=== PATIENT | male | born 1950 | race Caucasian/White ===

== ENCOUNTER 2016-11-25 12:56 | Day surgery (SDC) | payer MEDICARE ==
[2016-11-25 12:55] VITALS: RESP 20; TEMP 97.7
[2016-11-25 13:14] LABS: Mean Platelet Volume 7.7
[2016-11-25 13:21] LABS: INR 1.1 (<1.1); Prothrombin Time 10.9 sec (9.0-12.0)
[2016-11-25 13:28] LABS: Non-African American GFR(MDRD) >60 (>60 ml/min/1.73 sqM)
[2016-11-25] MEDS: ALBUMIN HUMAN 25% 50 ML in EMPTY BAG 1 BAG IVPB SCH ×4 (14:18→14:58)
[2016-11-25 15:44] VITALS: BP 134/73; PULSE 61
--- NOTE | 2016-11-25 20:02 | US ---
Therapeutic paracentesis. CLINICAL HISTORY: Ascites The procedure was discussed with the patient. The risks, complications, benefits, and alternatives we re discussed and any questions were answered. Informed consent was obtained. The patient was placed s upine on the ultrasound table and prepped and draped in the usual sterile fashion. All elements of maximal barrier technique were utilized. Under ultrasound guidance, access into the right lower quadrant was obtained, via the paracentesis catheter system and direct ultrasound guidanc e. Approximately 11 liters of straw-colored fluid was removed. The patient was stable throughout the pro cedure and remained stable upon discharge from Department of Radiology. IMPRESSION: Successful therapeutic paracentesis under ultrasound guidance.
== END 2016-11-25 16:10 | disposition home or self-care (01) ==
LOC: RADPROMAIN 12:56
PROVIDERS: ATTEND Family Medicine
DX: K70.31 Alcoholic cirrhosis of liver with ascites (principal)
CPT/HCPCS: 82565; 85049; 85610; 96365; 36415; 49083; P9047

== ENCOUNTER 2016-12-15 11:53 | Day surgery (SDC) | payer MEDICARE ==
[2016-12-15 12:07] VITALS: TEMP 97.4
[2016-12-15 12:19] LABS: INR 1.2 (<1.1); Prothrombin Time 11.7 sec (9.0-12.0)
[2016-12-15 12:27] LABS: ALT 29 U/L (21-72); AST 27 U/L (17-59); Alkaline Phosphatase 106 U/L (38-126); Anion Gap 12 mmol/L; Blood Urea Nitrogen 58 mg/dL (9-20); Calcium 8.3 mg/dL (8.4-10.2); Carbon Dioxide 19 mmol/L (22-30); Chloride 112 mmol/L (98-107); Glucose 111 mg/dL (74-99); Non-African American GFR(MDRD) 50 (>60 ml/min/1.73 sqM); Potassium 4.7 mmol/L (3.5-5.1); Sodium 143 mmol/L (137-145); Total Bilirubin 0.6 mg/dL (0.2-1.3); Total Protein 7.1 g/dL (6.3-8.2)
[2016-12-15 12:28] LABS: Anisocytosis Slight; Basophils % (A) 1 %; CH 27.8; CHCM 30.2; Eosinophils # (A) 0.1 k/uL (0-0.7); Eosinophils % (A) 2 %; HDW 2.91; Hypochromasia Marked; Luc # (Auto) 0.19; Luc % (Auto) 3; Lymphocytes # (A) 1.3 k/uL (1.0-4.8); Lymphocytes % (A) 18 %; MCH 28.5 pg (25.0-35.0); MCHC 30.8 g/dL (31.0-37.0); MCV 92.5 fL (80.0-100.0); Mean Platelet Volume 9.1; Monocytes # (A) 0.6 k/uL (0-1.0); Monocytes % (A) 8 %; Neutrophils # (A) 4.9 k/uL (1.3-7.7); Neutrophils % (A) 69 %; RBC 2.33 m/uL (4.30-5.90); RDW 16.6 % (11.5-15.5); WBC 7.1 k/uL (3.8-10.6); WBC (Perox) 7.12
[2016-12-15 12:32] LABS: HGB 6.6 gm/dL (13.0-17.5)
[2016-12-15 12:34] LABS: HCT 21.5 % (39.0-53.0)
[2016-12-15 14:02] LABS: Cholesterol 115 mg/dL (<200); HDL Cholesterol 21 mg/dL (40-60); Triglycerides 143 mg/dL (<150)
[2016-12-15] MEDS: ALBUMIN HUMAN 25% 50 ML in EMPTY BAG 1 BAG IVPB SCH ×4 (14:19→15:06)
[2016-12-15 16:22] VITALS: BP 105/78; PULSE 76; RESP 18
--- NOTE | 2016-12-16 08:40 | US ---
Therapeutic paracentesis. CLINICAL HISTORY: Ascites The procedure was discussed with the patient. The risks, complications, benefits, and alternatives we re discussed and any questions were answered. Informed consent was obtained. The patient was placed s upine on the ultrasound table and prepped and draped in the usual sterile fashion. All elements of maximal barrier technique were utilized. Under ultrasound guidance, access into the right lower quadrant was obtained, via the paracentesis catheter system and direct ultrasound guidanc e. Approximately 14 liters of straw-colored fluid was removed. The patient was stable throughout the pro cedure and remained stable upon discharge from Department of Radiology. IMPRESSION: Successful therapeutic paracentesis under ultrasound guidance.
== END 2016-12-15 16:10 | disposition home or self-care (01) ==
LOC: RADPROMAIN 11:53
PROVIDERS: ATTEND Family Medicine
DX: R18.8 Other ascites (principal)
CPT/HCPCS: 86900; 86901; 80061; 80053; 85025; 85610; 86850; 96365; 36415; 49083; P9047

== ENCOUNTER 2016-12-15 15:54 | Inpatient (IN) | payer MEDICARE ==
[2016-12-15] MEDS ORDERED: PANTOPRAZOLE 40 MG/10 ML VIAL IVP STA (16:47)
[2016-12-15] MEDS ORDERED: OCTREOTIDE 100 MCG/ML INJ IVP STA (16:47)
[2016-12-15] MEDS ORDERED: SODIUM CHLORIDE 0.9% 1,000 ML IV STA (16:47)
[2016-12-15] MEDS ORDERED: OCTREOTIDE 200 MCG in SODIUM CHLORIDE 0.9% 100 ML IV STA (16:52)
--- NOTE | 2016-12-15 17:18 | ED ---
General Adult HPI - General Chief complaint: Recheck/Abnormal Lab/Rx Stated complaint: Dr Barbara Time Seen by Provider: 12/15/16 16:28 Source: patient Mode of arrival: wheelchair Limitations: no limitations - History of Present Illness Initial comments: This 66-year-old white male presents with a complaint of low hemoglobin. He apparently had a paracentesis done this morning and they checked his blood prior and found that his hemoglobin was 6.6. He also relates that he has had some black stools for the last 2 days. He has had occasional midepigastric abdominal pain as well. His energy level has been decreased. He denies any fevers. He does take Aleve at times but denies any known blood thinners. He does have a long history of liver disease. He has a history of alcoholic cirrhosis but stopped drinking in May 2016. He usually gets a paracentesis done every 10 days or so. He relates that they removed 14 L from his abdomen today. He also has a history of esophageal varices. No other complaints or modifying factors. - Related Data Home Medications Medication Instructions Recorded Confirmed Folic Acid 0.4 mg PO DAILY 03/04/16 12/15/16 Thiamine [Vitamin B-1] 100 mg PO DAILY 07/07/16 12/15/16 Naproxen Sodium [Aleve] 220 mg PO BID PRN 12/15/16 12/15/16 Previous Rx's Medication Instructions Recorded Metoprolol Tartrate [Lopressor] 25 mg PO BID #60 tab 06/23/16 Allergies Allergy/AdvReac Type Severity Reaction Status Date / Time Penicillins Allergy Rash/Hives Verified 12/15/16 16:45 Review of Systems ROS Statement: Those systems with pertinent positive or pertinent negative responses have been documented in the HPI. ROS Other: All systems not noted in ROS Statement are negative. Past Medical History Past Medical History: Atrial Fibrillation, Asthma, Heart Failure, COPD, GERD/ Reflux, GI Bleed, Hyperlipidemia, Hypertension, Liver Disease, Skin Disorder Additional Past Medical History / Comment(s): pancreatitis, ascities due to alcoholic cirrhosis,rt inguinal hernia, alcoholism with DTs in past, cirrhosis with therapeutic paracentesis, esophageal varices, thrombocytopenia normocytic/ normochromic anemia, ascites,emphysema, bronchitis, black stools over weekend () History of Any Multi-Drug Resistant Organisms: Unobtainable Past Surgical History: Hernia Repair Additional Past Surgical History / Comment(s): EGD, laser esophageal varices surgery, multi paracentesis ,severed tendon lt thumb repaired. Past Anesthesia/Blood Transfusion Reactions: No Reported Reaction Past Psychological History: No Psychological Hx Reported Additional Psychological History / Comment(s): Pt states he lives alone in a mobile home. He states he is independent. He uses no assistive device. He drives. Patient has bed bugs in his home and have been seen on past admissions. Smoking Status: Current every day smoker Past Alcohol Use History: None Reported, Heavy Additional Past Alcohol Use History / Comment(s): Pt states he started smoking in 1965, used to smoke 1.5 ppd(rolls own) down to 10-15 cig per day.. He states he was drinking a quart of vodka daily but quit cold turkey 10 days ago. 07/07/2016 pt states that he has quit drinking and smoking. 08/11 denies drinking. 9/ Past Drug Use History: Marijuana Additional Drug Use History / Comment(s): Pt states on occasion he will smoke marijuana but not regularly. 08/11 denies smoking - Past Family History Father Family Medical History: Coronary Artery Disease (CAD), CVA/TIA, Myocardial Infarction ([place]) Additional Family Medical History / Comment(s): Father at 75 yrs. Mother Family Medical History: COPD Additional Family Medical History / Comment(s): Mother of bronchitis. She was 68yrs old. General Exam - General Exam Comments Initial Comments: GENERAL: The patient is well nourished and well hydrated. VITAL SIGNS: Heart rate, blood pressure, respiratory rate reviewed as recorded in nurse's notes. EYES: Pupils are round and reactive. Extraocular movements are intact. No conjunctival / lid redness or swelling. ENT: No external evidence of injury, swelling, or ecchymosis. Airway is patent. Throat is clear. NECK: Nontender. No swelling or evidence of injury. No subcutaneous emphysema. Trachea is midline. No thyroid mass. HEART: Regular rate and rhythm. Good peripheral pulses. LUNGS/CHEST: Breath sounds clear and equal bilaterally. No rales, rhonchi, or wheezes. No ecchymosis, subcutaneous emphysema, or tenderness. ABDOMEN: Abdomen soft without tenderness. No palpable masses or organomegaly. No peritoneal signs. No abdominal wall swelling or ecchymosis. EXTREMITIES: No extremity tenderness. Normal muscle tone and function. No thoracolumbar tenderness. There is mild lower extremity edema noted bilaterally. NEUROLOGIC: Sensation is grossly intact. Cranial nerve exam reveals face is symmetrical, tongue is midline, speech is clear. SKIN: No abrasions or ecchymosis is noted. No induration or masses noted. PSYCHIATRIC: Alert and oriented. Appropriate behavior and judgment. Rectal exam: There is slight black stool noted on digital rectal examination. There is mild external hemorrhoids noted. Limitations: no limitations Course Vital Signs 12/15/16 15:58 Temperature 96.8 F L Pulse Rate 70 Respiratory 18 Rate Blood Pressure 104/57 O2 Sat by Pulse 100 Oximetry Medical Decision Making - Medical Decision Making The patient was seen and examined. All diagnostics were reviewed. An EKG is done which shows evidence of atrial fibrillation at a rate of 67. There is some flattened T waves in the lateral leads. There is left axis deviation. The QRS duration is 104 and the QTc interval is 41. The laboratory was reviewed from earlier today. The hemoglobin at that time was 6.6. His hemoglobin now is 5.7. His CO2 was low at 19 and his creatinine was elevated at 1.4. Hemoccult stool is positive. This felt as though his anemia likely is due to a GI bleed. It is felt as though this is likely an upper GI bleed. 2 units of blood were ordered for transfusion. Risks and benefits of transfusion were discussed and he is agreeable. Octreotide as well as Protonix are ordered. Case is discussed with Dr. Erickson and he is agreeable to admission to the hospital with Dr. Banks to consult. He does have a history of esophageal varices and bleeding varices certainly is in the differential. The possibility of a gastritis or peptic ulcer disease certainly is possible as well. - Lab Data Result diagrams: 12/15/16 17:17 Lab Results 12/15/16 12/15/16 12/15/16 Range/Units 17:17 17: 17:17 WBC 5.4 (3.8-10.6) k/uL RBC 2.01 L (4.30-5.90) m/uL Hgb 5.7 L* (13.0-17.5) gm/dL Hct 18.4 L* (39.0-53.0) % MCV 91.5 (80.0-100.0) fL MCH 28.4 (25.0-35.0) pg MCHC 31.1 (31.0-37.0) g/dL RDW 16.6 H (11.5-15.5) % Plt Count 158 (150-450) k/uL Neutrophils % 67 % Lymphocytes % 18 % Monocytes % 9 % Eosinophils % 2 % Basophils % 0 % Neutrophils # 3.7 (1.3-7.7) k/uL Lymphocytes # 1.0 (1.0-4.8) k/uL Monocytes # 0.5 (0-1.0) k/uL Eosinophils # 0.1 (0-0.7) k/uL Basophils # 0.0 (0-0.2) k/uL Hypochromasia Marked Anisocytosis Slight PT 12.4 H (9.0-12.0) sec INR 1.3 (<1.1) APTT 25.4 (22.0-30.0) sec Stool Occult Blood Positive (Negative) Blood Type Blood Type Recheck Antibody Screen Crossmatch Spec Expiration Date 12/15/16 Range/Units 17:17 WBC (3.8-10.6) k/uL RBC (4.30-5.90) m/uL Hgb (13.0-17.5) gm/dL Hct (39.0-53.0) % MCV (80.0-100.0) fL MCH (25.0-35.0) pg MCHC (31.0-37.0) g/dL RDW (11.5-15.5) % Plt Count (150-450) k/uL Neutrophils % % Lymphocytes % % Monocytes % % Eosinophils % % Basophils % % Neutrophils # (1.3-7.7) k/uL Lymphocytes # (1.0-4.8) k/uL Monocytes # (0-1.0) k/uL Eosinophils # (0-0.7) k/uL Basophils # (0-0.2) k/uL Hypochromasia Anisocytosis PT (9.0-12.0) sec INR (<1.1) APTT (22.0-30.0) sec Stool Occult Blood (Negative) Blood Type O Positive Blood Type Recheck No Antibody Screen NEGATIVE Crossmatch See Detail Spec Expiration Date 12/18/2016 Disposition Clinical Impression: GI (gastrointestinal bleed), Symptomatic anemia, Atrial fibrillation, History of esophageal varices, Hepatic failure due to alcoholism, Fatigue, Acute kidney injury, Ascites due to alcoholic cirrhosis, Upper GI bleeding, H/O ETOH abuse Disposition: ADMITTED IP TO THIS HOSP Condition: Fair Time of Disposition: 18:28 Decision Date: 12/15/16 Decision Time: 18:28
[2016-12-15 17:39] LABS: Anisocytosis Slight; Basophils % (A) 0 %; CH 27.7; CHCM 30.4; Eosinophils # (A) 0.1 k/uL (0-0.7); Eosinophils % (A) 2 %; HDW 2.94; Hypochromasia Marked; Luc % (Auto) 4; Lymphocytes % (A) 18 %; MCH 28.4 pg (25.0-35.0); MCHC 31.1 g/dL (31.0-37.0); MCV 91.5 fL (80.0-100.0); Mean Platelet Volume 8.3; Monocytes # (A) 0.5 k/uL (0-1.0); Monocytes % (A) 9 %; Neutrophils # (A) 3.7 k/uL (1.3-7.7); Neutrophils % (A) 67 %; RBC 2.01 m/uL (4.30-5.90); RDW 16.6 % (11.5-15.5); WBC 5.4 k/uL (3.8-10.6); WBC (Perox) 5.28
[2016-12-15 17:47] LABS: HCT 18.4 % (39.0-53.0); HGB 5.7 gm/dL (13.0-17.5)
[2016-12-15 18:07] LABS: INR 1.3 (<1.1); Partial Thromboplastin Time 25.4 sec (22.0-30.0); Prothrombin Time 12.4 sec (9.0-12.0)
[2016-12-15] MEDS ORDERED: SODIUM CHLORIDE 0.9% 500 ML IV STA (18:22)
[2016-12-15] MEDS ORDERED: NALOXONE 0.4 MG/ML 1 ML VIAL IV PRN (18:42)
[2016-12-15 20:45] LABS: Glucose,Whole Blood 104 mg/dL (75-99)
[2016-12-15 21:19] VITALS: BMI 22.6
[2016-12-15] MEDS: METOPROLOL TARTRATE 25 MG TAB PO SCH (21:31)
[2016-12-15] MEDS ORDERED: Potassium Replacement Protocol 1 EACH MISC MISCELLANE PRN (22:59)
[2016-12-15] MEDS ORDERED: Phosphorus Replacement Protoco 1 EACH MISC MISCELLANE PRN (22:59)
[2016-12-15] MEDS ORDERED: Magnesium Replacement Protocol 1 EACH MISC MISCELLANE PRN (22:59)
[2016-12-15] MEDS ORDERED: IPRATROPIUM-ALBUTEROL 3 ML NEB INHALATION PRN (22:59)
[2016-12-15] MEDS: SODIUM CHLORIDE 0.9% 1,000 ML IV SCH (23:00)
[2016-12-15 23:46] LABS: Appearance,Urine Clear (Clear); Bilirubin,Urine 1+ (Negative); Glucose,Urine (UA) Negative (Negative); Ketones,Urine Negative (Negative); Leukocyte Esterase,Urine Negative (Negative); Nitrite,Urine Negative (Negative); Protein,Urine Negative (Negative); Specific Gravity,Urine 1.013 (1.001-1.035); UA Billing (MACRO vs. MICRO) CHEM; Urobilinogen,Urine <2.0 mg/dL (<2.0)
[2016-12-16] MEDS ORDERED: HYDROmorphone 1 MG/ML 1 ML SYRINGE IVP PRN ×2 (00:05)
[2016-12-16] MEDS: MUPIROCIN 2% OINT 22 GM TUBE TOPICAL SCH ×4 (01:47→21:31)
[2016-12-16] MEDS: TRIAMCINOLONE 0.1% CREAM 80 GM TUBE TOPICAL PRN (01:47)
[2016-12-16 01:50] LABS: ALT 25 U/L (21-72); AST 24 U/L (17-59); Alkaline Phosphatase 77 U/L (38-126); Anion Gap 8 mmol/L; Blood Urea Nitrogen 55 mg/dL (9-20); Calcium 7.8 mg/dL (8.4-10.2); Carbon Dioxide 19 mmol/L (22-30); Chloride 115 mmol/L (98-107); Glucose 102 mg/dL (74-99); Non-African American GFR(MDRD) >60 (>60 ml/min/1.73 sqM); Phosphorous 4.7 mg/dL (2.5-4.5); Sodium 142 mmol/L (137-145); Total Bilirubin 0.7 mg/dL (0.2-1.3); Total Protein 6.4 g/dL (6.3-8.2)
[2016-12-16] MEDS: OCTREOTIDE 200 MCG in SODIUM CHLORIDE 0.9% 100 ML IV SCH ×2 (02:43→12:45)
[2016-12-16 03:33] LABS: Anisocytosis Slight; CH 28.6; CHCM 30.9; HCT 23.7 % (39.0-53.0); HDW 3.44; Hypochromasia Marked; MCH 29.3 pg (25.0-35.0); MCHC 31.4 g/dL (31.0-37.0); MCV 93.1 fL (80.0-100.0); Mean Platelet Volume 9.6; Poikilocytosis Slight; RBC 2.55 m/uL (4.30-5.90); RDW 16.5 % (11.5-15.5); WBC 5.3 k/uL (3.8-10.6)
[2016-12-16 03:38] LABS: HGB 7.4 gm/dL (13.0-17.5)
[2016-12-16 03:43] LABS: INR 1.2 (<1.1); Partial Thromboplastin Time 25.1 sec (22.0-30.0); Prothrombin Time 12.3 sec (9.0-12.0)
--- NOTE | 2016-12-16 08:29 | P.PN ---
Subjective 66-year-old male being seen in the intensive care unit the patient was admitted after patient had been reportedly experiencing black tarry stools. Patient stated the black stool started over the weekend. He stated he was bearing thing mid epigastric discomfort as well. Patient stated he felt significantly fatigued and tired with no energy and no appetite. Patient stated that he did show up yesterday to undergo his paracentesis in which 11 L were removed. Patient stated that his hemoglobin at that time was noted to be 5.7 and they advised the patient to come to the emergency room to be seen for the above- mentioned symptoms. Patient does have a history of alcohol cirrhosis patient does give a history of alcohol abuse has been an alcoholic for 40 years. Patient stated that he did quit drinking alcohol in May 2016. Additionally patient has a history of having primary softgel varices and has had multiple EGDs. Also was colonoscopy reportedly last done in 2001 patient additionally has a history of atrial fibrillation is not Coumadin anticoagulation candidate. Patient has seen Dr. Escoto GI service in the past. Patient has a hemoglobin of 5.7 on arrival was given 2 units of packed red blood cells hemoglobin up to 7.4. Patient states that he has had 2-3 black tarry stools since being admitted small volume. Patient currently is reporting no abdominal discomfort no abdominal cramping this been no hematemesis patient states that he gets paracentesis by interventional radiology every 8-10 days for symptomatic ascites Objective - Vital Signs Vital signs: Vital Signs Temp 97.6 F 12/16/16 04:00 Pulse 50 L 12/16/16 07:00 Resp 11 L 12/16/16 07:00 BP 110/61 12/16/16 06:00 Pulse Ox 100 12/16/16 07:00 Intake & Output 12/15/16 12/16/16 12/16/16 18:59 06:59 18:59 Intake Total 1183.58 62.62 Output Total 300 Balance 883.58 62.62 Weight 79.9 kg Intake: Intake, IV Titration 563.58 62.62 Amount Octreotide 200 mcg In 113.58 12.62 Sodium Chloride 0.9% 100 ml @ 25 MCG/HR 12.62 mls/ hr IV .Q8H1M DEANA Rx#: [id number] Sodium Chloride 0.9% 1, 450 50 000 ml @ 50 mls/hr IV . Q20H STA Rx#:[id number] Blood Product 620 Rc As-1 Unit 310 [id number] Rc As-1 Unit 310 [id number] Output: Urine 300 Other: Voiding Method Urinal # Voids 2 - Exam GENERAL APPEARANCE: 66-year-old male patient is alert, oriented 3, in no acute distress talkative cooperative sitting up in bed VITAL SIGNS: Reviewed HEENT: Head is normocephalic and atraumatic. Pupils are equal and reactive. The nares are patent. Oropharynx is clear without lesions. NECK: Supple without lymphadenopathy. Traches midline. HEART: S1, S2. Irregular monitor atrial fibrillation LUNGS: No crackles or wheezes are heard. ABDOMEN: Soft, slight tenderness, nondistended with good bowel sounds. No peritoneal signs. No palpable organomegaly or masses. States urinating no difficulty. Reports no nausea vomiting this been no hematemesis reports has had 3 small black stool since admission EXTREMITIES: Normal skin color and turgor. No cyanosis, rash, ulceration, clubbing or edema. Radial pedal pulses are 2/4 bilaterally. NEUROLOGICAL: No focal deficits. Strength and sensation are grossly intact. - Labs CBC & Chem 7: 12/16/16 03:29 12/16/16 01:13 Labs: Abnormal Lab Results - Last 24 Hours (Table) 12/15/16 12/15/16 12/16/16 Range/Units 20:34 23:30 01:13 RBC (4.30-5.90) m/uL Hgb (13.0-17.5) gm/dL Hct (39.0-53.0) % RDW (11.5-15.5) % Plt Count (150-450) k/uL PT (9.0-12.0) sec Chloride 115 H (98-107) mmol/L Carbon Dioxide 19 L (22-30) mmol/L BUN 55 H (9-20) mg/dL Glucose 102 H (74-99) mg/dL POC Glucose (mg/dL) 104 H (75-99) mg/dL Calcium 7.8 L (8.4-10.2) mg/dL Phosphorus 4.7 H (2.5-4.5) mg/dL Albumin 2.7 L (3.5-5.0) g/dL Urine Bilirubin 1+ H (Negative) 12/16/16 12/16/16 Range/Units 03:29 03:29 RBC 2.55 L (4.30-5.90) m/uL Hgb 7.4 L D (13.0-17.5) gm/dL Hct 23.7 L (39.0-53.0) % RDW 16.5 H (11.5-15.5) % Plt Count 131 L (150-450) k/uL PT 12.3 H (9.0-12.0) sec Chloride (98-107) mmol/L Carbon Dioxide (22-30) mmol/L BUN (9-20) mg/dL Glucose (74-99) mg/dL POC Glucose (mg/dL) (75-99) mg/dL Calcium (8.4-10.2) mg/dL Phosphorus (2.5-4.5) mg/dL Albumin (3.5-5.0) g/dL Urine Bilirubin (Negative) Assessment and Plan Plan: Impression Present on admission symptomatic acute blood loss anemia hemoglobin 5.7 with black tarry stools suspect due to to a GI bleed Chronic atrial fibrillation controlled ventricular response not an anticoagulation candidate due to esophageal varices and frequent falls History of chronic alcoholism greater than 40 years in remission last drink May 2016 per patient report Chronic thrombocytopenia Chronic ascites due to alcoholic cirrhosis with palliative paracentesis Echocardiogram January 2016 left ventricular systolic function moderately impaired EF 40-45% Chronic congestive heart failure systolic dysfunction compensated Mild protein calorie malnutrition suspect due to poor caloric intake Physical debility suspect due to chronic illness A prior MRI of the brain June 2016 chronic small vessel ischemic changes suggest vascular dementia Plan Consult gastroenterology service Monitor hemoglobin attempt keep greater than a 7.5 Keep nothing by mouth until seen by GI service Continue with protonic 40 IV daily line continue with IV fluid at 50 an hour Continue with recommendations by the internist for ICU management Further recommendations pending will follow Resume home meds when appropriate Lopressor 25 twice a day with parameters The above dictated assessment and findings were discussed with dr fleming . Impression and the plan of care have been dictated as directed. Maggie Hernandez nurse practitioner acting as a scribe for dr fleming
[2016-12-16] MEDS: PANTOPRAZOLE 40 MG/10 ML VIAL IV SCH ×2 (08:44→21:31)
[2016-12-16] MEDS: METOPROLOL TARTRATE 25 MG TAB PO SCH ×2 (08:45→21:30)
[2016-12-16] MEDS: IPRATROPIUM-ALBUTEROL 3 ML NEB INHALATION SCH ×4 (08:59→19:16)
[2016-12-16] MEDS ORDERED: PANTOPRAZOLE 40 MG/10 ML VIAL IV SCH (09:00)
--- NOTE | 2016-12-16 09:09 | P.CONS ---
History of Present Illness - Reason for Consult Consult date: 12/16/16 GI bleed and melena Requesting physician: Chucho Erickson - History of Present Illness 66-year-old gentleman patient of Dr. Chucho Erickson with a past medical history of EtOH abuse, pancreatitis, alcohol liver cirrhosis, portal hypertension, recurrent ascites with paracentesis yesterday 12/15/2016 with 14 L removal, chronic thrombocytopenia coagulopathy, esophageal varices, GI bleeding, COPD, cigarette dependency, heart failure, GERD, hypertension, asthma, hyperlipidemia. Presents with 3 day history of black stools. Taking NSAIDs; Aleve 2 tablets daily. Denies active alcohol intake. Denies fever or chills or abdominal pain. No hematemesis or hematochezia. Last black stool yesterday evening. Hemoglobin 6.6 dropped to 5.7 received 2 units of blood current hemoglobin 7.4. Platelet 131. INR 1.2. BUN 58. Creatinine 1.4. LFTs total bilirubin within normal limits. AFP less than 1.25 May 2016. Upon review of medical records average hemoglobin between 10-12. Patient does not take diuretics as he feels they don't help. No GI prophylaxis. Currently receiving IV Sandostatin. Hemodynamically stable. Afebrile. Upon review of medical records last EGD January [address] Banks however dictated report is not available to review. Review of Systems Constitutional: Denies fever, chills, sweats, weight gain, or loss. HEENT: Negative for migraines, blurred vision or loss, earaches, drainage, tinnitus, oral mucosal lesions, dysphagia, or odynophagia. Cardiac: Hypertension. Hyperlipidemia. H of fibrillation. Heart failure. Negative for chest pain, arrhythmias, or palpitation. Respiratory: Asthma. COPD. Negative for shortness of breath, hemoptysis, cough , or sputum production. Gastrointestinal: See HPI for pertinent findings. Genitourinary: Negative for hematuria, urgency, frequency, polyuria, dysuria, or penile discharge. Musculoskeletal: Negative for muscle aches, swelling, arthritis, and arthralgias. Neurologic: Negative for stroke or TIA. Endocrine: Negative for thyroid problems. Skin: Negative for rash or itching. Psychiatric: Negative history for depression and anxiety All systems: negative (See HPI) Past Medical History Past Medical History: Atrial Fibrillation, Asthma, Heart Failure, COPD, GERD/ Reflux, GI Bleed, Hyperlipidemia, Hypertension, Liver Disease, Skin Disorder Additional Past Medical History / Comment(s): pancreatitis, ascities due to alcoholic cirrhosis,rt inguinal hernia, alcoholism with DTs in past, cirrhosis with therapeutic paracentesis, esophageal varices, thrombocytopenia normocytic/ normochromic anemia, ascites,emphysema, bronchitis, black stools over weekend () History of Any Multi-Drug Resistant Organisms: None Reported Past Surgical History: Hernia Repair Additional Past Surgical History / Comment(s): EGD, laser esophageal varices surgery, multi paracentesis ,severed tendon lt thumb repaired; "ruptured navel Past Anesthesia/Blood Transfusion Reactions: Motion Sickness Past Psychological History: No Psychological Hx Reported Additional Psychological History / Comment(s): Pt states he lives alone in a mobile home. He states he is independent. He uses no assistive device. He drives. Patient has bed bugs in his home and have been seen on past admissions. Smoking Status: Current every day smoker Past Alcohol Use History: Heavy Additional Past Alcohol Use History / Comment(s): Pt states he started smoking in 1965, used to smoke 1.5 ppd(rolls own) down to 10-15 cig per day.. He states he was drinking a quart of vodka daily but quit cold turkey 10 days ago. 07/07/2016 pt states that he has quit drinking and smoking. 08/11 denies drinking. 9/ Past Drug Use History: Marijuana Additional Drug Use History / Comment(s): Pt states on occasion he will smoke marijuana but not regularly. 08/11 denies smoking - Past Family History Father Family Medical History: Coronary Artery Disease (CAD), CVA/TIA, Myocardial Infarction ([place]) Additional Family Medical History / Comment(s): Father at 75 yrs. Mother Family Medical History: COPD Additional Family Medical History / Comment(s): Mother of bronchitis. She was 68yrs old. Medications and Allergies Home Medications Medication Instructions Recorded Confirmed Type Folic Acid 0.4 mg PO DAILY 03/04/16 12/16/16 History Thiamine [Vitamin B-1] 100 mg PO DAILY 07/07/16 12/16/16 History Naproxen Sodium [Aleve] 220 mg PO BID PRN 12/15/16 12/16/16 History Allergies Allergy/AdvReac Type Severity Reaction Status Date / Time Penicillins Allergy Rash/Hives Verified 12/15/16 21:24 Physical Exam Vitals: Vital Signs Temp Pulse Resp BP Pulse Ox 12/16/16 07:00 50 L 11 L 100 12/16/16 06:00 62 39 H 110/61 100 12/16/16 05:00 47 L 13 116/64 100 12/16/16 04:00 97.6 F 53 L 11 L 105/61 100 12/16/16 03:00 62 34 H 98/63 96 12/16/16 02:00 57 L 28 H 124/65 100 12/16/16 01:30 55 L 14 108/56 100 12/16/16 01:00 55 L 13 138/67 100 12/16/16 00:30 97.6 F 59 L 16 107/73 100 12/16/16 00:20 57 L 13 136/73 100 12/16/16 00:00 97.6 F 50 L 16 131/72 100 12/15/16 23:50 55 L 15 107/56 100 12/15/16 23:30 60 20 120/85 100 12/15/16 23:20 61 16 123/63 100 12/15/16 23:00 63 18 112/57 100 12/15/16 22:50 97.6 F 63 45 H 131/76 87 L 12/15/16 22:40 97.6 F 66 26 H 105/57 98 12/15/16 22:30 97.6 F 68 28 H 105/57 95 12/15/16 22:20 97.6 F 68 15 124/61 100 12/15/16 22:10 69 15 141/72 100 12/15/16 22:00 97.6 F 72 19 141/72 100 12/15/16 21:50 80 24 139/75 94 L 12/15/16 21:30 79 16 104/66 12/15/16 21:00 97.6 F 68 22 113/61 100 12/15/16 20:00 97.6 F 73 18 121/65 12/15/16 19:50 97.8 F 83 18 135/66 12/15/16 19:46 97.2 F L 72 18 121/59 100 Intake and Output 12/15/16 12/16/16 12/16/16 22:59 06:59 14:59 Intake Total 372.62 810.96 62.62 Output Total 300 Balance 372.62 510.96 62.62 Intake: Intake, IV Titration 62.62 500.96 62.62 Amount Octreotide 200 mcg In 12.62 100.96 12.62 Sodium Chloride 0.9% 100 ml @ 25 MCG/HR 12.62 mls/ hr IV .Q8H1M [facility] Rx#: [id number] Sodium Chloride 0.9% 1, 50 400 50 000 ml @ 50 mls/hr IV . Q20H STA Rx#:[id number] Blood Product 310 310 Rc As-1 Unit 310 [id number] Rc As-1 Unit 0 310 [id number] Output: Urine 300 Other: Voiding Method Urinal Urinal # Voids 2 Weight 79.9 kg General appearance: The patient is alert, oriented, in no acute distress. HET: Head is normocephalic and atraumatic. Pupils are equal and reactive. Oropharynx is clear without lesions. Neck: Supple without lymphadenopathy. Trachea midline. Heart: S1 S2. Regular rate and rhythm. Lungs: No crackles or wheezes are heard. Abdomen: Soft, nontender, nondistended with bowel sounds. No appreciable ascites. No peritoneal signs. No palpable organomegaly or masses. Extremities: +1/+2 bilaterally lower extremity edema. Neurological: No focal deficits. Strength and sensation are grossly intact. Results CBC & Chem 7: 12/16/16 03:29 12/16/16 01:13 Labs: Abnormal Lab Results - Last 24 Hours (Table) 12/15/16 12/15/16 12/16/16 Range/Units 20:34 23:30 01:13 RBC (4.30-5.90) m/uL Hgb (13.0-17.5) gm/dL Hct (39.0-53.0) % RDW (11.5-15.5) % Plt Count (150-450) k/uL PT (9.0-12.0) sec Chloride 115 H (98-107) mmol/L Carbon Dioxide 19 L (22-30) mmol/L BUN 55 H (9-20) mg/dL Glucose 102 H (74-99) mg/dL POC Glucose (mg/dL) 104 H (75-99) mg/dL Calcium 7.8 L (8.4-10.2) mg/dL Phosphorus 4.7 H (2.5-4.5) mg/dL Albumin 2.7 L (3.5-5.0) g/dL Urine Bilirubin 1+ H (Negative) 12/16/16 12/16/16 Range/Units 03:29 03:29 RBC 2.55 L (4.30-5.90) m/uL Hgb 7.4 L D (13.0-17.5) gm/dL Hct 23.7 L (39.0-53.0) % RDW 16.5 H (11.5-15.5) % Plt Count 131 L (150-450) k/uL PT 12.3 H (9.0-12.0) sec Chloride (98-107) mmol/L Carbon Dioxide (22-30) mmol/L BUN (9-20) mg/dL Glucose (74-99) mg/dL POC Glucose (mg/dL) (75-99) mg/dL Calcium (8.4-10.2) mg/dL Phosphorus (2.5-4.5) mg/dL Albumin (3.5-5.0) g/dL Urine Bilirubin (Negative) Assessment and Plan (1) Acute GI bleeding Narrative/Plan: 66-year-old gentleman admitted with acute GI bleed suspect upper with acute blood loss anemia, melena and a history of varices with underlying alcohol liver disease portal hypertension, ascites and coagulopathy. Suspect variceal bleed with recent NSAID usage possible NSAID-induced peptic ulcer disease possible NSAID-induced esophageal variceal bleed. Status: Acute (2) Coagulopathy Status: Chronic (3) H/O esophageal varices Status: Chronic (4) Portal hypertension Status: Chronic (5) Thrombocytopenia Status: Chronic (6) Ascites due to alcoholic cirrhosis Status: Chronic (7) Acute blood loss anemia Status: Acute Plan: 1. EGD evaluation today. 2. IV Protonix 20 mg twice daily. 3. IV antibiotic prophylaxis for prevention of SBP. 4. Monitor CBC closely. 5. Repeat AFP and check ammonia level. 6. We'll start diuretics tomorrow Lasix 40 mg daily. Aldactone 100 mg daily. We'll also consider Inderal therapy after review of EGD examination findings. The dispensary technician has discussed the risks, benefits and alternative therapies for the above-mentioned procedure and for both sedation/analgesia as well as necessary blood product administration, if indicated, as they pertain to this patient. The patient has indicated understanding and acceptance of the risks and procedures discussed. Thank you for this kind referral and the opportunity to participate in the care of your patient. This consultation was discussed with Dr. Avila. The impression and plan of care have been directed as dictated.
--- NOTE | 2016-12-16 11:24 | HP ---
DATE OF ADMISSION: CHIEF COMPLAINT: A 66-year-old white male with GI bleeding. HISTORY OF PRESENT ILLNESS: This is 66-year-old white male with a history of GI bleeding. He had paracentesis done apparently yesterday. He came into the hospital at this time with a hemoglobin of 6.6 down to 5.2. He received 2 units of blood. He has had black stools for 2 to 3 days. He states he has not been drinking alcohol but has been taking like ( ) doses. He has a history of alcohol cirrhosis. He states he has stopped drinking in May 2016. He has a history of esophageal varices. He was admitted to the hospital, put on ( ) for esophageal variceal bleeding. GI and surgical consults are pending. HOME MEDICATIONS: 1. Folic acid. 2. Thiamine. 3. Naprosyn. 4. Metoprolol 25 b.i.d. for tachycardia and hypertension and atrial fibrillation. He has been off blood thinners due to bleeding in the past. Allergies are to PENICILLINS. REVIEW OF SYSTEMS: INTEGUMENT: He states he has been having bedbug issues with skin. CARDIAC: History of atrial fibrillation. PULMONARY: History of asthma and COPD. CARDIAC: History of hypertension. GI: ( ) liver disease, end-stage liver disease from alcoholism for which he gets paracentesis every 10 days. Past surgeries include EGD, laser esophageal varices surgery, multiple paracenteses every 10 days, tendon in the left arm repaired. PAST MEDICAL HISTORY: Pancreatitis, ascites due to alcoholic cirrhosis, right inguinal hernia, esophageal varices, thrombocytopenia, normocytic, normochromic anemia, emphysema. SOCIAL HISTORY: He lives alone in a mobile home. He has bed bugs. He is independent. No assistive devices. A current every day smoker. Unsure about heavy alcohol if he stopped really or not. He smoked 1-1/2 packs of cigarettes a day 10 to 15 cigarettes day since 1965. He had O positive blood type. CARDIOVASCULAR: S1, S2, irregularly, irregular rhythm. LUNGS: Transmitted upper airway sounds. INTEGUMENT: He has some pruritic areas he has been itching on his skin. Some excoriation area and track bains for bugs diffuse across the skin. GI: Distended secondary to ascites. HEMATOLOGIC: Negative Homans. VASCULAR: Normal dorsalis pedis, posterior tibial and radials pulses. Labs were reviewed. At this time assessment is: 1. Acute gastrointestinal bleed secondary to esophageal varices most likely. 2. Chronic atrial fibrillation. 3. Asthma, chronic obstructive pulmonary disease. 4. Gastroesophageal reflux disease. 5. Dyslipidemia. 6. Hypertension. 7. Skin disorder. PLAN: Continue with current treatments. Blood transfusions as needed if hemoglobin is under 7 with active GI bleeding. It is 7.4 now. Will check hemoglobins every 6 hours. INR is 1.2. BUN 55, creatinine is 1.20. Sugars in the mid 100s. Calcium is low at 7.8. Phosphorus high at 4.7. Await surgical consult and GI consult. Alcohol level is less than 10 on admission. Watch for signs of DT. Continue with metoprolol for hypertension. Pulses in the 40s to 60s. Blood pressure is 105 to 116 over 60's. O2, 100% on 2 L. Continue with current treatments.
[2016-12-16 11:30] LABS: Anisocytosis Slight; CH 28.5; CHCM 30.4; HCT 23.3 % (39.0-53.0); HDW 3.48; HGB 7.1 gm/dL (13.0-17.5); Hypochromasia Marked; MCH 28.7 pg (25.0-35.0); MCHC 30.4 g/dL (31.0-37.0); MCV 94.4 fL (80.0-100.0); Mean Platelet Volume 8.1; Poikilocytosis Slight; RBC 2.47 m/uL (4.30-5.90); RDW 16.8 % (11.5-15.5); WBC 4.4 k/uL (3.8-10.6)
[2016-12-16] MEDS: LEVOFLOXACIN 500MG-D5W PMX 500 MG in DEXTROSE/WATER 1 100ML.BAG IVPB SCH (12:44)
--- NOTE | 2016-12-16 12:59 | CONS ---
DATE OF CONSULTATION: Reason for consult is general ICU care. HISTORY OF PRESENTING ILLNESS: Mr. Tamir Garcia is a 66-year-old male who was seen, evaluated, and examined. Clinically, patient is doing well. Denies any confusion. This patient; however, has not been feeling well for the last few days, has been having dark stool. Patient regularly gets large volume paracentesis every couple of weeks, in fact he was being planned for that. Patient underwent large volume paracentesis on the morning of 12/15/2016 and due to problems associated with low hemoglobin and not feeling well and dark stool, he was sent to the emergency department for further evaluation. From there because of those problems and issues, has been admitted to the hospital. Past medical history significant for: 1. Cirrhosis of the liver with portal hypertension and large ascites requiring large volume paracentesis every 10 to 14 days. 2. History of esophageal varices. 3. Hypertension, chronic atrial fibrillation. 4. GERD. 5. History of GI bleed. 6. Dyslipidemia. 7. Hypertension. 8. Hypertensive cardiovascular disease. 9. Chronic pancreatitis. 10. History of delirium tremens and alcoholism in the past. 11. Chronic thrombocytopenia. 12. History of COPD, emphysema, has smoked 1 pack per day. Past surgical history is significant for hernia repair, large volume paracentesis, status post EGD, laser esophageal variceal surgery, history of left thumb tendon repair. FAMILY HISTORY AND SOCIAL HISTORY: Smokes 1 pack per day. Has smoked close to about 40 to 45 years, alcohol consumption, stopped drinking heavily a few weeks ago. Also smokes marijuana on a regular basis. On arrival, patient's hemoglobin was noted to be only 5.7. His medications at home include thiamine 100 mg daily, Aleve 220 mg as needed, metoprolol 25 two times a day, folic acid 0.4 mg daily. Current medications in the hospital include: DuoNeb unit dose updraft 4 times a day. Also on folic acid 1 mg daily, Lasix 40 mg daily, Dilaudid for pain control, Levaquin 500 mg daily, metoprolol is 25 mg p.o. 2 times a day, ( ) phos replacement protocol. Also on octreotide drip as per protocol, Protonix 40 mg IV q.12, Aldactone 100 mg daily, vitamin B1. REVIEW OF SYSTEMS: ENGINEERING DOCUMENT CONTROL CLERK: Denies any seizure-like activity, loss of consciousness, or hemiparesis. CARDIORESPIRATORY: Otherwise unremarkable and noncontributory except as ( ). GI/: Unremarkable. MUSCULOSKELETAL: Unremarkable and noncontributory. DERMATOLOGICAL: Unremarkable and noncontributory. On examination, most recent vitals include blood pressure is 110/60, respiratory rate is in mid teens, heart rate 56, temperature 98, saturation of 98% to 100%. Last blood pressure check was 95/60. HEENT EXAMINATION: Atraumatic, normocephalic. Pharynx is clear without exudate. NECK: Supple without lymphadenopathy, jugular venous distention or carotid bruit. LUNGS: Bilateral good air entry is present with fine expiratory rhonchi on forced expiration. HEART: Regular rate and rhythm, S1 and S2 audible. Abdomen is slightly distended but soft. No rebound or rigidity. EXTREMITIES: +1 peripheral pulses. NEUROLOGICAL EXAMINATION: Awake and alert. Labs are reviewed. White cell count is 5,400, hemoglobin and hematocrit 5.7 and 18, platelet 158,000. PT and INR are 12.4 and 1.3. PTT is 25.4. Posttransfusion hemoglobin improved to 7.4, platelet count of 131,000. Sodium 140, potassium 5.0, calcium 7.8, phosphorus 4.7, albumin is 2.7. Alcohol level less than 10, marijuana is not detected, cocaine is not detected as well. IMPRESSION: 1. Acute blood loss anemia with symptoms of dizziness and lightheadedness, likely upper gastrointestinal bleed, presented with dark lower gastrointestinal bleed. 2. Severe anemia related to above. 3. History of cirrhosis of the liver, portal hypertension and recurrent ascites requiring large volume paracentesis on a fairly regular basis. 4. History of alcohol consumption. PLAN AND RECOMMENDATION: 1. Patient has been on octreotide being planned and evaluated by GI services. Patient is also on Protonix and being considered for possible endoscopy. He is n.p.o. at this point in time. If significant varices is seen, may need to be in ( ) or sclerosed. 2. Chronic obstructive pulmonary disease overall appears to be stable. Would recommend to maintain patient on breathing treatments. Noted chest x-ray has not been performed. Will order a chest x-ray as well. Further recommendations pending. Plan of care as per clinical response of the patient.
--- NOTE | 2016-12-16 13:37 | XR ---
EXAMINATION TYPE: XR chest 1V DATE OF EXAM: 12/16/2016 10:08 AM COMPARISON: 06/18/2016 HISTORY: COPD TECHNIQUE: Single frontal view of the chest is obtained. FINDINGS: There is no focal air space opacity, pleural effusion, or pneumothorax seen. The cardiac silhouette size is within normal limits. The osseous structures are intact. Linear changes at the l sedrick bases most typical of atelectasis. Heart is mildly enlarged. Hypertrophic change of the spine. Mi ld cardiomegaly. IMPRESSION: 1. Subsegmental linear changes most typical of atelectasis 2. COPD 3. Cardiomegaly
[2016-12-16] MEDS ORDERED: PROPOFOL 10 MG/ML 20 ML VIAL IV ONE (13:59)
--- NOTE | 2016-12-16 14:43 | P.PCN ---
Date of Procedure: 12/16/16 Procedure(s) Performed: Procedure: Esophagogastroduodenoscopy. Preoperative diagnosis: Anemia and suspected GI bleeding. Postoperative diagnosis: Gastritis consistent with portal gastropathy but no evidence of bleeding. No esophageal or gastric varices. Preparation and sedation: Was provided by anesthesia. Brief clinical history: The patient is a 66-year-old male with past medical history of EtOH abuse, pancreatitis, alcohol liver cirrhosis, portal hypertension, recurrent ascites with paracentesis yesterday 12/15/2016 with 14 L removal, chronic thrombocytopenia, coagulopathy, esophageal varices, GI bleeding, COPD, cigarette dependency, heart failure, GERD, hypertension, asthma , hyperlipidemia. He presnted with a 3 day history of black stools. Was taking aleve 2 tablets daily. Denies active alcohol intake. Denies fever or chills or abdominal pain. No hematemesis or hematochezia. Last black stool yesterday evening. Hemoglobin was 6.6 and has dropped to 5.7 after which he has received 2 units of blood current hemoglobin 7.4. Platelet 131. INR 1.2. BUN 58. Creatinine 1.4. LFTs total bilirubin within normal limits. The details are summarized in the history and physical and dictated consultation. This evaluation is to assess for a source of upper GI bleeding. Procedure: With the patient on his left lateral decubitus position and after informed consent and adequate sedation, I passed the Olympus-GIF 160 video upper endoscope through the cricopharyngeus down the esophagus. There was some scarring in the distal esophagus consistent with obliterated esophageal varices , but I did not see any evidence of esophagitis, mucosal tears or bleeding. The endoscope was then passed into the stomach which was insufflated with air and inspected in detail including the retroflex view in the cardia. There was mottling, erythema and pinpoint submucosal hemorrhage consistent with gastritis , likely portal gastropathy, but there was no ulcers or active bleeding. There were no gastric varices. Pyloric channel, duodenal bulb, post bulbar area and descending duodenum appeared within normal limits. No biopsies were indicated. The patient tolerated the procedure well. Plan: The patient was reassured. Will allow diet and monitor his blood counts closely and make further plans based on his course.
[2016-12-16] MEDS: THIAMINE 100 MG TAB PO SCH (15:47)
[2016-12-16] MEDS: FOLIC ACID 1 MG TAB PO SCH (15:47)
[2016-12-16 16:34] LABS: Anisocytosis Slight; CH 28.6; CHCM 30.1; HCT 24.9 % (39.0-53.0); HDW 3.42; HGB 7.6 gm/dL (13.0-17.5); Hypochromasia Marked; MCH 29.3 pg (25.0-35.0); MCHC 30.5 g/dL (31.0-37.0); MCV 95.8 fL (80.0-100.0); Macrocytosis Slight; Mean Platelet Volume 8.6; Poikilocytosis Slight; RBC 2.59 m/uL (4.30-5.90); WBC 4.7 k/uL (3.8-10.6)
[2016-12-16] MEDS: SODIUM CHLORIDE 0.9% 1,000 ML IV SCH (19:34)
[2016-12-16 22:34] LABS: Anisocytosis Slight; CH 28.7; CHCM 30.9; HCT 23.1 % (39.0-53.0); HDW 3.42; HGB 7.3 gm/dL (13.0-17.5); Hypochromasia Marked; MCH 29.6 pg (25.0-35.0); MCHC 31.6 g/dL (31.0-37.0); MCV 93.7 fL (80.0-100.0); Mean Platelet Volume 9.1; Poikilocytosis Slight; RBC 2.46 m/uL (4.30-5.90); RDW 16.9 % (11.5-15.5); WBC 5.2 k/uL (3.8-10.6)
[2016-12-17 04:15] LABS: Anisocytosis Slight; Basophils % (A) 0 %; CH 28.3; CHCM 29.4; Eosinophils # (A) 0.2 k/uL (0-0.7); Eosinophils % (A) 5 %; HCT 24.5 % (39.0-53.0); HDW 3.29; HGB 7.3 gm/dL (13.0-17.5); Hypochromasia Marked; Luc # (Auto) 0.12; Luc % (Auto) 3; Lymphocytes # (A) 0.8 k/uL (1.0-4.8); Lymphocytes % (A) 19 %; MCH 28.8 pg (25.0-35.0); MCHC 29.6 g/dL (31.0-37.0); MCV 97.1 fL (80.0-100.0); Macrocytosis Slight; Mean Platelet Volume 8.8; Monocytes # (A) 0.4 k/uL (0-1.0); Monocytes % (A) 9 %; Neutrophils # (A) 2.8 k/uL (1.3-7.7); Neutrophils % (A) 65 %; RBC 2.53 m/uL (4.30-5.90); WBC 4.4 k/uL (3.8-10.6); WBC (Perox) 4.55
[2016-12-17 04:30] LABS: INR 1.2 (<1.1); Partial Thromboplastin Time 24.8 sec (22.0-30.0); Prothrombin Time 11.9 sec (9.0-12.0)
[2016-12-17 04:34] LABS: Anion Gap 10 mmol/L; Blood Urea Nitrogen 46 mg/dL (9-20); Calcium 7.7 mg/dL (8.4-10.2); Carbon Dioxide 17 mmol/L (22-30); Chloride 114 mmol/L (98-107); Glucose 100 mg/dL (74-99); Magnesium 1.9 mg/dL (1.6-2.3); Non-African American GFR(MDRD) 50 (>60 ml/min/1.73 sqM); Potassium 4.6 mmol/L (3.5-5.1); Sodium 141 mmol/L (137-145)
[2016-12-17] MEDS: METOPROLOL TARTRATE 25 MG TAB PO SCH ×2 (08:07→21:23)
[2016-12-17] MEDS: FUROSEMIDE 40 MG TAB PO SCH (08:07)
[2016-12-17] MEDS: SPIRONOLACTONE 25 MG TAB PO SCH (08:07)
[2016-12-17] MEDS: PANTOPRAZOLE 40 MG/10 ML VIAL IV SCH (08:07)
[2016-12-17] MEDS: MUPIROCIN 2% OINT 22 GM TUBE TOPICAL SCH ×3 (08:08→21:24)
--- NOTE | 2016-12-17 08:40 | P.PN ---
Subjective Principal diagnosis: GI bleed 66-year-old gentleman admitted with acute GI bleed with melena status post EGD with findings of no evidence of varices with portal gastropathy. No recurrence of black-colored stools 24 hours. Tolerating regular diet. Denies abdominal pain. No emesis. Afebrile. Hemoglobin 7.3 relatively unchanged from yesterday. Objective - Vital Signs Vital signs: Vital Signs Temp 98.9 F 12/17/16 07:00 Pulse 75 12/17/16 07:00 Resp 16 12/17/16 07:00 BP 127/68 12/17/16 07:00 Pulse Ox 96 12/17/16 07:00 Intake & Output 12/16/16 12/17/16 12/17/16 18:59 06:59 18:59 Intake Total 562.62 150 Output Total 2427 100 Balance -1864.38 50 Weight 84 kg Intake: IV 500 150 Sodium Chloride 0.9% 1, 500 150 000 ml @ 50 mls/hr IV . Q20H [facility] Rx#:[id number] Intake, IV Titration 62.62 Amount Octreotide 200 mcg In 12.62 Sodium Chloride 0.9% 100 ml @ 25 MCG/HR 12.62 mls/ hr IV .Q8H1M [facility] Rx#: [id number] Sodium Chloride 0.9% 1, 50 000 ml @ 50 mls/hr IV . Q20H STA Rx#:[id number] Output: Urine 2427 100 Other: Voiding Method Urinal Toilet # Voids 1 - Exam General appearance: The patient is alert, oriented, in no acute distress. HET: Head is normocephalic and atraumatic. Pupils are equal and reactive. Oropharynx is clear without lesions. Neck: Supple without lymphadenopathy. Trachea midline. Heart: S1 S2. Regular rate and rhythm. Lungs: No crackles or wheezes are heard. Abdomen: Soft, nontender, nondistended with bowel sounds. No appreciable ascites. No peritoneal signs. No palpable organomegaly or masses. Extremities: +1/+2 bilaterally lower extremity edema. Neurological: No focal deficits. Strength and sensation are grossly intact. - Labs CBC & Chem 7: 12/17/16 03:52 12/17/16 03:52 Labs: Abnormal Lab Results - Last 24 Hours (Table) 12/16/16 12/16/16 12/16/16 Range/Units 11:02 16:05 22:24 RBC 2.47 L 2.59 L 2.46 L (4.30-5.90) m/uL Hgb 7.1 L 7.6 L 7.3 L (13.0-17.5) gm/dL Hct 23.3 L 24.9 L 23.1 L (39.0-53.0) % MCHC 30.4 L 30.5 L (31.0-37.0) g/dL RDW 16.8 H 17.0 H 16.9 H (11.5-15.5) % Lymphocytes # (1.0-4.8) k/uL Chloride (98-107) mmol/L Carbon Dioxide (22-30) mmol/L BUN (9-20) mg/dL Creatinine (0.66-1.25) mg/dL Glucose (74-99) mg/dL Calcium (8.4-10.2) mg/dL 12/17/16 12/17/16 Range/Units 03:52 03:52 RBC 2.53 L (4.30-5.90) m/uL Hgb 7.3 L (13.0-17.5) gm/dL Hct 24.5 L (39.0-53.0) % MCHC 29.6 L (31.0-37.0) g/dL RDW 17.0 H (11.5-15.5) % Lymphocytes # 0.8 L (1.0-4.8) k/uL Chloride 114 H (98-107) mmol/L Carbon Dioxide 17 L (22-30) mmol/L BUN 46 H (9-20) mg/dL Creatinine 1.40 H (0.66-1.25) mg/dL Glucose 100 H (74-99) mg/dL Calcium 7.7 L (8.4-10.2) mg/dL Microbiology - Last 24 Hours (Table) 12/15/16 23:30 Urine Culture - Preliminary Urine,Clean Catch Assessment and Plan (1) Acute GI bleeding Narrative/Plan: 66-year-old gentleman admitted with acute GI bleed suspect upper with acute blood loss anemia, melena and a history of varices with underlying alcohol liver disease portal hypertension, ascites and coagulopathy. Status post EGD with evidence of portal gastropathy no varices. Status: Acute (2) Coagulopathy Status: Chronic (3) H/O esophageal varices Status: Chronic (4) Portal hypertension Status: Chronic (5) Thrombocytopenia Status: Chronic (6) Ascites due to alcoholic cirrhosis Status: Chronic (7) Acute blood loss anemia Status: Acute Plan: 1. Protonix 40 mg daily. 2. AFP review 2.4. Ammonia within normal limits. 3. Recommend Lasix 40 mg daily. Aldactone 100 mg daily on discharge. 4. Return to GI office in 1-2 weeks. We'll follow as needed. Assessment and plan a care discussed with Dr. Avila.
[2016-12-17] MEDS: IPRATROPIUM-ALBUTEROL 3 ML NEB INHALATION SCH ×5 (09:19→20:07)
[2016-12-17] MEDS: LEVOFLOXACIN 500MG-D5W PMX 500 MG in DEXTROSE/WATER 1 100ML.BAG IVPB SCH (12:03)
[2016-12-17] MEDS: TRIAMCINOLONE 0.1% CREAM 80 GM TUBE TOPICAL PRN (12:06)
[2016-12-17] MEDS: THIAMINE 100 MG TAB PO SCH (12:07)
[2016-12-17] MEDS: FOLIC ACID 1 MG TAB PO SCH (12:07)
--- NOTE | 2016-12-17 12:18 | PN ---
Mr. Garcia is a 66-year-old male seen, evaluated, examined on the 5th floor. Patient has cirrhosis of the liver, large ascites which has been recurrently tapped, came into hospital with dark stool and severe anemia. The patient is status post endoscopy. No source of bleeding has been seen. Clinically, patient is doing well. Blood pressure 127/68, respirations 16, pulse 75, temperature 99, saturation 97%. HEENT: Unremarkable. NECK: Supple. LUNGS: Good air entry bilaterally. HEART: Regular rate and rhythm. ABDOMEN: Soft. NEUROLOGICAL: Awake and alert. Labs reviewed. Medications reviewed. IMPRESSION: 1. Lower gastrointestinal bleed. 2. Acute blood loss anemia. 3. Cirrhosis of the liver. 4. History of alcohol consumption. 5. Portal hypertension. Plan and recommendation is as above. Continue supportive care. Follow clinical course closely. Continue Protonix. Will follow.
[2016-12-17 12:19] LABS: Anisocytosis Slight; CH 28.6; CHCM 30.3; HCT 23.1 % (39.0-53.0); HDW 3.35; HGB 7.3 gm/dL (13.0-17.5); Hypochromasia Marked; MCHC 31.6 g/dL (31.0-37.0); Macrocytosis Slight; Mean Platelet Volume 8.1; RBC 2.43 m/uL (4.30-5.90); RDW 17.2 % (11.5-15.5)
--- NOTE | 2016-12-17 12:46 | P.PN ---
Subjective 66-year-old being seen on rounds. Patient is sitting up states is tolerating a diet. Patient states he has not had a any reoccurrence of black colored stools for the last 24 hours . Patient denies any abdominal pain. Patient initial presentation to the emergency room with a symptomatic acute blood loss anemia hemoglobin 5.7. Patient did receive 2 units of packed red blood cells hemoglobin has been stable currently is 7.1. Patient is status post EGD done on the as part of a workup for the anemia suspect GI bleed. The postop findings gastritis consistent with portal gastropathy with no evidence of bleeding. There was no esophageal gastric per cc noted. No evidence of a mucosal tear. No bleeding. No biopsies were indicated. GI service indicates advanced diet monitor blood counts Patient currently is resting in bed denies any chest pain dizziness lightheadedness or shortness of breath Objective - Vital Signs Vital signs: Vital Signs Temp 98.9 F 12/17/16 07:00 Pulse 75 12/17/16 07:00 Resp 16 12/17/16 07:00 BP 127/68 12/17/16 07:00 Pulse Ox 96 12/17/16 07:00 Intake & Output 12/16/16 12/17/16 12/17/16 18:59 06:59 18:59 Intake Total 562.62 150 Output Total 2427 100 Balance -1864.38 50 Weight 84 kg Intake: IV 500 150 Sodium Chloride 0.9% 1, 500 150 000 ml @ 50 mls/hr IV . Q20H [facility] Rx#:[id number] Intake, IV Titration 62.62 Amount Octreotide 200 mcg In 12.62 Sodium Chloride 0.9% 100 ml @ 25 MCG/HR 12.62 mls/ hr IV .Q8H1M [facility] Rx#: [id number] Sodium Chloride 0.9% 1, 50 000 ml @ 50 mls/hr IV . Q20H [facility] Rx#:[id number] Output: Urine 2427 100 Other: Voiding Method Urinal Toilet Toilet # Voids 1 - Exam GENERAL APPEARANCE: 66-year-old male patient is alert, oriented 3, in no acute distress talkative cooperative sitting up in bed VITAL SIGNS: Reviewed HEENT: Head is normocephalic and atraumatic. Pupils are equal and reactive. The nares are patent. Oropharynx is clear without lesions. NECK: Supple without lymphadenopathy. Traches midline. HEART: S1, S2. Irregular monitor atrial fibrillation LUNGS: No crackles or wheezes are heard. Adequate air movement no shortness of breath noted ABDOMEN: Soft, slight tenderness, nondistended with good bowel sounds. No peritoneal signs. No palpable organomegaly or masses. States urinating no difficulty. Reports no nausea vomiting this been no hematemesis reports no recurrent black stools for the past 24 hours EXTREMITIES: Normal skin color and turgor. No cyanosis, rash, ulceration, clubbing or edema. Radial pedal pulses are 2/4 bilaterally. NEUROLOGICAL: No focal deficits. Strength and sensation are grossly intact. - Labs CBC & Chem 7: 12/17/16 11:06 12/17/16 03:52 Labs: Abnormal Lab Results - Last 24 Hours (Table) 12/16/16 12/16/16 12/17/16 Range/Units 16:05 22:24 03:52 RBC 2.59 L 2.46 L 2.53 L (4.30-5.90) m/uL Hgb 7.6 L 7.3 L 7.3 L (13.0-17.5) gm/dL Hct 24.9 L 23.1 L 24.5 L (39.0-53.0) % MCHC 30.5 L 29.6 L (31.0-37.0) g/dL RDW 17.0 H 16.9 H 17.0 H (11.5-15.5) % Lymphocytes # 0.8 L (1.0-4.8) k/uL Chloride (98-107) mmol/L Carbon Dioxide (22-30) mmol/L BUN (9-20) mg/dL Creatinine (0.66-1.25) mg/dL Glucose (74-99) mg/dL Calcium (8.4-10.2) mg/dL 12/17/16 12/17/16 Range/Units 03:52 11:06 RBC 2.43 L (4.30-5.90) m/uL Hgb 7.3 L (13.0-17.5) gm/dL Hct 23.1 L (39.0-53.0) % MCHC (31.0-37.0) g/dL RDW 17.2 H (11.5-15.5) % Lymphocytes # (1.0-4.8) k/uL Chloride 114 H (98-107) mmol/L Carbon Dioxide 17 L (22-30) mmol/L BUN 46 H (9-20) mg/dL Creatinine 1.40 H (0.66-1.25) mg/dL Glucose 100 H (74-99) mg/dL Calcium 7.7 L (8.4-10.2) mg/dL Microbiology - Last 24 Hours (Table) 12/15/16 23:30 Urine Culture - Preliminary Urine,Clean Catch Assessment and Plan Plan: Impression Present on admission symptomatic acute blood loss anemia hemoglobin 5.7 with black tarry stools suspect due to to a GI bleed Chronic atrial fibrillation controlled ventricular response not an anticoagulation candidate due to esophageal varices and frequent falls History of chronic alcoholism greater than 40 years in remission last drink May 2016 per patient report Chronic thrombocytopenia Chronic ascites due to alcoholic cirrhosis with palliative paracentesis Echocardiogram January 2016 left ventricular systolic function moderately impaired EF 40-45% Chronic congestive heart failure systolic dysfunction compensated Mild protein calorie malnutrition suspect due to poor caloric intake Physical debility suspect due to chronic illness A prior MRI of the brain June 2016 chronic small vessel ischemic changes suggest vascular dementia Present on admission acute GI bleed suspect upper with acute blood loss anemia melena with hemoglobin 5.7 necessitating 2 units of packed red blood cells to be infused per peripheral vein Ascites due to alcoholic cirrhosis Cirrhosis of the liver with portal hypertension with reoccurring large ascites requiring palliative large-volume paracentesis to be done every 10- 14 days COPD stable no evidence of an exacerbation A remote history of tobacco abuse Chest x-ray suggest atelectasis no acute process noted Plan Continue Aldactone 100 mg daily Monitor hemoglobin attempt keep greater than a 7.5 Further recommendations pending will follow Resume home meds when appropriate Lopressor 25 twice a day with parameters Discuss with pulmonary service the need for antibiotics Repeat labs in the morning possible discharge in the next 24 hours The above dictated assessment and findings were discussed with dr fleming . Impression and the plan of care have been dictated as directed. Maggie Hernandez nurse practitioner acting as a scribe for dr fleming
[2016-12-17] MEDS: SODIUM FERRIC GLUCONAT-SUCROSE 125 MG in SODIUM CHLORIDE 0.9% 100 ML IVPB SCH (16:37)
[2016-12-17] MEDS: PANTOPRAZOLE 40 MG TABLET PO SCH (16:46)
[2016-12-17 18:27] LABS: Anisocytosis Slight; CH 28.5; CHCM 30.3; HCT 23.3 % (39.0-53.0); HDW 3.31; HGB 7.3 gm/dL (13.0-17.5); Hypochromasia Marked; MCH 29.8 pg (25.0-35.0); MCHC 31.4 g/dL (31.0-37.0); MCV 94.8 fL (80.0-100.0); Mean Platelet Volume 8.5; RBC 2.46 m/uL (4.30-5.90); RDW 16.9 % (11.5-15.5)
[2016-12-17] MEDS: ZOLPIDEM 5 MG TAB PO PRN (22:43)
[2016-12-18 06:01] LABS: Anisocytosis Slight; Basophils % (A) 0 %; CH 28.9; CHCM 30.9; Eosinophils # (A) 0.2 k/uL (0-0.7); Eosinophils % (A) 4 %; HCT 23.8 % (39.0-53.0); HDW 3.32; HGB 7.3 gm/dL (13.0-17.5); Hypochromasia Moderate; Luc # (Auto) 0.12; Luc % (Auto) 2; Lymphocytes # (A) 0.8 k/uL (1.0-4.8); Lymphocytes % (A) 17 %; MCHC 30.9 g/dL (31.0-37.0); MCV 94.1 fL (80.0-100.0); Macrocytosis Slight; Mean Platelet Volume 8.8; Monocytes # (A) 0.5 k/uL (0-1.0); Monocytes % (A) 10 %; Neutrophils # (A) 3.2 k/uL (1.3-7.7); Neutrophils % (A) 66 %; RBC 2.53 m/uL (4.30-5.90); RDW 17.5 % (11.5-15.5); WBC 4.8 k/uL (3.8-10.6); WBC (Perox) 5.04
[2016-12-18 06:26] LABS: Anion Gap 9 mmol/L; Blood Urea Nitrogen 38 mg/dL (9-20); Calcium 7.9 mg/dL (8.4-10.2); Carbon Dioxide 17 mmol/L (22-30); Chloride 113 mmol/L (98-107); Glucose 103 mg/dL (74-99); Magnesium 1.7 mg/dL (1.6-2.3); Non-African American GFR(MDRD) 50 (>60 ml/min/1.73 sqM); Phosphorous 3.4 mg/dL (2.5-4.5); Potassium 4.3 mmol/L (3.5-5.1); Sodium 139 mmol/L (137-145)
[2016-12-18] MEDS: PANTOPRAZOLE 40 MG TABLET PO SCH ×2 (06:39→16:29)
[2016-12-18] MEDS: SPIRONOLACTONE 25 MG TAB PO SCH (08:39)
[2016-12-18] MEDS: FUROSEMIDE 40 MG TAB PO SCH (08:39)
[2016-12-18] MEDS: METOPROLOL TARTRATE 25 MG TAB PO SCH ×2 (08:39→20:36)
[2016-12-18] MEDS: MUPIROCIN 2% OINT 22 GM TUBE TOPICAL SCH ×3 (08:39→21:46)
[2016-12-18] MEDS: SODIUM FERRIC GLUCONAT-SUCROSE 125 MG in SODIUM CHLORIDE 0.9% 100 ML IVPB SCH (08:41)
[2016-12-18] MEDS: IPRATROPIUM-ALBUTEROL 3 ML NEB INHALATION SCH ×4 (08:48→20:45)
--- NOTE | 2016-12-18 09:45 | PN ---
Tamir Garcia who is a 66-year-old male, seen, evaluated and examined. Patient has been admitted to hospital with GI bleed. Clinically, patient is doing well, is status post endoscopy. Hemodynamic status is stable. Last set of vitals include blood pressure 120/70, respiratory rate 18, pulse 67, temperature 97, saturation 98%. HEENT: Unremarkable. NECK: Supple. LUNGS: Good air entry bilaterally. HEART: Regular rate and rhythm, S1 and S2 audible. Abdomen is soft. No rebound or rigidity. EXTREMITIES: +1 peripheral pulses. NEUROLOGICAL EXAMINATION: Otherwise, awake and alert. IMPRESSION: 1. Portal hypertension. 2. Cirrhosis. 3. Gastrointestinal bleed. 4. Extensive history of smoking and nicotine use, likely chronic obstructive pulmonary disease. 5. History of recurrent pancreatitis. 6. Encephalopathy, overall stable at this point in time. PLAN AND RECOMMENDATIONS: As above. Continue supportive care. Increase activity as tolerated. The patient is stable from a pulmonary standpoint for discharge and follow up in outpatient setting.
[2016-12-18] MEDS: FOLIC ACID 1 MG TAB PO SCH (11:15)
[2016-12-18] MEDS: THIAMINE 100 MG TAB PO SCH (11:15)
[2016-12-18] MEDS: LEVOFLOXACIN 500 MG TAB PO SCH (11:15)
--- NOTE | 2016-12-18 12:54 | P.PN ---
Subjective 66-year-old male being seen on rounds this morning. Patient had an episode of an 18 beat run of nonsustained V. tach this morning asymptomatic magnesium level this morning was 1.7 replacement was given. Patient denied any chest pain shortness of breath or dizziness or lightheadedness. Hemoglobin 7.3 this morning there's been no further episodes. Patient had an echocardiogram January 2016 which showed an EF 40-45% moderately impaired with mild pulmonary hypertension Objective - Vital Signs Vital signs: Vital Signs Temp 97.1 F L 12/18/16 11:18 Pulse 65 12/18/16 11:18 Resp 18 12/18/16 11:18 BP 100/55 12/18/16 11:18 Pulse Ox 96 12/18/16 11:18 Intake & Output 12/17/16 12/18/16 12/18/16 18:59 06:59 18:59 Intake Total 850 600 240 Output Total 600 250 Balance 250 600 -10 Intake: IV 350 10 Sodium Chloride 0.9% 1, 350 10 000 ml @ 50 mls/hr IV . Q20H [facility] Rx#:[id number] Oral 500 590 240 Output: Urine 600 250 Other: Voiding Method Toilet Toilet Toilet Urinal Urinal Urinal # Voids 2 - Exam Physical exam 66-year-old male sitting up in bed talkative oriented to person and place. Denies any dizziness lightheadedness chest pain or shortness of breath Lungs essentially clear with adequate air movement Heart S1-S2 audible regular no murmur noted monitor maintaining sinus rhythm no ectopy noted Abdomen soft nontender no frequent stooling extremities no edema noted - Labs CBC & Chem 7: 12/18/16 05:34 12/18/16 05:34 Labs: Abnormal Lab Results - Last 24 Hours (Table) 12/17/16 12/18/16 12/18/16 Range/Units 16:26 05:34 05:34 RBC 2.46 L 2.53 L (4.30-5.90) m/uL Hgb 7.3 L 7.3 L (13.0-17.5) gm/dL Hct 23.3 L 23.8 L (39.0-53.0) % MCHC 30.9 L (31.0-37.0) g/dL RDW 16.9 H 17.5 H (11.5-15.5) % Lymphocytes # 0.8 L (1.0-4.8) k/uL Chloride 113 H (98-107) mmol/L Carbon Dioxide 17 L (22-30) mmol/L BUN 38 H (9-20) mg/dL Creatinine 1.40 H (0.66-1.25) mg/dL Glucose 103 H (74-99) mg/dL Calcium 7.9 L (8.4-10.2) mg/dL Microbiology - Last 24 Hours (Table) 12/15/16 23:30 Urine Culture - Final Urine,Clean Catch Assessment and Plan Plan: Impression Present on admission symptomatic acute blood loss anemia hemoglobin 5.7 with black tarry stools suspect due to to a GI bleed Chronic atrial fibrillation controlled ventricular response not an anticoagulation candidate due to esophageal varices and frequent falls History of chronic alcoholism greater than 40 years in remission last drink May 2016 per patient report Chronic thrombocytopenia Chronic ascites due to alcoholic cirrhosis with palliative paracentesis Echocardiogram January 2016 left ventricular systolic function moderately impaired EF 40-45% Chronic congestive heart failure systolic dysfunction compensated Mild protein calorie malnutrition suspect due to poor caloric intake Physical debility suspect due to chronic illness A prior MRI of the brain June 2016 chronic small vessel ischemic changes suggest vascular dementia Present on admission acute GI bleed suspect upper with acute blood loss anemia melena with hemoglobin 5.7 necessitating 2 units of packed red blood cells to be infused per peripheral vein Ascites due to alcoholic cirrhosis Cirrhosis of the liver with portal hypertension with reoccurring large ascites requiring palliative large-volume paracentesis to be done every 10- 14 days COPD stable no evidence of an exacerbation A remote history of tobacco abuse Chest x-ray suggest atelectasis no acute process noted Isolated episode of nonsustained V. tach 18 beats on December 18 Plan Continue Aldactone 100 mg daily Monitor hemoglobin attempt keep greater than a 7.5 Further recommendations pending will follow Resume home meds when appropriate Lopressor 25 twice a day with parameters Discuss with pulmonary service the need for antibiotics Await cardiology's input will repeat mag level The above dictated assessment and findings were discussed with dr fleming . Impression and the plan of care have been dictated as directed. Maggie Hernandez nurse practitioner acting as a scribe for dr fleming Time with Patient: Greater than 30
[2016-12-18] MEDS: MAGNESIUM OXIDE 400 MG TAB PO SCH ×3 (13:10→21:46)
--- NOTE | 2016-12-18 15:40 | P.CRDCN ---
<Sarah Kamara E - Last Filed: 12/18/16 15:30> History of Present Illness Consult date: 12/18/16 Requesting physician: Chucho Erickson Reason for Consult (text): V. tach Chief complaint: Low hemoglobin History of present illness: This is a 66-year-old gentleman with known history of ascites secondary to cirrhosis related to alcohol abuse. He has had several paracentesis in the past. Patient also has history of paroxysmal atrial fibrillation, congestive heart failure, COPD, hyperlipidemia, hypertension, pancreatitis, GI bleeding, esophageal varices, and anemia. He admits to drinking at least 1 pint to a quart of vodka every day, but states that he quit drinking in May of last year. patient was at his appointment for his paracentesis, they checked his blood and found that his hemoglobin was extremely low. Patient also has noted that he has had some black stools at home for the 2 days prior to admission here. Mild abdominal discomfort. Patient does take Aleve on a regular basis at home. Hemoglobin on admission here 5.7, 7.3 this morning. Potassium 4.3, BUN 38, creatinine 1.4. Magnesium level I.7. Patient did undergo an EGD which revealed gastritis consistent with portal gastropathy but no evidence of any acute bleeding. No esophageal or gastric varices noted. Cardiology consultation was requested because of a run of nonsustained ventricular tachycardia. His initial EKG on admission here showed atrial fibrillation with a controlled ventricular response. Patient was noted to have 2 separate runs of nonsustained ventricular tachycardia, magnesium was replaced. Past Medical History Past Medical History: Atrial Fibrillation, Asthma, Heart Failure, COPD, GERD/ Reflux, GI Bleed, Hyperlipidemia, Hypertension, Liver Disease, Skin Disorder Additional Past Medical History / Comment(s): pancreatitis, ascities due to alcoholic cirrhosis,rt inguinal hernia, alcoholism with DTs in past, cirrhosis with therapeutic paracentesis, esophageal varices, thrombocytopenia normocytic/ normochromic anemia, ascites,emphysema, bronchitis, black stools over weekend () History of Any Multi-Drug Resistant Organisms: None Reported Past Surgical History: Hernia Repair Additional Past Surgical History / Comment(s): EGD, laser esophageal varices surgery, multi paracentesis ,severed tendon lt thumb repaired; "ruptured navel Past Anesthesia/Blood Transfusion Reactions: Motion Sickness Past Psychological History: No Psychological Hx Reported Additional Psychological History / Comment(s): Pt states he lives alone in a mobile home. He states he is independent. He uses no assistive device. He drives. Patient has bed bugs in his home and have been seen on past admissions. Smoking Status: Current every day smoker Past Alcohol Use History: Heavy Additional Past Alcohol Use History / Comment(s): Pt states he started smoking in 1965, used to smoke 1.5 ppd(rolls own) down to 10-15 cig per day.. He states he was drinking a quart of vodka daily but quit cold turkey 10 days ago. 07/07/2016 pt states that he has quit drinking and smoking. 08/11 denies drinking. 9/ Past Drug Use History: Marijuana Additional Drug Use History / Comment(s): Pt states on occasion he will smoke marijuana but not regularly. 08/11 denies smoking - Past Family History Father Family Medical History: Coronary Artery Disease (CAD), CVA/TIA, Myocardial Infarction (MT) Additional Family Medical History / Comment(s): Father at 75 yrs. Mother Family Medical History: COPD Additional Family Medical History / Comment(s): Mother of bronchitis. She was 68yrs old. Medications and Allergies Home Medications Medication Instructions Recorded Confirmed Type Folic Acid 0.4 mg PO DAILY 03/04/16 12/16/16 History Thiamine [Vitamin B-1] 100 mg PO DAILY 07/07/16 12/16/16 History Naproxen Sodium [Aleve] 220 mg PO BID PRN 12/15/16 12/16/16 History Allergies Allergy/AdvReac Type Severity Reaction Status Date / Time Penicillins Allergy Rash/Hives Verified 12/15/16 21:24 Physical Exam Vitals: Vital Signs Temp Pulse Resp BP Pulse Ox 12/18/16 14:45 97 F L 58 L 18 104/52 97 12/18/16 11:18 97.1 F L 65 18 100/55 96 12/18/16 08:46 96.9 F L 67 18 121/72 98 12/18/16 06:39 97 F L 67 18 109/63 97 12/18/16 05:44 97.7 F 68 20 110/65 97 12/17/16 22:29 98.1 F 60 16 119/63 96 12/17/16 16:00 78 16 Intake and Output 12/18/16 12/18/16 12/18/16 06:59 14:59 22:59 Intake Total 10 540 Output Total 250 Balance 10 290 Intake: IV 10 Sodium Chloride 0.9% 1, 10 000 ml @ 50 mls/hr IV . Q20H [facility] Rx#:[id number] Intake, IV Titration 100 Amount Sodium Ferric Gluconat- 100 Sucrose 125 mg In Sodium Chloride 0.9% 100 ml @ 100 mls/hr IVPB DAILY [facility] Rx#:[id number] Oral 440 Output: Urine 250 Other: Voiding Method Toilet Toilet Toilet Urinal Urinal Urinal Results 12/18/16 05:34 12/18/16 05:34 CBC 12/17/16 12/18/16 Range/Units 16:26 05:34 WBC 5.0 4.8 (3.8-10.6) k/uL RBC 2.46 L 2.53 L (4.30-5.90) m/uL Hgb 7.3 L 7.3 L (13.0-17.5) gm/dL Hct 23.3 L 23.8 L (39.0-53.0) % Plt Count 164 168 (150-450) k/uL Comprehensive Metabolic Panel 12/18/16 Range/Units 05:34 Sodium 139 (137-145) mmol/L Potassium 4.3 (3.5-5.1) mmol/L Chloride 113 H (98-107) mmol/L Carbon Dioxide 17 L (22-30) mmol/L BUN 38 H (9-20) mg/dL Creatinine 1.40 H (0.66-1.25) mg/dL Glucose 103 H (74-99) mg/dL Calcium 7.9 L (8.4-10.2) mg/dL Current Medications Generic Name Dose Route Start Last Admin Trade Name Freq PRN Reason Stop Dose Admin Albuterol/Ipratropium 3 ml 12/15/16 22:59 Duoneb 0.5 Mg-3 Mg/3 Ml Soln INHALATION RT-Q2H PRN Shortness Of Breath Or Wheezing Albuterol/Ipratropium 3 ml 12/16/16 08:00 12/18/16 12:12 Duoneb 0.5 Mg-3 Mg/3 Ml Soln INHALATION Not Given RT-QID [facility] Folic Acid 1 mg 01/24/17 12:00 12/18/16 11:15 Folic Acid PO 1 mg DAILY@1200 [facility] Administration Furosemide 40 mg 12/17/16 09:00 12/18/16 08:39 Lasix PO 40 mg DAILY [facility] Administration Ferric Sodium Gluconate 125 mg 110 mls @ 100 mls/hr 12/17/16 15:15 12/18/16 08:41 / Sodium Chloride IVPB 100 mls/hr DAILY [facility] Administration Levofloxacin 500 mg 12/18/16 12:00 12/18/16 11:15 Levaquin PO 500 mg Q24H [facility] Administration Magnesium Oxide 400 mg 12/18/16 12:45 12/18/16 13:10 Mag-Ox PO 400 mg TID [facility] Administration Metoprolol Tartrate 25 mg 12/15/16 21:00 12/18/16 08:39 Lopressor PO 25 mg BID [facility] Administration Miscellaneous Information 1 each 12/15/16 22:59 Magnesium Per Protocol MISCELLANE DAILY PRN Per Protocol Protocol Miscellaneous Information 1 each 12/15/16 22:59 Phosphorus Per Protocol MISCELLANE DAILY PRN Per Protocol Protocol Miscellaneous Information 1 each 12/15/16 22:59 Potassium Per Protocol MISCELLANE DAILY PRN Per Protocol Protocol Mupirocin 1 applic 12/16/16 00:15 12/18/16 08:39 Bactroban Oint TOPICAL 1 applic TID [facility] Administration Naloxone HCl 0.2 mg 12/15/16 18:42 Narcan IV Q2M PRN Opioid Reversal Pantoprazole Sodium 40 mg 12/17/16 17:30 12/18/16 06:39 Protonix PO Not Given AC-BID [facility] Spironolactone 100 mg 12/17/16 09:00 12/18/16 08:39 Aldactone PO 100 mg DAILY [facility] Administration Thiamine HCl 100 mg 12/16/16 12:00 12/18/16 11:15 Vitamin B-1 PO 100 mg DAILY@1200 [facility] Administration Triamcinolone Acetonide 1 applic 12/16/16 00:01 12/17/16 12:06 Kenalog TOPICAL 1 applic QID PRN Administration Itching Zolpidem Tartrate 5 mg 12/17/16 21:59 12/17/16 22:43 Ambien PO 5 mg HS PRN Administration Insomnia Intake and Output 12/18/16 12/18/16 12/18/16 06:59 14:59 22:59 Intake Total 10 540 Output Total 250 Balance 10 290 Intake: IV 10 Sodium Chloride 0.9% 1, 10 000 ml @ 50 mls/hr IV . Q20H [facility] Rx#:[id number] Intake, IV Titration 100 Amount Sodium Ferric Gluconat- 100 Sucrose 125 mg In Sodium Chloride 0.9% 100 ml @ 100 mls/hr IVPB DAILY [facility] Rx#:[id number] Oral 440 Output: Urine 250 Other: Voiding Method Toilet Toilet Toilet Urinal Urinal Urinal 12/18/16 05:34 12/18/16 05:34 EKG Interpretations (text) EKG shows A. fib with a controlled ventricular response. Assessment and Plan Plan: Assessment and plan #1 acute GI bleed with a hemoglobin of 5.6., Could be secondary to use of Aleve. #2 coagulopathy #3 thrombocytopenia #4 ascites secondary to alcoholic cirrhosis #5 acute blood loss anemia #6 nonsustained ventricular tachycardia, patient's most recent echo performed in January of last year revealed an ejection fraction of 40-45%. His magnesium was also noted to be 1.7, replaced. #7 paroxysmal atrial fibrillation, not a candidate for anticoagulation because of GI bleeding. #8 nicotine dependence #9 hyperlipidemia #10 COPD #11 GERD Plan We will replace patient's magnesium. Obtain a repeat echocardiogram with Doppler study. Continue metoprolol tartrate 25 mg one tablet by mouth twice a day, if the patient's blood pressure improves we'll consider increasing the metoprolol tartrate. Further recommendations to follow. DNP note has been reviewed, I agree with a documented findings and plan of care. Patient was seen and examined. <Jimenez Hdez - Last Filed: 12/18/16 18:21> Physical Exam Vitals: Vital Signs Temp Pulse Resp BP Pulse Ox 12/18/16 14:45 97 F L 58 L 18 104/52 97 12/18/16 11:18 97.1 F L 65 18 100/55 96 12/18/16 08:46 96.9 F L 67 18 121/72 98 12/18/16 06:39 97 F L 67 18 109/63 97 12/18/16 05:44 97.7 F 68 20 110/65 97 12/17/16 22:29 98.1 F 60 16 119/63 96 Intake and Output 12/18/16 12/18/16 12/18/16 06:59 14:59 22:59 Intake Total 10 540 Output Total 250 250 Balance 10 290 -250 Intake: IV 10 Sodium Chloride 0.9% 1, 10 000 ml @ 50 mls/hr IV . Q20H [facility] Rx#:[id number] Intake, IV Titration 100 Amount Sodium Ferric Gluconat- 100 Sucrose 125 mg In Sodium Chloride 0.9% 100 ml @ 100 mls/hr IVPB DAILY [facility] Rx#:[id number] Oral 440 Output: Urine 250 250 Other: Voiding Method Toilet Toilet Toilet Urinal Urinal Urinal # Voids 2 Weight 84 kg Patient Weight 12/19/16 06:59 Weight 84 kg Results 12/18/16 05:34 12/18/16 05:34 CBC 12/17/16 12/18/16 Range/Units 16:26 05:34 WBC 5.0 4.8 (3.8-10.6) k/uL RBC 2.46 L 2.53 L (4.30-5.90) m/uL Hgb 7.3 L 7.3 L (13.0-17.5) gm/dL Hct 23.3 L 23.8 L (39.0-53.0) % Plt Count 164 168 (150-450) k/uL Comprehensive Metabolic Panel 12/18/16 Range/Units 05:34 Sodium 139 (137-145) mmol/L Potassium 4.3 (3.5-5.1) mmol/L Chloride 113 H (98-107) mmol/L Carbon Dioxide 17 L (22-30) mmol/L BUN 38 H (9-20) mg/dL Creatinine 1.40 H (0.66-1.25) mg/dL Glucose 103 H (74-99) mg/dL Calcium 7.9 L (8.4-10.2) mg/dL Current Medications Generic Name Dose Route Start Last Admin Trade Name Freq PRN Reason Stop Dose Admin Albuterol/Ipratropium 3 ml 12/15/16 22:59 Duoneb 0.5 Mg-3 Mg/3 Ml Soln INHALATION RT-Q2H PRN Shortness Of Breath Or Wheezing Albuterol/Ipratropium 3 ml 12/16/16 08:00 12/18/16 16:36 Duoneb 0.5 Mg-3 Mg/3 Ml Soln INHALATION Not Given RT-QID [facility] Folic Acid 1 mg 12/16/16 12:00 12/18/16 11:15 Folic Acid PO 1 mg DAILY@1200 [facility] Administration Furosemide 40 mg 12/17/16 09:00 12/18/16 08:39 Lasix PO 40 mg DAILY [facility] Administration Ferric Sodium Gluconate 125 mg 110 mls @ 100 mls/hr 12/17/16 15:15 12/18/16 08:41 / Sodium Chloride IVPB 100 mls/hr DAILY [facility] Administration Levofloxacin 500 mg 12/18/16 12:00 12/18/16 11:15 Levaquin PO 500 mg Q24H [facility] Administration Magnesium Oxide 400 mg 12/18/16 12:45 12/18/16 16:29 Mag-Ox PO 400 mg TID [facility] Administration Metoprolol Tartrate 25 mg 12/15/16 21:00 12/18/16 08:39 Lopressor PO 25 mg BID [facility] Administration Miscellaneous Information 1 each 12/15/16 22:59 Magnesium Per Protocol MISCELLANE DAILY PRN Per Protocol Protocol Miscellaneous Information 1 each 12/15/16 22:59 Phosphorus Per Protocol MISCELLANE DAILY PRN Per Protocol Protocol Miscellaneous Information 1 each 12/15/16 22:59 Potassium Per Protocol MISCELLANE DAILY PRN Per Protocol Protocol Mupirocin 1 applic 12/16/16 00:15 12/18/16 16:29 Bactroban Oint TOPICAL 1 applic TID [facility] Administration Naloxone HCl 0.2 mg 12/15/16 18:42 Narcan IV Q2M PRN Opioid Reversal Pantoprazole Sodium 40 mg 12/17/16 17:30 12/18/16 16:29 Protonix PO 40 mg AC-BID [facility] Administration Spironolactone 100 mg 12/17/16 09:00 12/18/16 08:39 Aldactone PO 100 mg DAILY [facility] Administration Thiamine HCl 100 mg 12/16/16 12:00 12/18/16 11:15 Vitamin B-1 PO 100 mg DAILY@1200 [facility] Administration Triamcinolone Acetonide 1 applic 12/16/16 00:01 12/17/16 12:06 Kenalog TOPICAL 1 applic QID PRN Administration Itching Zolpidem Tartrate 5 mg 12/17/16 21:59 12/17/16 22:43 Ambien PO 5 mg HS PRN Administration Insomnia Intake and Output 12/18/16 12/18/16 12/18/16 06:59 14:59 22:59 Intake Total 10 540 Output Total 250 250 Balance 10 290 -250 Intake: IV 10 Sodium Chloride 0.9% 1, 10 000 ml @ 50 mls/hr IV . Q20H [facility] Rx#:[id number] Intake, IV Titration 100 Amount Sodium Ferric Gluconat- 100 Sucrose 125 mg In Sodium Chloride 0.9% 100 ml @ 100 mls/hr IVPB DAILY [facility] Rx#:[id number] Oral 440 Output: Urine 250 250 Other: Voiding Method Toilet Toilet Toilet Urinal Urinal Urinal # Voids 2 Weight 84 kg Patient Weight 12/19/16 06:59 Weight 84 kg 12/18/16 05:34 12/18/16 05:34
[2016-12-18 20:35] VITALS: RESP 16
[2016-12-18] MEDS: TRIAMCINOLONE 0.1% CREAM 80 GM TUBE TOPICAL PRN (21:46)
[2016-12-18] MEDS: ZOLPIDEM 5 MG TAB PO PRN (21:51)
[2016-12-19] MEDS: PANTOPRAZOLE 40 MG TABLET PO SCH (06:36)
[2016-12-19 07:10] LABS: Anion Gap 9 mmol/L; Blood Urea Nitrogen 37 mg/dL (9-20); Calcium 7.9 mg/dL (8.4-10.2); Carbon Dioxide 18 mmol/L (22-30); Chloride 112 mmol/L (98-107); Glucose 90 mg/dL (74-99); Magnesium 1.5 mg/dL (1.6-2.3); Non-African American GFR(MDRD) 50 (>60 ml/min/1.73 sqM); Phosphorous 3.7 mg/dL (2.5-4.5); Potassium 4.5 mmol/L (3.5-5.1); Sodium 139 mmol/L (137-145)
[2016-12-19 07:13] LABS: Anisocytosis Slight; Basophils % (A) 0 %; CH 28.6; CHCM 30.2; Eosinophils # (A) 0.1 k/uL (0-0.7); Eosinophils % (A) 2 %; HDW 3.25; HGB 7.6 gm/dL (13.0-17.5); Hypochromasia Marked; Luc % (Auto) 3; Lymphocytes # (A) 1.1 k/uL (1.0-4.8); Lymphocytes % (A) 19 %; MCH 29.2 pg (25.0-35.0); MCHC 30.6 g/dL (31.0-37.0); MCV 95.4 fL (80.0-100.0); Macrocytosis Slight; Mean Platelet Volume 8.3; Monocytes # (A) 0.6 k/uL (0-1.0); Monocytes % (A) 9 %; Neutrophils % (A) 66 %; RBC 2.62 m/uL (4.30-5.90); RDW 17.6 % (11.5-15.5); WBC 6.1 k/uL (3.8-10.6); WBC (Perox) 6.56
[2016-12-19] MEDS: IPRATROPIUM-ALBUTEROL 3 ML NEB INHALATION SCH ×3 (08:02→15:28)
[2016-12-19] MEDS: SPIRONOLACTONE 25 MG TAB PO SCH (08:21)
[2016-12-19] MEDS: SODIUM FERRIC GLUCONAT-SUCROSE 125 MG in SODIUM CHLORIDE 0.9% 100 ML IVPB SCH (08:21)
[2016-12-19] MEDS: MAGNESIUM OXIDE 400 MG TAB PO SCH (08:22)
[2016-12-19] MEDS: MUPIROCIN 2% OINT 22 GM TUBE TOPICAL SCH (08:22)
[2016-12-19] MEDS: FUROSEMIDE 40 MG TAB PO SCH (08:22)
[2016-12-19] MEDS: METOPROLOL TARTRATE 25 MG TAB PO SCH (08:22)
--- NOTE | 2016-12-19 09:46 | ECHOF ---
Referral Reason:[facility] MEASUREMENTS -------- HEIGHT: 157.5 cm WEIGHT: 83.9 kg BP: 100/55 RVIDd: 3.3 cm (< 3.3) IVSd: 1.2 cm (0.6 - 1.1) LVIDd: 5.0 cm (3.9 - 5.3) LVPWd: 1.2 cm (0.6 - 1.1) IVSs: 1.6 cm LVIDs: 3.5 cm LVPWs: 1.5 cm LA Diam: 5.0 cm (2.7 - 3.8) LAESV Index (A-L): 47.95 ml/m Ao Diam: 4.1 cm (2.0 - 3.7) AV Cusp: 2.3 cm (1.5 - 2.6) LA Diam: 5.6 cm (2.7 - 3.8) MV EXCURSION: 24.295 mm (> 18.000) MV EF SLOPE: 86 mm/s (70 - 150) EPSS: 0.5 cm MV E Negro: 1.20 m/s MV DecT: 273 ms MV A Negro: 0.72 m/s MV E/A Ratio: 1.67 RAP: 5.00 mmHg RVSP: 46.81 mmHg FINDINGS -------- Sinus rhythm. This was a technically adequate study. There is mild concentric left ventricular hypertrophy. Overall left ventricular systolic function is normal with, an EF between 55 - 60 %. The right ventricle is normal in size. LA is severely dilated >40 ml/m2 The right atrial size is normal. There is mild aortic valve sclerosis. There is no evidence of aortic regurgitation. Mild mitral annular calcification present. Mild mitral regurgitation is present. Mild tricuspid regurgitation present. There is mild to moderate pulmonary hypertension. The right ventricular systolic pressure, as measured by Doppler, is 46.81mmHg. There is no pulmonic regurgitation present. The aortic root size is normal. There is no pericardial effusion. CONCLUSIONS -------- 1. There is mild concentric left ventricular hypertrophy. 2. Overall left ventricular systolic function is normal with, an EF between 55 - 60 %. 3. LA is severely dilated >40 ml/m2 4. There is mild aortic valve sclerosis. 5. Mild mitral annular calcification present. 6. Mild mitral regurgitation is present. 7. Mild tricuspid regurgitation present. 8. There is mild to moderate pulmonary hypertension. 9. The right ventricular systolic pressure, as measured by Doppler, is 46.81mmHg. MECHANICAL TECHNOLOGIST: Sumi Rose RDCS
[2016-12-19 10:22] LABS: Manual Review Performed
[2016-12-19 10:47] VITALS: PULSE 76; TEMP 97.1
--- NOTE | 2016-12-19 12:20 | P.DS ---
Providers Date of admission: 12/15/16 18:45 Expected date of discharge: 12/19/16 Attending physician: Chucho Fleming Consults: 12/15/16 18:48 Consult Physician Urgent Consulting Provider: Ludwin Correa Consult Reason/Comments: GI bleed/ICU mgmt Do you want consulting provider notified?: Yes 12/18/16 12:50 Consult Physician Urgent Consulting Provider: Jimenez Hdez Consult Reason/Comments: Episode nonsustained V. tach Do you want consulting provider notified?: Yes Primary care physician: White Hospital Course: This is a 66-year-old gentleman with known history of ascites secondary to cirrhosis related to alcohol abuse. He has had several paracentesis in the past. Patient also has history of paroxysmal atrial fibrillation, congestive heart failure, COPD, hyperlipidemia, hypertension, pancreatitis, GI bleeding, esophageal varices, and anemia. He admits to drinking at least 1 pint to a quart of vodka every day, but states that he quit drinking in May of last year. patient was at his appointment for his paracentesis, they checked his blood and found that his hemoglobin was extremely low. Patient also has noted that he has had some black stools at home for the 2 days prior to admission here. Mild abdominal discomfort. Patient does take Aleve on a regular basis at home. Hemoglobin on admission here 5.7, 7.3 this morning. Potassium 4.3, BUN 38, creatinine 1.4. Magnesium level I.7. Patient did undergo an EGD which revealed gastritis consistent with portal gastropathy but no evidence of any acute bleeding. No esophageal or gastric varices noted. Cardiology consultation was requested because of a run of nonsustained ventricular tachycardia. His initial EKG on admission here showed atrial fibrillation with a controlled ventricular response. Patient was noted to have 2 separate runs of nonsustained ventricular tachycardia, magnesium was replaced. Patient had an echocardiogram done this admission. It showed left ventricular systolic function normal with an EF between 55 and 60%. Mild to moderate pulmonary hypertension. There were no further episodes of nonsustained V. tach.. The hemoglobin on December 19 was stable at 7.6. It had been 7.3 for the past 72 hours. The admitting hemoglobin was 5.7. Patient did receive 2 units of packed red blood cells after checking post infusion the hemoglobin stabilized at 7.4 Patient was felt to be clinically stable and appropriate to proceed with a discharge. Patient does have a history of bed bug infestation. Patient states that he lives in a mobile home and he's been told he needs to call the number to take care of the bed bug infestation. Impression is charged Present on admission symptomatic acute blood loss anemia hemoglobin 5.7 with black tarry stools suspect due to to a GI bleed Chronic atrial fibrillation controlled ventricular response not an anticoagulation candidate due to esophageal varices and frequent falls History of chronic alcoholism greater than 40 years in remission last drink May 2016 per patient report Chronic thrombocytopenia Chronic ascites due to alcoholic cirrhosis with palliative paracentesis Echocardiogram January 2016 left ventricular systolic function moderately impaired EF 40-45% Chronic congestive heart failure systolic dysfunction compensated Mild protein calorie malnutrition suspect due to poor caloric intake Physical debility suspect due to chronic illness A prior MRI of the brain June 2016 chronic small vessel ischemic changes suggest vascular dementia Present on admission acute GI bleed suspect upper with acute blood loss anemia melena with hemoglobin 5.7 necessitating 2 units of packed red blood cells to be infused per peripheral vein Ascites due to alcoholic cirrhosis Cirrhosis of the liver with portal hypertension with reoccurring large ascites requiring palliative large-volume paracentesis to be done every 10- 14 days COPD stable no evidence of an exacerbation A remote history of tobacco abuse Chest x-ray suggest atelectasis no acute process noted Isolated episode of nonsustained V. tach 18 beats on December 18 Acute bedbug infestation The above dictated assessment and findings were discussed with dr lonnie Calzada and the plan of care have been dictated as directed. Maggie Hernandez nurse practitioner acting as a scribe for dr fleming Patient Condition at Discharge: Fair Plan - Discharge Summary New Discharge Prescriptions: Furosemide [Lasix] 40 mg PO DAILY #30 tablet Magnesium Oxide [Mag-Ox] 400 mg PO TID #90 tab Omeprazole 20 mg PO DAILY #30 cap Spironolactone [Aldactone] 100 mg PO DAILY #120 tablet Discharge Medication List Folic Acid 0.4 mg PO DAILY 03/04/16 [History] Metoprolol Tartrate [Lopressor] 25 mg PO BID #60 tab 06/23/16 [Rx] Thiamine [Vitamin B-1] 100 mg PO DAILY 07/07/16 [History] Naproxen Sodium [Aleve] 220 mg PO BID PRN 12/15/16 [History] Furosemide [Lasix] 40 mg PO DAILY #30 tablet 12/17/16 [Rx] Omeprazole 20 mg PO DAILY #30 cap 12/17/16 [Rx] Spironolactone [Aldactone] 100 mg PO DAILY #120 tablet 12/17/16 [Rx] Magnesium Oxide [Mag-Ox] 400 mg PO TID #90 tab 12/19/16 [Rx] Mupirocin 2% Oint [Bactroban 2% Oint] 1 applic TOPICAL TID applic 12/19/16 [Rx] Spironolactone [Aldactone] 100 mg PO DAILY tab 12/19/16 [Rx] Follow up Appointment(s)/Referral(s): Claudio Avila MD [STAFF PHYSICIAN] - 1 Week Chucho Fleming MD [Primary Care Provider] - 1-2 days Ludwin Correa MD [STAFF PHYSICIAN] - 1 Week Activity/Diet/Wound Care/Special Instructions: No alcohol No ASA No NSAIDS Discharge Disposition: HOME SELF-CARE
[2016-12-19] MEDS: MAGNESIUM SULFATE-D5W PMX 1 GM in DEXTROSE/WATER 1 100ML.BAG IVPB SCH ×2 (12:48→14:00)
[2016-12-19] MEDS: LEVOFLOXACIN 500 MG TAB PO SCH (13:06)
[2016-12-19] MEDS: THIAMINE 100 MG TAB PO SCH (13:06)
[2016-12-19] MEDS: FOLIC ACID 1 MG TAB PO SCH (13:07)
[2016-12-19 13:26] VITALS: BP 130/74
--- NOTE | 2016-12-19 19:13 | PN ---
Tamir Garcia is a 66-year-old male, seen, evaluated, examined. Clinically, patient is doing well. Patient has no evidence of bleeding. Hemodynamically stable. Patient underwent large volume paracentesis on the day of admission followed by endoscopy by GI. Clinically, patient is doing well. No obvious distress present. Hemodynamic status is stable. Last set of vitals include blood pressure is 130/74, respirations 16. Heart rate 90, temperature 98. HEENT: Unremarkable. NECK: Supple. LUNGS: Fair air entry bilaterally. HEART: Regular rate and rhythm. S1 and S2 audible. ABDOMEN: Soft. No rebound or rigidity. EXTREMITIES: +1 peripheral pulses. NEUROLOGICAL EXAMINATION: Otherwise, awake and alert. IMPRESSION: 1. Cirrhosis of the liver. 2. Portal hypertension. 3. Gastrointestinal bleed transient in nature and may be related to esophageal varices, but; however, EGD failed to reveal any significant bleeding area. Hemoglobin has been stable. 4. Encephalopathy, altered mental status, resolved and improved now. 5. History of recurrent pancreatitis. 6. History of recurrent ascites requiring large volume paracentesis every 10 to 12 days. Overall patient can be discharged home. Follow up in outpatient setting as needed.
== END 2016-12-19 15:39 | disposition home or self-care (01) | DRG 377 ==
LOC: EC 15:54 → 6ICU 18:45 → 5MS5E 12-16 20:54 → 6SEL 12-18 06:24
PROVIDERS: ADMIT Family Medicine; ATTEND Family Medicine
PROC: 30233N1 Transfusion of Nonautologous Red Blood Cells into Peripheral Vein, Percutaneous Approach (ICD-10-PCS; 2016-12-15)
PROC: 0DJ08ZZ Inspection of Upper Intestinal Tract, Via Natural or Artificial Opening Endoscopic (ICD-10-PCS; principal; 2016-12-16 09:35)
DX: K92.2 Gastrointestinal hemorrhage, unspecified (principal); G93.40 Encephalopathy, unspecified; I47.2 Ventricular tachycardia; D68.9 Coagulation defect, unspecified; K76.6 Portal hypertension; I11.0 Hypertensive heart disease with heart failure; E44.1 Mild protein-calorie malnutrition; I50.22 Chronic systolic (congestive) heart failure; I48.0 Paroxysmal atrial fibrillation; B88.8 Other specified infestations; D62 Acute posthemorrhagic anemia; K86.1 Other chronic pancreatitis; J98.11 Atelectasis; J44.9 Chronic obstructive pulmonary disease, unspecified; I27.2 Other secondary pulmonary hypertension; K70.31 Alcoholic cirrhosis of liver with ascites; K21.9 Gastro-esophageal reflux disease without esophagitis; I48.2 Chronic atrial fibrillation; K29.70 Gastritis, unspecified, without bleeding; K31.89 Other diseases of stomach and duodenum; T39.315A Adverse effect of propionic acid derivatives, initial encounter; J45.909 Unspecified asthma, uncomplicated; F10.20 Alcohol dependence, uncomplicated; D69.6 Thrombocytopenia, unspecified; E78.5 Hyperlipidemia, unspecified; F01.50 Vascular dementia, unspecified severity, without behavioral disturbance, psychotic disturbance, mood disturbance, and anxiety; I67.9 Cerebrovascular disease, unspecified; R53.81 Other malaise; L29.9 Pruritus, unspecified; K64.4 Residual hemorrhoidal skin tags; F17.210 Nicotine dependence, cigarettes, uncomplicated; R29.6 Repeated falls; F12.90 Cannabis use, unspecified, uncomplicated; Z79.1 Long term (current) use of non-steroidal anti-inflammatories (NSAID); Z79.899 Other long term (current) drug therapy; Z91.81 History of falling; Z68.22 Body mass index [BMI] 22.0-22.9, adult; Z71.41 Alcohol abuse counseling and surveillance of alcoholic; Z88.0 Allergy status to penicillin; Z82.5 Family history of asthma and other chronic lower respiratory diseases; Z82.49 Family history of ischemic heart disease and other diseases of the circulatory system; Z86.19 Personal history of other infectious and parasitic diseases; Z87.09 Personal history of other diseases of the respiratory system; Z87.19 Personal history of other diseases of the digestive system; Z82.3 Family history of stroke; Y90.0 Blood alcohol level of less than 20 mg/100 ml
CPT/HCPCS: 36415; 36430; 43235; 49083; 71010; 80048; 80053; 80061; 80306; 80320; 81003; 82105; 82140; 82272; 83735; 84100; 85025; 85027; 85610; 85730; 86850; 86900; 86901; 86920; 87086; 93005; 93306; 94640; 96365; 96366; 99153; 99285

== ENCOUNTER → 2017-08-13 | Outpatient (CLI) | payer MEDICARE ==
--- NOTE | 2017-08-13 10:52 | XR ---
EXAM TYPE: LUMBAR SPINE X RAY SERIES COMPARISON: NONE HISTORY: Back pain TECHNIQUE: 3 views are submitted. FINDINGS: Hypertrophic change and degenerative disc disease noted. Most marked findings at L4-5 and L5-S1. Vasc ular calcification seen. The left upper quadrant are 2 punctate calcifications which could be related kidney. IMPRESSION: 1. Multilevel degenerative disc disease with most marked changes at L4-5 and L5-S1. 2. Possible tiny left renal calculi.
--- NOTE | 2017-08-13 10:53 | XR ---
EXAMINATION TYPE: XR pelvis AP view DATE OF EXAM: 08/13/2017 COMPARISON: NONE HISTORY: Pain The osseous structures are intact and the joint spaces are preserved. No acute fracture is seen. Vi sualized bowel gas pattern is nonspecific. Vascular calcifications noted. Arthropathy of the hips noted. Nonspherical morphology of the femoral head can be seen with femoral a cetabular impingement. IMPRESSION: 1. Hip arthropathy correlate for femoral acetabular impingement.
== END | disposition home or self-care (01) ==
LOC: RADXRMAIN 10:28
PROVIDERS: ATTEND Family Medicine
DX: M51.37 Other intervertebral disc degeneration, lumbosacral region (principal); M12.859 Other specific arthropathies, not elsewhere classified, unspecified hip
CPT/HCPCS: 72100; 72170

== ENCOUNTER → 2017-08-13 | Outpatient (CLI) | payer MEDICARE | END | disposition home or self-care (01) | LOC: PTMAIN 08:10 | PROVIDERS: ATTEND Otolaryngology | DX: K21.9 Gastro-esophageal reflux disease without esophagitis (principal); R07.0 Pain in throat | CPT/HCPCS: 31579; 72100; 72170 ==

== ENCOUNTER → 2017-08-19 | Outpatient (CLI) | payer MEDICARE ==
[2017-08-19 12:11] LABS: Anisocytosis Slight; CH 27.8; CHCM 30.8; HCT 34.9 % (39.0-53.0); HDW 2.32; HGB 11.3 gm/dL (13.0-17.5); Hypochromasia Slight; MCH 29.4 pg (25.0-35.0); MCHC 32.4 g/dL (31.0-37.0); MCV 90.8 fL (80.0-100.0); Mean Platelet Volume 7.4; RBC 3.85 m/uL (4.30-5.90); RDW 17.1 % (11.5-15.5); WBC 5.1 k/uL (3.8-10.6)
== END | disposition home or self-care (01) ==
LOC: LABPAT 10:58
PROVIDERS: ATTEND Otolaryngology
DX: Z01.810 Encounter for preprocedural cardiovascular examination (principal); Z01.812 Encounter for preprocedural laboratory examination; I10 Essential (primary) hypertension
CPT/HCPCS: 85027; 93005

== ENCOUNTER 2017-09-07 08:22 | Day surgery (SDC) | payer MEDICARE ==
[2017-09-03 11:40] VITALS: BMI 22.4
--- NOTE | 2017-09-07 07:14 | HP ---
HISTORY AND PHYSICAL CHIEF COMPLAINT: Chronic laryngitis with laryngeal lesion. HISTORY OF THE PRESENT ILLNESS: This patient is a 67-year-old male, who was recently seen in my office complaining of having intermittent laryngitis and intermittent soreness on the left side of his throat which have been going on for approximately 1 year. The patient denied any dysphagia or any referred otalgia. He did admit to an occasional cough and excessive mucus production, mainly in the morning. The patient smokes approximately 1 pack to 1-1/2 packs of cigarettes per day and he was advised that he should stop smoking for obvious health reasons. At the time that he was seen in my office, clinical examination of the oropharynx including an indirect laryngoscopy revealed a suspicious lesion along the left true vocal cord and the left false vocal cord. Because of his history of heavy smoking, it was recommended that he undergo a suspension microlaryngoscopy with biopsy of these lesions and possible CO2 laser vaporization under general anesthesia. PAST MEDICAL HISTORY: Reveals that he has an allergy to PENICILLIN. He is not currently on any medications. He has no history of asthma, diabetes mellitus, or hypertension. PREVIOUS SURGERIES: Include laparoscopy, repair of traumatic injury to his left hand and a colonoscopy. REVIEW OF SYSTEMS: Completely unremarkable. PHYSICAL EXAMINATION: This patient is a 67-year-old male, who was alert and cooperative. HEENT EXAMINATION: Patient is normocephalic, tympanic membranes are normal. Middle ear spaces are free of any fluid or infection. Pupils equal, round, and reactive to light and accommodation. Extraocular movements within normal limits. Intranasal examination reveals moderate to severe septal deviation with compensatory hypertrophy of the inferior turbinates and a slight amount of clear mucus on the mucous membranes and draining down the posterior pharynx. Examination of the oropharynx is unremarkable. Examination of the hypopharynx and larynx is as described above in the history of the present illness. It will not be repeated here. Palpation of the neck, cranial nerves 2 through 12 and the remainder of the head and neck exam are all within normal limits. Chest, cardiovascular, lungs adams are clear to percussion and auscultation. The patient is in regular sinus rhythm, S1, S2 are present without evidence of any murmurs S3s or S4. Peripheral pulses are bilaterally symmetrical and within normal limits. Abdomen, there is no evidence of any masses, megaly, or tenderness. The abdomen is soft. Skin is unremarkable. Musculoskeletal and neurological are within normal limits. The rectal exam is deferred at this time because the patient has this done on a regular basis at his family physician's office. The remainder of the physical exam is essentially unremarkable. IMPRESSION: Chronic laryngitis with laryngeal lesion of the left true vocal cord and left false vocal cord. PLAN: The patient is scheduled to undergo a suspension microlaryngoscopy with biopsy of the left true vocal cord and left false vocal cord and possible CO2 laser of the larynx under general anesthesia. Attention RNs in the pre-surgical area: I have not ordered any pre-surgical prophylactic antibiotics for this patient. If the Pharmacy Department sends any pre- surgical prophylactic antibiotics to the pre-surgical department for this patient, they should be returned to the Pharmacy Department and that order should be cancelled. Make sure that the patient's account is credited appropriately. The only medications that I have ordered presurgically is Ofirmev 1000 mg IV to be given to the patient once an intravenous line has been established. I have discussed the risks, benefits and alternative therapies for the above-mentioned procedure and for both sedation/analgesia as well as necessary blood product administration, if indicated, as they pertain to this patient. The patient has indicated his or her understanding and acceptance of the risks and procedures discussed. MMODL / IJN: [id number] /
[~2017-09-07 08:22] MED LIST: DEXAMETHASONE SOD PHOSPHATE 10 MG/ML 1 ML VIAL IV ONE; HYDROmorphone 0.5 MG/0.5 ML SYRINGE IVP PRN; LACTATED RINGERS 1,000 ML IV SCH; LIDOCAINE 1% 20 ML VIAL (10MG/ML) FOR IV START INTRADERMA PRN; ONDANSETRON 4 MG/2 ML VIAL IVP ONE; Pre Op ABX Message 1 EACH MISC MISCELLANE ONE; SCOPOLAMINE 1.5MG/72HR PATCH TRANSDERM ONE
[2017-09-07] MEDS ORDERED: ACETAMINOPHEN IV (For NPO) 1,000 MG in EMPTY BAG 1 BAG IVPB ONE (09:45)
[2017-09-07] MEDS ORDERED: PHENYLEPHRINE-0.9% NACL SYG 1 MG/10 ML SYRINGE ONE (10:16)
[2017-09-07] MEDS ORDERED: SUCCINYLCHOLINE CHLORIDE 100 MG/5 ML SYR IV ONE (10:16)
[2017-09-07] MEDS ORDERED: GLYCOPYRROLATE 0.2 MG/ML 2 ML VIAL ONE (10:16)
[2017-09-07] MEDS ORDERED: PROPOFOL 10 MG/ML 20 ML VIAL IV ONE (10:16)
[2017-09-07] MEDS ORDERED: DEXAMETHASONE SOD PHOS (MDV) 100 MG/10 ML VIAL ONE (10:16)
[2017-09-07] MEDS ORDERED: MIDAZOLAM 2 MG/2 ML VIAL ONE (10:16)
[2017-09-07] MEDS ORDERED: fentaNYL (PF) 50 MCG/ML 2 ML AMP ONE (10:16)
[2017-09-07 11:27] VITALS: TEMP 98
[2017-09-07 12:42] VITALS: RESP 18
[2017-09-07 12:49] VITALS: BP 154/86; PULSE 61
--- NOTE | 2017-09-07 16:17 | OP ---
OPERATIVE REPORT DATE OF SURGERY: 09/07/2017. CHIEF COMPLAINT: Chronic laryngitis with lesion on the left true vocal cord. PREOPERATIVE DIAGNOSIS: Chronic laryngitis with lesion of the left true vocal cord. POSTOPERATIVE DIAGNOSIS: Chronic laryngitis with lesion of the left true vocal cord. Final pathology is pending. ANESTHESIA: General anesthesia. OPERATIVE PROCEDURE: Suspension microlaryngoscopy with biopsy of lesion of left true vocal cord and CO2 laser vaporization of lesion of left true vocal cord. SURGEON: Dr. Hopkins. COMPLICATIONS: None. OPERATIVE PROCEDURE: The patient was placed on operating table in supine position and after uneventful induction and endotracheal intubation, satisfactory general anesthesia was obtained. Next the patient was draped in usual customary fashion. Following this, the laryngoscope was introduced into the oropharynx in the usual manner. After positioning the mouth guard, and the entire hypopharynx including the right and left piriform sinuses, base of tongue and vallecula were inspected for any suspicious lesions and none were found. Next the tip of the laryngoscope was placed into the laryngeal introitus. An inspection of the left true vocal cord revealed the patient had an irregular lesion along the left true vocal cord. Next the [facility] apparatus was attached to the handle of the laryngoscope and the operating Zeiss operating microscope was brought into position. On the magnified visualization multiple biopsies of the lesion of the left true vocal cord which appears to be white and plaquish like were taken using a pair of upbiting microlaryngeal forceps. Specimens were placed in formalin for permanent section. Closer inspection of the laryngeal ventricle and of the false cord did not reveal any evidence of any suspicious lesions. There was a question whether there was a possible lesion of the false cords, but none was actually found on close inspection, and under magnification. Next the CO2 laser was used to vaporize any remaining portions of the lesion along the entire length of the left true vocal cord up to the area of the anterior commissure. The patient was given 10 mg of Decadron intravenously during the surgery to prevent any postoperative laryngeal edema. Inspection of the right cord, right ventricle, right false vocal cord did not reveal any suspicious lesions. The entire epiglottis both the laryngeal and lingual side was inspected and again no suspicious lesions were found. Finally the arytenoids were inspected and again these appear to be normal as did the posterior cricoid area. At this point, the procedure was terminated. There were no intraoperative complications. Patient tolerated procedure well and was returned to the recovery room in satisfactory condition. Final pathology is pending. MMODL / IJN: [id number] /
== END 2017-09-07 13:21 | disposition home or self-care (01) ==
LOC: OR 08:22
PROVIDERS: ATTEND Otolaryngology
DX: J38.2 Nodules of vocal cords (principal); F17.210 Nicotine dependence, cigarettes, uncomplicated; J38.3 Other diseases of vocal cords; I11.0 Hypertensive heart disease with heart failure; I50.9 Heart failure, unspecified; E78.5 Hyperlipidemia, unspecified; I48.91 Unspecified atrial fibrillation; J44.9 Chronic obstructive pulmonary disease, unspecified; F03.90 Unspecified dementia, unspecified severity, without behavioral disturbance, psychotic disturbance, mood disturbance, and anxiety; K21.9 Gastro-esophageal reflux disease without esophagitis; Z79.2 Long term (current) use of antibiotics; Z79.891 Long term (current) use of opiate analgesic; Z88.0 Allergy status to penicillin
CPT/HCPCS: 88305; 31536; J2250; J1100 ×2; J3010; J0131; J2370; J0330; J2704

== ENCOUNTER → 2017-10-02 | Day surgery (SDC) | payer MEDICARE ==
[2017-09-30 15:31] VITALS: BMI 23.1
[~2017-10-02] MED LIST changes: +DEXAMETHASONE SOD PHOS (MDV) 100 MG/10 ML VIAL ONE; +GLYCOPYRROLATE 0.2 MG/ML 2 ML VIAL ONE; -HYDROmorphone 0.5 MG/0.5 ML SYRINGE IVP PRN; +HYDROmorphone 1 MG/ML 1 ML SYRINGE IVP PRN; -LACTATED RINGERS 1,000 ML IV SCH; -LIDOCAINE 1% 20 ML VIAL (10MG/ML) FOR IV START INTRADERMA PRN; +LIDOCAINE 1% INJ 10MG/ML (20 ML MDV) ONE; +MIDAZOLAM 2 MG/2 ML VIAL IV PRN; +MIDAZOLAM 2 MG/2 ML VIAL ONE; +PHENYLEPHRINE-0.9% NACL SYG 1 MG/10 ML SYRINGE ONE; +PROPOFOL 10 MG/ML 20 ML VIAL IV ONE; -SCOPOLAMINE 1.5MG/72HR PATCH TRANSDERM ONE; +SUCCINYLCHOLINE CHLORIDE 100 MG/5 ML SYR IV ONE; +fentaNYL (PF) 50 MCG/ML 2 ML AMP ONE
--- NOTE | 2017-10-02 10:09 | HP ---
HISTORY AND PHYSICAL CHIEF COMPLAINT: Chronic laryngitis and suspect lesion of the left piriform sinus. HISTORY OF PRESENT ILLNESS: This patient is a 67-year-old male who recently underwent a suspension microlaryngoscopy with biopsy of the left true vocal cord for possible malignancy. The biopsy was negative. The patient has complained of a chronic soreness in the left side of his throat and he is noted to be a heavy smoker. The patient has been advised to quit smoking for obvious health reasons. A CT scan was obtained of the patient's neck with contrast and this showed evidence of a possible lesion of the left hypopharynx/piriform sinus. It was recommended that the patient undergo a repeat suspension microlaryngoscopy with attention to this area under general anesthesia. PAST MEDICAL HISTORY: Reveals patient has an allergy to PENICILLIN. He is not currently on any medications. He has no history of asthma, diabetes mellitus or hypertension. The previous surgeries include a suspension microlaryngoscopy with biopsy of the left true vocal cord with CO2 laser, laparoscopy, repair of traumatic injury to the left hand and a colonoscopy. REVIEW OF SYSTEMS: Completely unremarkable. PHYSICAL EXAMINATION: This patient is a 67-year-old male who was alert and cooperative. HEENT EXAMINATION: Patient is normocephalic. Tympanic membranes normal. Middle ear spaces are free of any fluid or infection. Pupils equal, round, and react to light and accommodation. Extraocular movements are within normal limits. Intranasal examination reveals moderate to severe septal deviation, compensatory hypertrophy of the inferior turbinates. Examination of oropharynx, cranial nerves 2 through 12, palpation of the neck and the remainder of the head and neck exam are all within normal limits. CHEST, CARDIOVASCULAR: Both lung adams are clear to percussion and auscultation. Lung sounds are somewhat distant. The patient is in regular sinus rhythm. S1 and S2 are present without evidence of any murmurs, S3s or S4. Peripheral pulses are bilaterally symmetrical. ABDOMEN: There is no evidence of any masses, megaly, or tenderness. The abdomen is soft. Skin is unremarkable. Musculoskeletal and neurological are within normal limits. RECTAL EXAM: The rectal exam is deferred at this time because the patient has this done on a regular basis at his family physician's office. The remainder of physical exam is unremarkable. IMPRESSION: Suspect lesion of the left piriform sinus. PLAN: The patient is scheduled to undergo a suspension microlaryngoscopy with possible biopsy under general anesthesia in the a.m. ATTENTION RNS IN THE PRE-SURGICAL AREA: I have not ordered any pre-surgical prophylactic antibiotics for this patient. If the Pharmacy Department sends any pre- surgical prophylactic antibiotics to the pre-surgical area for this patient, that order should be cancelled, and the antibiotic should be returned to Pharmacy and make sure that the patient's account is credited appropriately. I have ordered for this patient to receive 1000 mg of Ofirmev IV to be given once an intravenous line has been established. I have discussed the risks, benefits and alternative therapies for the above-mentioned procedure and for both sedation/analgesia as well as necessary blood product administration, if indicated, as they pertain to this patient. The patient has indicated his or her understanding and acceptance of the risks and procedures discussed. MMSENA / KAYLEENN: [id number] /
[2017-10-02] MEDS: LACTATED RINGERS 1,000 ML IV SCH ×2 (11:11→12:17)
[2017-10-02] MEDS: ACETAMINOPHEN IV (For NPO) 1,000 MG in EMPTY BAG 1 BAG IVPB ONE ×2 (11:23→12:15)
[2017-10-02 13:20] VITALS: TEMP 97.4
[2017-10-02 13:50] VITALS: RESP 18
[2017-10-02 15:06] VITALS: BP 137/78; PULSE 62
--- NOTE | 2017-10-02 22:37 | OP ---
OPERATIVE REPORT PREOPERATIVE DIAGNOSIS: Left piriform sinus lesion. POSTOPERATIVE DIAGNOSIS: Left piriform sinus lesion, final pathology pending. ANESTHESIA: General. OPERATIVE PROCEDURE: Suspension microlaryngoscopy with biopsy of lesion of the left piriform sinus. SURGEON: Dr. Hopkins. COMPLICATIONS: None. ESTIMATED BLOOD LOSS: Zero. PROCEDURE: The patient was placed on operative table in a supine position. After uneventful induction endotracheal intubation, satisfactory general anesthesia was obtained. Next the laryngoscope was introduced into the patient's oropharynx and the entire hypopharynx including the right piriform sinus, vallecular, epiglottis, and base of tongue were inspected. Next, the laryngoscope was placed in the region of the laryngeal introitus and the Lewy apparatus was attached to the laryngoscope and the laryngoscope was suspended on the patient's chest. Next, using magnified visualization, inspection revealed no suspicious lesions of the larynx. It is to be noted the patient had previously undergone a biopsy of a benign lesion on the left true vocal cord several weeks ago. The laryngoscope was then adjusted such that it visualized the left piriform sinus. There appeared to be some irregularity of the mucosal tissue and therefore several biopsies of this area were taken using a pair of straight biting microlaryngeal forceps. The specimens were placed in formalin and sent to Pathology for permanent sectioning. The patient was given 10 mg of Decadron intraoperatively to reduce any laryngeal edema. At this point, the procedure was terminated. There were no intraoperative complications. Patient tolerated procedure well and was returned to the recovery room in satisfactory condition. MMODL / IJN: [id number] /
== END | disposition home or self-care (01) ==
LOC: OR 10:41
PROVIDERS: ATTEND Otolaryngology
DX: D00.08 Carcinoma in situ of pharynx (principal); F17.200 Nicotine dependence, unspecified, uncomplicated; Z88.0 Allergy status to penicillin; I10 Essential (primary) hypertension; K74.60 Unspecified cirrhosis of liver; I85.10 Secondary esophageal varices without bleeding; Z87.19 Personal history of other diseases of the digestive system; Z79.891 Long term (current) use of opiate analgesic
CPT/HCPCS: 88305; 31535; J2250; J1100 ×2; J2405; J2001; J3010; J0131; J2370; J0330; J2704

== ENCOUNTER → 2017-12-17 | Outpatient (CLI) | payer MEDICARE ==
--- NOTE | 2017-12-18 09:08 | US ---
EXAMINATION TYPE: US groin RT DATE OF EXAM: 12/17/2017 COMPARISON: PET/CT October 24, 2017 CLINICAL HISTORY: N50.89 Small cyst on spermatic cord. Right groin palpable mass Right inguinal canal areas of concern: palpable #1: 1.9 x 1.4 x 2.1cm complex vascular mass, palpable #2: 2.4 x 1.1 x 1.8cm complex vascular mass inferior to palpable #1 Scanning of area of clinical concern in right inguinal canal shows complex solid and cystic vascular mass as detailed above. Recent PET/CT shows fluid and soft tissue density with some foci of air, susp ect patient may have had recent surgery earlier this level as there is small right groin clot superio rly axial image 237. IMPRESSION: As above, etiology uncertain suspect recent right groin surgery. Findings could reflect residual inflammatory process or infection such as phlegmon. Clinical correlation is necessary.
== END | disposition home or self-care (01) ==
LOC: RADUSWWP 16:25
PROVIDERS: ATTEND Family Medicine
DX: N50.89 Other specified disorders of the male genital organs (principal)

== ENCOUNTER → 2018-01-28 | Outpatient (CLI) | payer MEDICARE ==
[2018-01-28 10:45] LABS: Blood Urea Nitrogen 23 mg/dL (9-20)
--- NOTE | 2018-01-28 11:29 | CT ---
EXAMINATION TYPE: CT soft tissue neck w con DATE OF EXAM: 01/28/2018 COMPARISON: 09/22/2017 HISTORY: Malignant neoplasm of hypopharynx, unspecified CT DLP: 590 mGycm CONTRAST: Patient injected with 100 mL of Omnipaque 300. TECHNIQUE: Axial images at 3 mm thick sections. Reconstructed images in the coronal plane and sagitt al plane are reviewed. FINDINGS: Limited CT sections are obtained the lung apices. The lung apices appear clear. CT neck: The torus tubarius and fossa of Rosenmuller are normal. Calibration Specialist spaces are normal. Para nasal sinuses and mastoid air cells are clear. Parotid glands appear normal and symmetrical. Submandibular glands, are normal. Parapharyngeal spac es are normal. No suspicious adenopathy is evident. Some nodularity at the level of vocal cords is not excluded. Series 3 image 55. This measures up to 1 .3 cm in transverse dimension falls vocal cord level and likely represents underlying neoplasm. Asymm etry within the posterior lateral left hypopharynx is present. This could be related to the patient's reported underlying hypopharynx neoplasm. Thyroid as visualized is normal. Scattered small lymph nodes are adjacent to the aortic arch. Enlarged lymphadenopathy within the supe rior mediastinum is not evident. Scoliosis within the cervical spine. Convexity is to the right. Degenerative disc changes are noted. IMPRESSIONS: 1. 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
== END | disposition home or self-care (01) ==
LOC: RADCTMAIN 09:43
PROVIDERS: ATTEND Radiology Radiation Oncology
DX: C13.9 Malignant neoplasm of hypopharynx, unspecified (principal); Z88.0 Allergy status to penicillin
CPT/HCPCS: 82565; 84520; 70491; 36415; Q9967

== ENCOUNTER 2018-02-15 09:22 | Day surgery (SDC) | payer MEDICARE ==
[2018-02-11 10:51] VITALS: BMI 23.3
--- NOTE | 2018-02-15 05:07 | HP ---
HISTORY AND PHYSICAL CHIEF COMPLAINT: Lesion of the left piriform sinus. 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 The patient is a heavy smoker and had been cautioned to stop smoking. He has not reduced his smoking since his original diagnosis. He was referred to [facility] for evaluation and it was felt by the radiologist that because the lesion was carcinoma in situ that the lesion could be followed and they also emphasized to the patient the importance of quitting smoking. Unfortunately, because the patient did not quit smoking, a repeat PET/CT scan revealed that the lesion in the left piriform sinus was enlarging. Therefore was recommended that a repeat biopsy and suspension microlaryngoscopy be performed. PAST MEDICAL HISTORY: Reveals the patient has an ALLERGY TO PENICILLIN. He is not currently on any medications. The patient used to be a heavy drinker and has history of cirrhosis of the liver. He states he used to drink at least a half a gallon of alcohol on a daily basis. He smokes 1/2 to a pack and a half of cigarettes per day. PREVIOUS SURGERIES: Include suspension microlaryngoscopy x2 with biopsy of the left true vocal cord and left piriform sinus, laparoscopy, and repair of traumatic injury to the left hand and also a colonoscopy. REVIEW OF SYSTEMS: Review of systems is completely noncontributory. PHYSICAL EXAMINATION: The patient is a 67-year-old male who is alert and cooperative. HEENT examination patient is normocephalic. Tympanic membranes are normal. Middle ear space is free of any fluid or infection. Pupils equal, round, reactive to light and accommodation. Extraocular movements within normal limits. Intranasal examination reveals moderate to severe septal deviation with compensatory hypertrophy of the inferior turbinates and a moderate amount of mucus on the mucous membranes and draining down the posterior pharynx. Examination of oropharynx including an indirect laryngoscopy reveals a suspicious lesions of the left piriform sinus. Palpation of the neck is negative for any masses or lymphadenopathy. Cranial nerves 2 through 12 and the remainder of the head and neck exam are within normal limits. Chest/cardiovascular: Both lung adams are clear to percussion and auscultation. The patient is in regular sinus rhythm. S1 and S2 are present without evidence of any murmurs S3s or S4s. Peripheral pulses are bilaterally symmetrical. ABDOMEN: There is no evidence the masses, megaly or tenderness. ABDOMEN: Soft. Skin is unremarkable. Musculoskeletal and neurological within normal limits. Rectal examination exam is deferred at this time because the patient has this done on a regular basis at his family physician's office. The remainder of the physical exam is essentially unremarkable. IMPRESSION: Lesion of the left piriform sinus, highly suspicious for growing malignancy. PLAN: The patient is scheduled undergo a suspension microlaryngoscopy with biopsy of lesion of the left piriform sinus under general anesthesia in a.m. Attention RNs in the pre-surgical area: I have not ordered any pre-surgical prophylactic antibiotics or any other medication for this patient. If the pharmacy department sends any pre-surgical prophylactic antibiotics for this patient, that order should be cancelled and the medication should be returned to the pharmacy department and make sure that the patient's account is credited appropriately. I have purposely not ordered any Ofirmev because the patient has a history of liver cirrhosis. I have discussed the risks, benefits and alternative therapies for the above-mentioned procedure and for both sedation/analgesia as well as necessary blood product administration, if indicated, as they pertain to this patient. The patient has indicated his or her understanding and acceptance of the risks and procedures discussed. MMODL / IJN: [id number] /
[~2018-02-15 09:22] MED LIST changes: -DEXAMETHASONE SOD PHOS (MDV) 100 MG/10 ML VIAL ONE; -DEXAMETHASONE SOD PHOSPHATE 10 MG/ML 1 ML VIAL IV ONE; -GLYCOPYRROLATE 0.2 MG/ML 2 ML VIAL ONE; -HYDROmorphone 1 MG/ML 1 ML SYRINGE IVP PRN; +LACTATED RINGERS 1,000 ML IV SCH; -LIDOCAINE 1% INJ 10MG/ML (20 ML MDV) ONE; -MIDAZOLAM 2 MG/2 ML VIAL IV PRN; -MIDAZOLAM 2 MG/2 ML VIAL ONE; +MORPHINE SULFATE 2 MG/ML SYRINGE IV PRN; -ONDANSETRON 4 MG/2 ML VIAL IVP ONE; -PHENYLEPHRINE-0.9% NACL SYG 1 MG/10 ML SYRINGE ONE; -PROPOFOL 10 MG/ML 20 ML VIAL IV ONE; -SUCCINYLCHOLINE CHLORIDE 100 MG/5 ML SYR IV ONE; -fentaNYL (PF) 50 MCG/ML 2 ML AMP ONE
[2018-02-15] MEDS ORDERED: ACETAMINOPHEN IV (For NPO) 1,000 MG in EMPTY BAG 1 BAG IVPB ONE (09:45)
[2018-02-15 09:50] VITALS: RESP 16
[2018-02-15] MEDS ORDERED: LIDOCAINE 1% 20 ML VIAL (10MG/ML) FOR IV START INTRADERMA ONE (10:04)
[2018-02-15] MEDS ORDERED: LIDOCAINE 1% INJ 10MG/ML (20 ML MDV) ONE (10:07)
[2018-02-15] MEDS ORDERED: DEXAMETHASONE SOD PHOS (MDV) 100 MG/10 ML VIAL ONE (10:07)
[2018-02-15] MEDS ORDERED: fentaNYL (PF) 50 MCG/ML 2 ML AMP ONE (10:07)
[2018-02-15] MEDS ORDERED: NEOSTIGMINE 1 MG/ML 10 ML VIAL ONE (10:07)
[2018-02-15] MEDS ORDERED: PHENYLEPHRINE-0.9% NACL SYG 1 MG/10 ML SYRINGE ONE (10:07)
[2018-02-15] MEDS ORDERED: PROPOFOL 10 MG/ML 20 ML VIAL IV ONE (10:07)
[2018-02-15] MEDS ORDERED: LABETALOL 5 MG/ML VIAL MDV ONE (10:07)
[2018-02-15] MEDS ORDERED: MIDAZOLAM 2 MG/2 ML VIAL ONE (10:07)
[2018-02-15] MEDS ORDERED: ONDANSETRON 4 MG/2 ML VIAL ONE (10:07)
[2018-02-15] MEDS ORDERED: SUCCINYLCHOLINE CHLORIDE 100 MG/5 ML SYR IV ONE (10:07)
[2018-02-15] MEDS ORDERED: GLYCOPYRROLATE 0.2 MG/ML 2 ML VIAL ONE (10:07)
[2018-02-15] MEDS ORDERED: ROCURONIUM BROMIDE 10 MG/ML 10 ML VIAL IV ONE (10:07)
[2018-02-15 11:13] VITALS: TEMP 97.3
[2018-02-15] MEDS ORDERED: diphenhydrAMINE 50 MG/ML 1 ML VIAL IVP ONE (11:36)
[2018-02-15 12:27] VITALS: BP 150/89; PULSE 77
--- NOTE | 2018-02-16 06:49 | OP ---
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 ANESTHESIA: General. OPERATIVE PROCEDURE: Suspension microlaryngoscopy with biopsy of mass of the left piriform sinus. OPERATING SURGEON: Berto Hopkins MD COMPLICATIONS: None. ESTIMATED BLOOD LOSS: Less than 5 mL. OPERATIVE PROCEDURE: The patient was placed on the operating table in supine position and after uneventful induction and endotracheal intubation satisfactory general anesthesia was obtained. Next the patient was draped in usual and customary fashion. Following this, the direct laryngoscope was introduced into the oropharynx and the entire hypopharynx including the base of tongue, vallecula, right piriform sinus were inspected and found to be free of any suspicious lesions. Next, the tip of the laryngoscope was placed at the laryngeal introitus and inspection did not reveal any suspicious lesions of the vocal cords. Next, the tip of the laryngoscope was placed in the left piriform sinus. Immediately one could see that there was a large polypoid-like mass which appeared to arise from the medial wall of the left piriform sinus. Next, following this the Lewy apparatus was attached to the handle of the laryngoscope and the laryngoscope was suspended on the patient's chest. Next, the Zeiss operating microscope was brought into position and under magnified visualization, this mass was examined. Light suctioning around the mass revealed it to be extremely friable and it bled quite easily, suggesting it was abnormal tissue. It is to be noted that with respect to the last examination and biopsy in this area, this mass appears to have increased in size by at least 30% or 40% if not by as much as 50%. Multiple biopsies, approximately 8, were obtained using a pair of large straight microlaryngeal forceps. The 8 specimens were placed in formalin and sent to pathology for permanent sectioning. The mass was biopsied in various areas so as to obtain an adequate sampling. Again, it appeared that the mass was arising from the medial wall of the left piriform sinus. Bleeding occurred with biopsy sampling and this was controlled by applying pressure with moist cottonoids. Because the patient was having some slight irregular arrhythmias during the procedure, it was elected not to use any adrenaline. After approximately 4 or 5 minutes, the bleeding was controlled and at this point, the procedure was terminated. Care was taken during this procedure to make sure that no injury to either the patient's teeth or his lips was incurred. Inspection of the patient's teeth and lips at the end of procedure was carried out by all members of the surgical team and everyone agreed that there was no lacerations, cuts, bruises, etc. At this point, the procedure was terminated. There were no intraoperative complications. The patient was given 10 mg of Decadron intraoperatively to reduce any postoperative laryngeal edema. The patient tolerated the procedure well and was returned to the recovery room in satisfactory condition. Final pathology is pending. MMODL / IJN: [id number] /
== END 2018-02-15 12:55 | disposition home or self-care (01) ==
LOC: OR 09:22
PROVIDERS: ATTEND Otolaryngology
DX: D00.08 Carcinoma in situ of pharynx (principal); F17.210 Nicotine dependence, cigarettes, uncomplicated; K74.60 Unspecified cirrhosis of liver; I10 Essential (primary) hypertension; K21.9 Gastro-esophageal reflux disease without esophagitis; Z79.2 Long term (current) use of antibiotics; Z79.891 Long term (current) use of opiate analgesic
CPT/HCPCS: 88305; 31536; J2250; J1200; J2710; J2405; J2001; J3010; J1100; J2370; J0330; J2704

== ENCOUNTER → 2018-02-20 | Outpatient (CLI) | payer MEDICARE ==
--- NOTE | 2018-02-22 07:16 | PE ---
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 Pat ient with pharyngeal biopsy on 02/15/2018. Patient denies any chemoradiation. TECHNIQUE: Following the intravenous administration of 10.56 mCi of F-18 FDG, and initial cone-down images of the head and neck are performed followed by imaging from the skull base to the midthigh. Images are reviewed on the computer in the coronal, axial, and sagittal planes. Reconstructed rotati ng images are created on independent workstation and reviewed on the computer. A localization and a ttenuation correction CT is performed in conjunction with the PET scan. Glucose level: 92 mg/dL CTDI: 2.16 / 3.95 mGy DLP: 644.99 / 398.10 mGy-cm COMPARISON: CT neck 01/28/2018 and PET/CT 10/24/2017 FINDINGS: PET: There is nodular thickening along the left aryepiglottic fold and left piriform sinus. This is better seen now measuring 1 cm. There is focal now moderate FDG uptake, max SUV 3.8 versus 2.4, previously. Javv-nf-bmtioomm FDG uptake is redemonstrated associated with severe hypertrophic left-sided cervical facet arthropathy. No cervical lymphadenopathy seen. Numerous small superior mediastinal and prevascular space lymph nodes are unchanged from 10/24/2017 an d show no discrete FDG uptake. Physiologic FDG uptake within the chest. Cirrhotic nodularity of the liver without any suspicious focal FDG uptake. Average liver SUV 2.0. Scattered small retroperitoneal lymph nodes are stable and show no discrete FDG uptake. Physiologic FDG uptake within the abdomen. Very limited assessment of the pelvis likely due to attenuation from the patient's hands at this leve l. Focal FDG uptake along the right forearm corresponds to the injection site. ATTENUATION CORRECTION CT: Visualized paranasal sinuses and mastoid air cells are clear. Atherosclerotic calcifications within the carotid bifurcations. Heart is upper limits of normal in size with trace anterior pericardial thickening/fluid. Coronary ve ssel calcifications are present and are a marker for coronary artery disease. Mild aneurysm ascendin g aorta 4.0 cm. Aneurysmal upper descending thoracic aorta at 3.8 cm. There is bovine configuration t o the aortic arch and mild apical scarring calcifications. Moderate bilateral gynecomastia. Stable stable strandy and hazy densities posterior right base probably representing scarring. No cons olidation or pleural effusion. There is mild diffuse bronchial wall thickening and mild emphysema Mild anasarca-type change is noted with resolution of previously seen mild abdominal ascites. Promine nt upper abdominal collateral vessels are again noted likely with splenorenal shunt and recanalized u mbilical vein. Moderate atherosclerotic calcifications abdominal aorta. Prominent artifacts from the patient's arms down by their side. No dilated small bowel, free fluid, or free air. Scattered mild stool burden and occasional descendin g colonic diverticulosis. The previous ascites extending through the right inguinal canal has resolved. No abnormal fluid colle ction in the pelvis or pelvic lymphadenopathy seen. Bones: Some facet arthropathy mid to lower lumbar spine. No osseous destructive process seen. IMPRESSION: 1. 1 cm nodular thickening along the left aryepiglottic fold shows increased now moderate FDG uptake max SUV 3.8 (versus 2.4, previously). Findings suggest slight interval enlargement of the patient's known neoplasm. 2. No CT or metabolic evidence for cervical lymphadenopathy or other metastatic disease. Limited asse ssment of the pelvis likely due to attenuation artifacts from the patient's hands at this level. 3. Cirrhosis and prominent upper abdominal collaterals suggesting underlying portal venous hypertensi on. Resolution of previous mild ascites.
== END | disposition home or self-care (01) ==
LOC: RADPETMAIN 08:17
PROVIDERS: ATTEND Radiology Radiation Oncology
DX: C13.0 Malignant neoplasm of postcricoid region (principal); R94.8 Abnormal results of function studies of other organs and systems
CPT/HCPCS: 78815; A9552

== ENCOUNTER 2019-02-26 21:10 | Emergency (ER) | payer MEDICARE ==
[2019-02-26 21:16] VITALS: TEMP 98
[2019-02-26] MEDS ORDERED: DIPH,PERTUS(ACELL)TETVAC-LF 0.5 ML VIAL IM ONE (21:40)
--- NOTE | 2019-02-26 21:49 | ED ---
Wound/Laceration HPI - General Chief Complaint: Wound/Laceration Stated Complaint: Finger Lac Time Seen by Provider: 02/26/19 21:24 Source: patient Mode of arrival: ambulatory Limitations: no limitations - History of Present Illness Initial Comments: 68-year-old male presents with left 3rd digit laceration that occurred just prior to arrival. Patient states it occurred on a power saw. Patient states he tried to wrap it up but he just noticed the bleeding continued. Patient states the pain is tolerable. He denies any numbness or tingling. Patient tetanus is not up-to-date -: hour(s) (2) Place: home Context: accidental Associated Symptoms: pain - Related Data Home Medications Medication Instructions Recorded Confirmed Folic Acid 1,600 mcg PO DAILY 10/16/17 02/11/18 B Complex-Vit C-Vit E-Zinc [Z-Bec] 1 tab PO DAILY 02/11/18 02/11/18 Magnesium 400 mg PO DAILY 02/11/18 02/11/18 Previous Rx's Medication Instructions Recorded Azithromycin [Zithromax Z-pack] 250 mg PO DIRECTED #6 tab NS 02/15/18 HYDROcodone/APAP 5-325MG [[place] 1 tab PO Q4HR PRN #20 tab NS 02/15/18 5-325] Cephalexin [Keflex] 500 mg PO Q8HR #30 cap 02/26/19 Allergies Allergy/AdvReac Type Severity Reaction Status Date / Time Penicillins Allergy Rash/Hives Verified 02/11/18 10:24 Review of Systems ROS Statement: Those systems with pertinent positive or pertinent negative responses have been documented in the HPI. ROS Other: All systems not noted in ROS Statement are negative. Constitutional: Denies: fever Musculoskeletal: Reports: other (Laceration left second digit tip) Skin: Reports: other (Laceration to the left second digit tip) Neurological: Denies: weakness, numbness Past Medical History Past Medical History: Asthma, Cancer, COPD, GERD/Reflux, GI Bleed, Hypertension, Liver Disease Additional Past Medical History / Comment(s): Irregular heart beat occ. Hx pancreatitis & ascities D/T to alcoholic cirrhosis, alcoholism with DTs in past, esophageal varices. CA LT PIRIFORM SINUS. History of Any Multi-Drug Resistant Organisms: None Reported Past Surgical History: Hernia Repair, Orthopedic Surgery Additional Past Surgical History / Comment(s): Colonoscopy, EGD, laser esophageal varices surgery, severed tendon lt thumb repaired, biopsy of vocal cord. Past Anesthesia/Blood Transfusion Reactions: No Reported Reaction Past Psychological History: No Psychological Hx Reported Smoking Status: Former smoker - Past Family History Father Family Medical History: Coronary Artery Disease (CAD), CVA/TIA, Myocardial Infarction ([place]) Additional Family Medical History / Comment(s): Father at 75 yrs. Mother Family Medical History: No Reported History Additional Family Medical History / Comment(s): Mother of bronchitis. She was 68yrs old. General Exam Limitations: no limitations General appearance: alert, in no apparent distress Respiratory exam: Present: normal lung sounds bilaterally. Absent: respiratory distress, wheezes, rales, rhonchi, stridor Cardiovascular Exam: Present: regular rate, normal rhythm, normal heart sounds. Absent: systolic murmur, diastolic murmur, rubs, gallop, clicks Left Hand Wrist exam: Present: laceration (large lacreation involving the entire distal tip of 3rd left digit, entire nailbed in distal lacerated finger), deformity, nail avulsion Neurological exam: Present: alert, oriented X3. Absent: motor sensory deficit Psychiatric exam: Present: normal affect, normal mood Skin exam: Present: warm, dry, normal color. Absent: intact (Large laceration to the distal tip of the second left digit. Entire nail lacerated), rash Course Vital Signs 02/26/19 21:12 Temperature 98.0 F Pulse Rate 102 H Respiratory 18 Rate Blood Pressure 138/88 O2 Sat by Pulse 98 Oximetry Procedures - Laceration Laceration #1 Consent Obtained: verbal consent Indication: laceration Site: hand Description: irregular Depth: simple, single layer Anesthetic Used: lidocaine 1% Anesthesia Technique: local infiltration Pre-repair: wound explored, irrigated extensively Size of Sutures: 4-0 Technique: simple, interrupted Patient Tolerated Procedure: well, no complications Additional Comments: bacitracin and dressing applied to gauze applied patient tolerated it well. Medical Decision Making - Medical Decision Making evaluated by dr. jerry. thakkar and talked with ortho public relations assistant, haroldo drummond. Ortho wanted us to repair the laceration and will see them on Thursday morning in the office. Patient will be given a dose of IM anabiotic slung with oral antibiotics as well. Disposition Clinical Impression: Laceration, Finger fracture Disposition: HOME SELF-CARE Condition: Fair Instructions (If sedation given, give patient instructions): Laceration (ED), Care For Your Stitches (ED) Prescriptions: Cephalexin [Keflex] 500 mg PO Q8HR #30 cap Is patient prescribed a controlled substance at d/c from ED?: No Referrals: Chucho Erickson MD [Primary Care Provider] - 1-2 days David Bhandari DO [Medical Doctor] - 1-2 days Time of Disposition: 23:23
--- NOTE | 2019-02-26 22:04 | XR ---
EXAMINATION TYPE: XR finger LT DATE OF EXAM: 02/26/2019 COMPARISON: None HISTORY: Laceration TECHNIQUE: Left middle finger is examined in 3 projections FINDINGS: There is a comminuted fracture of the tuft of the middle finger. Extensive soft tissue inju ry is present. Note is made of some degenerative joint changes within the uwjhf-uy-flat. IMPRESSION: 1. Comminuted fracture tuft of the middle finger left hand. 2. Extensive soft tissue injury midportion distal phalanx level middle finger.
[2019-02-26] MEDS ORDERED: LIDOCAINE 1% INJ 10MG/ML (20 ML MDV) SQ ONE (22:18)
[2019-02-26] MEDS ORDERED: ceFAZolin 1,000 MG VIAL IM STA (23:16)
[2019-02-27] MEDS ORDERED: ceFAZolin 1,000 MG VIAL IM ONE
[2019-02-27 00:08] VITALS: BP 142/87; PULSE 86; RESP 16
--- NOTE | 2019-03-01 03:57 | CDI ---
Dear Christopher Elizondo MD: Please do addendum length of the finger laceration repaired. Thank you, Kelby South, Intake Assessor. If you have any questions, please contact Solutions Operator at [phone]. [facility]
== END 2019-02-27 00:07 | disposition home or self-care (01) ==
LOC: EC 21:10
DX: S62.633B Displaced fracture of distal phalanx of left middle finger, initial encounter for open fracture (principal); Z87.891 Personal history of nicotine dependence; Z88.0 Allergy status to penicillin; Z85.818 Personal history of malignant neoplasm of other sites of lip, oral cavity, and pharynx; Z98.890 Other specified postprocedural states; Z23 Encounter for immunization; W31.2XXA Contact with powered woodworking and forming machines, initial encounter; Y93.89 Activity, other specified; Y92.009 Unspecified place in unspecified non-institutional (private) residence as the place of occurrence of the external cause
CPT/HCPCS: 99283; 90471; 12001; 96372; 73140; 90715; J0690; J2001

== ENCOUNTER 2019-09-14 11:33 | Observation (INO) | payer MEDICARE ==
[2019-09-14 12:48] VITALS: BMI 19.8
[2019-09-14 13:06] VITALS: RESP 18
[2019-09-14] MEDS ORDERED: SODIUM CHLORIDE 0.9% 1,000 ML IV SCH (13:15)
[2019-09-14 14:43] LABS: Basophils % (A) 0 %; Eosinophils # (A) 0.1 k/uL (0-0.7); Eosinophils % (A) 1 %; HCT 38.4 % (39.0-53.0); HGB 12.3 gm/dL (13.0-17.5); Lymphocytes # (A) 0.9 k/uL (1.0-4.8); Lymphocytes % (A) 18 %; MCH 31.4 pg (25.0-35.0); MCHC 31.9 g/dL (31.0-37.0); MCV 98.2 fL (80.0-100.0); Mean Platelet Volume 6.8; Monocytes # (A) 0.3 k/uL (0-1.0); Monocytes % (A) 6 %; Neutrophils # (A) 3.8 k/uL (1.3-7.7); Neutrophils % (A) 73 %; Platelet Count 174 k/uL (150-450); RBC 3.91 m/uL (4.30-5.90); RDW 13.3 % (11.5-15.5); WBC 5.2 k/uL (3.8-10.6)
[2019-09-14 14:49] LABS: Prothrombin Time 10.5 sec (9.0-12.0)
[2019-09-14] MEDS ORDERED: [UNRECOGNIZED DRUG - OTHER] TOPICAL PRN (14:49)
[2019-09-14] MEDS ORDERED: PETROLATUM TOPICAL PRN (14:49)
[2019-09-14] MEDS ORDERED: CAMPHOR TOPICAL PRN (14:49)
[2019-09-14] MEDS ORDERED: BENZOCAINE TOPICAL PRN (14:49)
[2019-09-14] MEDS ORDERED: HYDROcodone/APAP 15 ML SOLUTION PO PRN (14:52)
[2019-09-14 14:58] LABS: Albumin 3.2 g/dL (3.5-5.0); Calcium 8.9 mg/dL (8.4-10.2); Potassium 4.3 mmol/L (3.5-5.1); Total Bilirubin 0.4 mg/dL (0.2-1.3); Total Protein 6.2 g/dL (6.3-8.2)
--- NOTE | 2019-09-14 15:27 | CT ---
EXAMINATION TYPE: CT chest wo con DATE OF EXAM: 09/14/2019 COMPARISON: HISTORY: dysphagia, throat CA CT DLP: 319.6 mGycm. Automated Exposure Control for Dose Reduction was Utilized. TECHNIQUE: CT scan of the thorax is performed without IV contrast. FINDINGS: Lack of intravenous contrast could compromise sensitivity. LUNGS: The lungs are remarkable for some bandlike areas of increased attenuation at the lung bases po ssibly related to scarring or interstitial change.. There is no pleural effusion or pneumothorax se en. The tracheobronchial tree is patent. MEDIASTINUM: Lack of IV contrast is noted to limit evaluation for mediastinal and especially hilar ad enopathy. There are no definitive greater than 1 cm hilar or mediastinal lymph nodes. The heart is enlarged. No pericardial effusion is seen. There are coronary artery calcifications present. OTHER: The liver shows a nodular contour likely due to underlying cirrhosis, gallbladder is unremarka ble. Bilateral gynecomastia suspected. Degenerative disc changes are present in the visualized spine. Ascending aorta is aneurysmal at 4.4 cm. IMPRESSION: No acute abnormality. Noncontrast exam. Ascending aortic aneurysm. Coronary artery diseas e. Cardiomegaly.
--- NOTE | 2019-09-14 15:33 | CT ---
EXAMINATION TYPE: CT soft tissue neck wo con DATE OF EXAM: 09/14/2019 HISTORY: dysphagia, throat CA COMPARISON: CT neck January 28, 2018 and older studies. PET/CT February 20, [address] DLP: 261.7 mGycm. Automated Exposure Control for Dose Reduction was Utilized. TECHNIQUE: CT scan of the neck is performed without IV contrast, axial images are obtained, coronal and sagittal reformatted images are reviewed. FINDINGS: There is marked limited evaluation noncontrast CT for evaluating mucosal mass or neoplasm a long with neck adenopathy. Airway: Asymmetric soft tissue thickening left piriform sinus axial image, recurrent or persistent ne oplasm at this level cannot be excluded. The airway remains grossly patent. Parotid/submandibular gla nds: No gross abnormality seen. Carotid/Vascular Structures: Moderate to severe calcified plaque bilateral carotid bulb level is rede monstrated. Osseous Structures: Marked levoconvex scoliosis redemonstrated. Moderate to severe spurring and disc space narrowing C5-C6 and C6-C7 levels again seen. Multilevel uncovertebral facet degenerative change s bilaterally worse on the left. Other: Prominent but subcentimeter lymph nodes throughout the neck bilaterally was slightly more prom inent or larger lymph nodes on the left side noted. IMPRESSION: As above. All findings detailed above can be better evaluated with repeat PET CT if christie ed. Airway is noted to remain patent.
[2019-09-14] MEDS: methylPREDNISolone SOD SUCCI 40 MG/ML 1 ML VIAL IV SCH ×2 (19:41→19:53)
[2019-09-14] MEDS: HYDROcodone/APAP 5-325MG 1 EACH TAB PO PRN (19:52)
[2019-09-14 20:17] LABS: Hemoglobin A1C 5.8 % (4.0-6.0)
[2019-09-15] MEDS: HYDROcodone/APAP 5-325MG 1 EACH TAB PO PRN ×3 (01:34→12:05)
[2019-09-15 05:06] LABS: Appearance,Urine Clear (Clear); Bilirubin,Urine Negative (Negative); Blood,Urine Negative (Negative); Color,Urine Yellow; Glucose,Urine (UA) Negative (Negative); Ketones,Urine Negative (Negative); Leukocyte Esterase,Urine Negative (Negative); Mucus,Urine Rare /hpf; Nitrite,Urine Negative (Negative); Protein,Urine 2+ (Negative); RBC,Urine 1 /hpf (0-5); Specific Gravity,Urine 1.023 (1.001-1.035); Urobilinogen,Urine <2.0 mg/dL (<2.0)
[2019-09-15 05:57] LABS: Basophils % (A) 0 %; Eosinophils % (A) 0 %; HCT 36.4 % (39.0-53.0); HGB 12.1 gm/dL (13.0-17.5); Lymphocytes # (A) 0.7 k/uL (1.0-4.8); Lymphocytes % (A) 9 %; MCH 32.2 pg (25.0-35.0); MCHC 33.2 g/dL (31.0-37.0); MCV 96.8 fL (80.0-100.0); Mean Platelet Volume 6.6; Monocytes # (A) 0.2 k/uL (0-1.0); Monocytes % (A) 3 %; Neutrophils # (A) 6.4 k/uL (1.3-7.7); Neutrophils % (A) 87 %; Platelet Count 184 k/uL (150-450); RBC 3.76 m/uL (4.30-5.90); RDW 13.2 % (11.5-15.5); WBC 7.3 k/uL (3.8-10.6)
[2019-09-15 06:08] LABS: Albumin 3.1 g/dL (3.5-5.0); Calcium 8.9 mg/dL (8.4-10.2); Potassium 4.9 mmol/L (3.5-5.1); Total Bilirubin 0.4 mg/dL (0.2-1.3); Total Protein 6.1 g/dL (6.3-8.2)
[2019-09-15 06:52] LABS: Glucose,Whole Blood 119 mg/dL (75-99)
[2019-09-15] MEDS: INSULIN ASPART (NovoLOG) 100 UNIT/ML VIAL SQ SCH ×2 (08:34→14:31)
[2019-09-15] MEDS: methylPREDNISolone SOD SUCCI 40 MG/ML 1 ML VIAL IV SCH ×2 (08:38→16:29)
[2019-09-15] MEDS ORDERED: FOLIC ACID 1 MG TAB PO SCH (09:00)
[2019-09-15] MEDS ORDERED: MAGNESIUM OXIDE 400 MG TAB PO SCH (09:00)
--- NOTE | 2019-09-15 11:46 | P.CONS ---
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 The patient was recommended to undergo definitive radiotherapy, however he was lost to follow-up and did not return calls. The patient now presents secondary to a sore, painful area on the left lateral tongue for the past 5-6 months. During the patient's workup for his hypopharynx cancer/in situ disease, he underwent a PET/CT last in January 2018. This revealed some mild uptake in the area of the piriform sinus, but no other uptake within the head neck. The patient reports that approximately 5-6 months ago he noticed a sore area on his left lateral tongue. This area has become increasingly painful and has made it difficult for the patient to speak or eat. He has been using ibuprofen at home with partial response, but notes the pain is typically up to 8 out of 10 and dec reases to only 6 out of 10 with ibuprofen. The patient notes that he does have some pain radiating to the left ear, and he has lost approximately 20 pounds. He is unable to eat certain types of foods that are more acidic and irritate the tongue. The patient has not had follow-up with oncology or otolaryngology in more than a year and a half. The patient was direct admitted by his primary care when he reported this tongue mass. A CT scan of the neck without contrast was performed which showed the persistent left piriform sinus thickening, with subcentimeter bilateral adenopathy but nothing pathologic appearing in the neck. Based on my review, the patient appears to have a soft tissue mass in the left lateral oral tongue extending towards the base of tongue. A CT scan of the chest performed the same day without contrast was unremarkable. Review of Systems Constitutional: Reports weight loss, Denies chills, Denies fever Eyes: bilateral blurred vision Ears: deny: decreased hearing Ears, nose, mouth and throat: Reports mouth pain, Denies dysphagia, Denies epistaxis, Denies headache, Denies neck lump Cardiovascular: Denies chest pain, Denies edema Respiratory: Denies cough Gastrointestinal: Denies abdominal pain Genitourinary: Denies flank pain Musculoskeletal: Denies frequent falls, Denies neck pain Neurological: Denies ataxia, Denies confusion Psychiatric: Denies confusion Past Medical History Past Medical History: Asthma, Cancer, COPD, GERD/Reflux, GI Bleed, Hypertension, Liver Disease Additional Past Medical History / Comment(s): Irregular heart beat occ. Hx pancreatitis & ascities D/T to alcoholic cirrhosis, alcoholism with DTs in past, esophageal varices. CA LT PIRIFORM SINUS. History of Any Multi-Drug Resistant Organisms: None Reported Past Surgical History: Hernia Repair, Orthopedic Surgery Additional Past Surgical History / Comment(s): Colonoscopy, EGD, laser esophageal varices surgery, severed tendon lt thumb repaired, biopsy of vocal cord. Past Anesthesia/Blood Transfusion Reactions: No Reported Reaction Past Psychological History: No Psychological Hx Reported Additional Psychological History / Comment(s): . Smoking Status: Current every day smoker Past Alcohol Use History: None Reported Additional Past Alcohol Use History / Comment(s): Pt started smoking in 1965, WAS 2 1/2 ppd; down to < 1 ppd now; TRYING TO QUIT. no alcohol since since 2015. Past Drug Use History: Marijuana Additional Drug Use History / Comment(s): OCC USE ONLY - Past Family History Father Family Medical History: Coronary Artery Disease (CAD), CVA/TIA, Myocardial Infarction ([place]) Additional Family Medical History / Comment(s): Father at 75 yrs. Mother Family Medical History: No Reported History Additional Family Medical History / Comment(s): Mother of bronchitis. She was 68yrs old. Medications and Allergies Home Medications Medication Instructions Recorded Confirmed Type Folic Acid 0.8 mg PO DAILY 10/16/17 09/14/19 History Magnesium 400 mg PO DAILY 02/11/18 09/14/19 History Kovnkzswb-Icyxxvj-Dytyywfv-Pet 1 applic TOPICAL Q2H PRN 09/14/19 09/14/19 History [Anbesol Cold Sore Ointment] Ibuprofen [Motrin Ib] 1,200 mg PO Q12HR PRN 09/14/19 09/14/19 History Allergies Allergy/AdvReac Type Severity Reaction Status Date / Time Penicillins Allergy Rash/Hives Verified 09/14/19 14:10 Physical Exam Vitals: Vital Signs Temp Pulse Resp BP BP Pulse Ox 09/15/19 07:43 97.8 F 71 18 149/88 98 09/15/19 00:00 98.3 F 64 18 131/75 99 09/14/19 20:00 98.2 F 71 18 129/77 98 09/14/19 16:06 97.4 F L 72 152/88 98 09/14/19 13:05 97.5 F L 79 18 169/99 100 Intake and Output 09/14/19 09/15/19 09/15/19 22:59 06:59 14:59 Intake Total 600 Balance 600 Intake: Oral 600 Other: Voiding Method Toilet Toilet Toilet # Voids 1 1 - Constitutional General appearance: thin - EENT Eyes: EOMI, PERRLA ENT: hearing grossly normal, other (3 cm ulcerative mass on left lateral oral tongue, firm surrounding ulcer. Base of tongue soft on palpation. Tongue has reasonable mobility) Ears: bilateral: normal - Neck Neck: no lymphadenopathy, no rigidity - Respiratory Respiratory: bilateral: CTA - Cardiovascular Rhythm: regular - Integumentary Integumentary: no calor, no cellulitis - Neurologic Neurologic: CNII-XII intact - Musculoskeletal Musculoskeletal: no generalized weakness - Psychiatric Psychiatric: A&O x's 3 Results CBC & Chem 7: 09/15/19 05:31 09/15/19 05:31 Labs: Abnormal Lab Results - Last 24 Hours (Table) 09/14/19 09/14/19 09/15/19 Range/Units 14:23 14:23 02:55 RBC 3.91 L (4.30-5.90) m/uL Hgb 12.3 L (13.0-17.5) gm/dL Hct 38.4 L (39.0-53.0) % Lymphocytes # 0.9 L (1.0-4.8) k/uL Sodium (137-145) mmol/L Chloride 111 H (98-107) mmol/L Carbon Dioxide 19 L (22-30) mmol/L BUN 29 H (9-20) mg/dL Creatinine 1.33 H (0.66-1.25) mg/dL Glucose 119 H (74-99) mg/dL POC Glucose (mg/dL) (75-99) mg/dL ALT 20 L (21-72) U/L Total Protein 6.2 L (6.3-8.2) g/dL Albumin 3.2 L (3.5-5.0) g/dL Urine Protein 2+ H (Negative) Urine Mucus Rare H (None) /hpf 09/15/19 09/15/19 09/15/19 Range/Units 05:31 05:31 06:51 RBC 3.76 L (4.30-5.90) m/uL Hgb 12.1 L (13.0-17.5) gm/dL Hct 36.4 L (39.0-53.0) % Lymphocytes # 0.7 L (1.0-4.8) k/uL Sodium 135 L (137-145) mmol/L Chloride 111 H (98-107) mmol/L Carbon Dioxide 17 L (22-30) mmol/L BUN 29 H (9-20) mg/dL Creatinine (0.66-1.25) mg/dL Glucose 129 H (74-99) mg/dL POC Glucose (mg/dL) 119 H (75-99) mg/dL ALT 18 L (21-72) U/L Total Protein 6.1 L (6.3-8.2) g/dL Albumin 3.1 L (3.5-5.0) g/dL Urine Protein (Negative) Urine Mucus (None) /hpf CT scan - chest: report reviewed, image reviewed CT Scan - head: report reviewed, image reviewed Assessment and Plan Plan: The patient is a 69-year-old male with a 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 He has a history of significant tobacco and alcohol abuse. The patient was recommended to undergo definitive radiotherapy, however he was lost to follow-up and did not return calls. The patient now presents secondary to a sore, painful area on the left lateral tongue for the past 5-6 months. 1. Left lateral tongue mass: While this ulcerative area could be benign, considering the patient's risk factors as well as its clinical and radiographic appearance I would recommend biopsy to rule out oral tongue cancer. I discussed with the patient that I did not feel this was related to his previous abnormality in the piriform sinus. I discussed with the patient that he would be evaluated by Dr. Hopkins during this hospital stay. I explained that if he were diagnosed with a cancer in the oral tongue, he would subsequently need further imaging including a PET/CT. I explained that oral tongue cancer is typically a disease managed up front by surgery, and that if diagnosed he could undergo evaluation at [facility] with our ENT oncology group. The patient will likely need something better for pain than Ibuprofen as his relief is only partial. 2. 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 This lesion does appear to be relatively stable on imaging, however repeat fiberoptic exam would be recommended. The patient will be reevaluated by his previous radiation oncologist Dr. Groves who is more familiar with his case. Time with Patient: Greater than 30
[2019-09-15 11:48] LABS: Glucose,Whole Blood 130 mg/dL (75-99)
[2019-09-15 16:24] VITALS: BP 151/79; PULSE 80; TEMP 98.1
--- NOTE | 2019-09-15 18:34 | P.HPIM ---
History of Present Illness H&P Date: 09/15/19 Chief Complaint: Left tongue pain oral pain This is a 69-year-old with the significant past medical history of left. Home sinus tumor which was diagnosed in 2018 patient has problems and issues associated with follow-up and evaluation no radiation therapy has been done and now comes in with increased pain in the mouth revealed the data revealed that in January 2018 a PET scan and computed tomography scan showed uptake in the piriform sinus for details please refer to radiation oncology note patient is awaiting ENT evaluation a PET scan will be needed and radiation therapy to be considered Review of Systems All systems: negative Past Medical History Past Medical History: Asthma, Cancer, COPD, GERD/Reflux, GI Bleed, Hypertension, Liver Disease Additional Past Medical History / Comment(s): Irregular heart beat occ. Hx pancreatitis & ascities D/T to alcoholic cirrhosis, alcoholism with DTs in past, esophageal varices. CA LT PIRIFORM SINUS. History of Any Multi-Drug Resistant Organisms: None Reported Past Surgical History: Hernia Repair, Orthopedic Surgery Additional Past Surgical History / Comment(s): Colonoscopy, EGD, laser esophageal varices surgery, severed tendon lt thumb repaired, biopsy of vocal cord. Past Anesthesia/Blood Transfusion Reactions: No Reported Reaction Past Psychological History: No Psychological Hx Reported Additional Psychological History / Comment(s): . Smoking Status: Current every day smoker Past Alcohol Use History: None Reported Additional Past Alcohol Use History / Comment(s): Pt started smoking in 1965, WAS 2 1/2 ppd; down to < 1 ppd now; TRYING TO QUIT. no alcohol since since 2015. Past Drug Use History: Marijuana Additional Drug Use History / Comment(s): OCC USE ONLY - Past Family History Father Family Medical History: Coronary Artery Disease (CAD), CVA/TIA, Myocardial Infarction (ID) Additional Family Medical History / Comment(s): Father at 75 yrs. Mother Family Medical History: No Reported History Additional Family Medical History / Comment(s): Mother of bronchitis. She was 68yrs old. Medications and Allergies Home Medications Medication Instructions Recorded Confirmed Type Folic Acid 0.8 mg PO DAILY 10/16/17 09/14/19 History Magnesium 400 mg PO DAILY 02/11/18 09/14/19 History Alootafqc-Gbndfgu-Vebivpfn-Pet 1 applic TOPICAL Q2H PRN 09/14/19 09/14/19 History [Anbesol Cold Sore Ointment] Ibuprofen [Motrin Ib] 1,200 mg PO Q12HR PRN 09/14/19 09/14/19 History Allergies Allergy/AdvReac Type Severity Reaction Status Date / Time Penicillins Allergy Rash/Hives Verified 09/14/19 14:10 Physical Exam Vitals: Vital Signs Temp Pulse Resp BP BP Pulse Ox 09/15/19 16:00 98.1 F 80 18 151/79 98 09/15/19 07:43 97.8 F 71 18 149/88 98 09/15/19 00:00 98.3 F 64 18 131/75 99 09/14/19 20:00 98.2 F 71 18 129/77 98 Intake and Output 09/15/19 09/15/19 09/15/19 06:59 14:59 22:59 Intake Total 600 Balance 600 Intake: Oral 600 Other: Voiding Method Toilet Toilet # Voids 1 1 - Constitutional General appearance: thin - EENT Eyes: EOMI, PERRLA ENT: hearing grossly normal, other (3 cm ulcerative mass on left lateral oral tongue, firm surrounding ulcer. Base of tongue soft on palpation. Tongue has reasonable mobility) Ears: bilateral: normal - Neck Neck: no lymphadenopathy, no rigidity - Respiratory Respiratory: bilateral: CTA - Cardiovascular Rhythm: regular - Integumentary Integumentary: no calor, no cellulitis - Neurologic Neurologic: CNII-XII intact - Musculoskeletal Musculoskeletal: no generalized weakness - Psychiatric Psychiatric: A&O x's 3 Results CBC & Chem 7: 09/15/19 05:31 09/15/19 05:31 Labs: Abnormal Lab Results - Last 24 Hours (Table) 09/15/19 09/15/19 09/15/19 Range/Units 02:55 05:31 05:31 RBC 3.76 L (4.30-5.90) m/uL Hgb 12.1 L (13.0-17.5) gm/dL Hct 36.4 L (39.0-53.0) % Lymphocytes # 0.7 L (1.0-4.8) k/uL Sodium 135 L (137-145) mmol/L Chloride 111 H (98-107) mmol/L Carbon Dioxide 17 L (22-30) mmol/L BUN 29 H (9-20) mg/dL Glucose 129 H (74-99) mg/dL POC Glucose (mg/dL) (75-99) mg/dL ALT 18 L (21-72) U/L Total Protein 6.1 L (6.3-8.2) g/dL Albumin 3.1 L (3.5-5.0) g/dL Urine Protein 2+ H (Negative) Urine Mucus Rare H (None) /hpf 09/15/19 09/15/19 Range/Units 06:51 11:46 RBC (4.30-5.90) m/uL Hgb (13.0-17.5) gm/dL Hct (39.0-53.0) % Lymphocytes # (1.0-4.8) k/uL Sodium (137-145) mmol/L Chloride (98-107) mmol/L Carbon Dioxide (22-30) mmol/L BUN (9-20) mg/dL Glucose (74-99) mg/dL POC Glucose (mg/dL) 119 H 130 H (75-99) mg/dL ALT (21-72) U/L Total Protein (6.3-8.2) g/dL Albumin (3.5-5.0) g/dL Urine Protein (Negative) Urine Mucus (None) /hpf Chest x-ray: report reviewed CT scan - chest: report reviewed (Finding as noted above) Thrombosis Risk Factor Assmnt - Choose All That Apply Any of the Below Risk Factors Present?: No Other Risk Factors: Yes Each Risk Factor Represents 2 Points: Age 61-74 years Thrombosis Risk Factor Assessment Total Risk Factor Score: 2 Thrombosis Risk Factor Assessment Level: Low Risk Assessment and Plan Assessment: Left atrial tongue mass Oral pain Noncompliance History of squamous cell carcinoma of pyriform sinus Plan: Consultation with ENT and radiation oncology PET scan as outpatient Time with Patient: Greater than 30
--- NOTE | 2019-09-15 18:36 | P.DS ---
Providers Date of admission: 09/14/19 12:01 Expected date of discharge: 09/22/19 Attending physician: Chucho Erickson Consults: 09/14/19 13:00 Consult Physician Routine Consulting Provider: Olegario Delgado Consult Reason/Comments: radiation treatment throat cancer Do you want consulting provider notified?: Yes 09/14/19 13:32 Consult Physician Routine Consulting Provider: Berto Hopkins Consult Reason/Comments: throat ca, tongue lesion Do you want consulting provider notified?: Yes Primary care physician: [facility] Course: This is a 69-year-old with a diagnosis of left pyriform sinus tumor in 2018 now comes in with with left oral pain and tongue mass suspicious of progression of tumor, patient has been evaluated by ENT and radiation oncology recommended to undergo a PET scan as outpatient with follow-up in radiation oncology Pertinent Studies: Computed tomography scan of the neck, computed tomography scan of the chest Patient Condition at Discharge: Fair Plan - Discharge Summary New Discharge Prescriptions: No Action Folic Acid 0.8 mg PO DAILY Magnesium 400 mg PO DAILY Ibuprofen [Motrin Ib] 1,200 mg PO Q12HR PRN PRN Reason: Pain Qomaoxmbd-Vrpwhhf-Wcaxdafu-Pet [Anbesol Cold Sore Ointment] 1 applic TOPICAL Q2H PRN PRN Reason: Pain Discharge Medication List Folic Acid 0.8 mg PO DAILY 10/16/17 [History] Magnesium 400 mg PO DAILY 02/11/18 [History] Gdmcvtivu-Dwzaqhw-Myxpyoyh-Pet [Anbesol Cold Sore Ointment] 1 applic TOPICAL Q2H PRN 09/14/19 [History] Ibuprofen [Motrin Ib] 1,200 mg PO Q12HR PRN 09/14/19 [History] Follow up Appointment(s)/Referral(s): Chucho Erickson MD [Primary Care Provider] - 1 Week Berto Hopkins MD [STAFF PHYSICIAN] - 09/22/19 11:30 am (Follow up in the office with Dr. Hopkins as scheduled) Patient Instructions/Handouts: Dehydration (GEN)
--- NOTE | 2019-09-16 00:09 | CONS ---
CONSULTATION CHIEF COMPLAINT: Dysphagia, tongue mass, and a left piriform sinus mass. HISTORY OF PRESENT ILLNESS: The patient is a pleasant 69-year-old male who is well known to my office. 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 The patient has a history of heavy smoking, in that he smokes anywhere from 1-2 packs cigarettes per day and is also noted to be a heavy drinker. It was recommended that the patient stop smoking. In addition to this, the patient was set up with [facility] for radiation treatment. However, the patient decided to forego any radiation treatment. It was felt that even though this is carcinoma in situ it should still be treated with radiation and not with chemotherapy. The patient was lost to followup until this visit, when he presented complaining of weight loss, pain on swallowing, difficulty swallowing, etc. The patient states that he has had a sore on his tongue for at least the last 5-6 months and it has gradually gotten larger. He states that his difficulty is mainly with maneuvering his tongue to swallow food, and once he is able to get it to his posterior pharynx, the food goes down without any problem. That is to say, he denies any significant blockage that may be interfering with his swallowing food. He is obviously not able to eat any type of foodstuff that has any type of acid present or any type of citrus products. PAST MEDICAL HISTORY: The patient still smokes approximately 1+ pack of cigarettes per day. He has a known ALLERGY TO PENICILLIN. HOME MEDICATIONS: His home medications include: 1. Motrin. 2. Tylenol. 3. Oqsm-xrr-bzmtoky vitamins. REVIEW OF SYSTEMS: The review of systems is essentially noncontributory. PHYSICAL EXAMINATION: The patient is a pleasant 69-year-old male who is alert, cooperative and oriented to time and place. He does not appear to be in any acute distress at this time. HEENT: The patient is normocephalic. Tympanic membranes are normal. Middle ear spaces are free of any fluid or infection. Pupils are equal, round, reactive to light and accommodation. Extraocular movements within normal limits. Conjunctivae are clear. Intranasal examination reveals severe septal deviation to the left with compensatory hypertrophy of the inferior turbinates and a moderate amount of thick mucus on the mucous membranes. Examination of the oropharynx reveals that the patient has an ulcerated lesion approximately 1 cm in diameter on the left lateral border of the tongue. This lesion has the appearance of a carcinoma. The patient stated that he had initially thought that the sore was caused by some of the jagged molar teeth that he had posteriorly. Palpation of the neck is negative for neck masses or lymphadenopathy. Cranial nerves 2 through 12 and remainder of the head and neck exam are all within normal limits. CHEST/CARDIOVASCULAR: Both lung adams are clear to percussion and auscultation. Lung sounds are somewhat distant. The patient is in regular sinus rhythm. S1 and S2 are present without any murmurs, S3s or S4s. ABDOMEN: There is no evidence any masses, megaly or tenderness. The abdomen is soft. SKIN: Unremarkable. The remainder of the physical exam is essentially unremarkable. IMPRESSION: Suspicious 1 cm lesion of the left lateral border of the tongue. Suspect carcinoma. PLAN: The patient is scheduled to be seen in my office after discharge, and at that time I plan on scheduling the patient for a PET scan and also for an excisional biopsy of this lesion with reconstruction. It is to be noted that it is unlikely that this lesion is related to the lesion that he has present in the piriform sinus which again showed up on his CT scan with this visit. Carcinoma of the piriform sinus tends to spread inferiorly and not superiorly. Therefore this gentleman most likely has a second synchronous secondary primary carcinoma if it turns out that this is in fact a carcinoma. The treatment for this would be a wedge resection with adequate borders and reconstruction under general anesthesia. I want to take this opportunity to thank you for allowing me to assist you in the care of this patient. If I can be of any further assistance, please feel free to call my office. MMODL / IJN: [id number] /
== END 2019-09-15 19:20 | disposition home or self-care (01) ==
LOC: 1SOBS 12:01
PROVIDERS: ADMIT Family Medicine; ATTEND Family Medicine
DX: K14.9 Disease of tongue, unspecified (principal); D00.08 Carcinoma in situ of pharynx; K14.6 Glossodynia; R13.10 Dysphagia, unspecified; R59.9 Enlarged lymph nodes, unspecified; I71.2 Thoracic aortic aneurysm, without rupture; I10 Essential (primary) hypertension; K21.9 Gastro-esophageal reflux disease without esophagitis; K70.30 Alcoholic cirrhosis of liver without ascites; I85.10 Secondary esophageal varices without bleeding; J44.9 Chronic obstructive pulmonary disease, unspecified; F17.210 Nicotine dependence, cigarettes, uncomplicated; Z79.899 Other long term (current) drug therapy; Z88.0 Allergy status to penicillin; Z91.19 Patient's noncompliance with other medical treatment and regimen; Z85.818 Personal history of malignant neoplasm of other sites of lip, oral cavity, and pharynx; Z87.19 Personal history of other diseases of the digestive system; Z82.49 Family history of ischemic heart disease and other diseases of the circulatory system; Z82.3 Family history of stroke; Z82.5 Family history of asthma and other chronic lower respiratory diseases
CPT/HCPCS: 96374; 96376; 92610; 80061; 80053 ×2; 84484; 85025 ×2; 85610; 81001; 83036; 70490; 71250; G0378 ×2; G0379; G0103; J2920 ×2

== ENCOUNTER 2019-09-30 08:36 | Day surgery (SDC) | payer MEDICARE ==
[2019-09-28 14:15] VITALS: BMI 20.5
--- NOTE | 2019-09-30 05:06 | HP ---
HISTORY AND PHYSICAL CHIEF COMPLAINT: Left tongue mass. HISTORY OF PRESENT ILLNESS: This patient is a pleasant 69-year-old male who was well known to my office. 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 He was subsequently scheduled to undergo radiation treatment, but unfortunately he was given advice by one of his physicians that they did not feel it was necessary. Therefore, the patient elected to postpone the radiation. He is and has always been a heavy smoker of anywhere from 1 to 2 packs per day. The patient has made only a modicum of effort to stop smoking. He previously was a heavy drinker and drank as much as a half a liter of vodka daily. He apparently stopped this behavior many years ago. He was recently admitted to [facility] because of weight loss, pain on swallowing, difficulty eating, and a very painful sore on the left side of his tongue. At the time that he was seen in the hospital and he was subsequently seen in my office, clinical examination revealed the patient had a suspicious 1 cm ulcerated, painful, firm, well-circumscribed lesion located on the left posterior lateral portion of the tongue. This lesion is highly suspicious for a carcinoma. In addition to this, the patient's carcinoma in his left pyriform sinus remains untreated and according to a recent PET scan has enlarged somewhat. It was therefore recommended the patient undergo excision of left tongue mass, possible wedge excision, under general anesthesia. PAST MEDICAL HISTORY: Past medical history reveals the patient has an allergy to PENICILLIN. He still smokes apparently approximately one pack plus of cigarettes per day. HOME MEDICATIONS: Home medications Include: 1. Motrin. 2. Tylenol. 3. Ghyg-jdq-paduejn vitamins. REVIEW OF SYSTEMS: The review of systems is essentially noncontributory. PHYSICAL EXAMINATION: The patient is a pleasant 69-year-old male who was alert, cooperative and well-oriented to time and place. He does not appear to be in any acute distress at this time. HEENT EXAMINATION: Patient is normocephalic. Tympanic membranes are normal. Middle ear spaces are free of any fluid or infection. Pupils equal, round, react to light and accommodation. Extraocular movements are within normal limits. Intranasal examination reveals moderate to severe septal deviation with bilateral compensatory hypertrophy of the inferior turbinates and a moderate amount of thick clear mucus on the mucous membranes and draining down the posterior pharynx. Examination of the oropharynx including deep palpation of the tongue reveals patient has a very tender, well- circumscribed 1 cm ulcerated lesion located on the left posterior lateral border of the tongue. Palpation of the neck is negative for any neck adenopathy. Cranial nerves 2 through 12 and remainder of the head and neck exam is unremarkable. CHEST/CARDIOVASCULAR: Both lung adams are clear to percussion and auscultation. The patient is in regular sinus rhythm. S1 and S2 are present without evidence of any murmurs, S3s or S4s. Peripheral pulses are bilaterally symmetrical. ABDOMEN: There is no evidence of any masses, megaly, or tenderness. The abdomen is soft. Skin is unremarkable. Musculoskeletal and neurological are within normal limits. RECTAL EXAM: The rectal exam is deferred at this time because the patient has this done on a regular basis at his family physician's office. The remainder of the physical exam is essentially unremarkable. IMPRESSION: Suspicious lesion of the left posterior lateral border of the tongue, suspect malignancy. PLAN: The patient is scheduled to undergo excision of left tongue mass/lesion under general anesthesia. ATTENTION NURSES IN THE PREOPERATIVE AREA: The only pre-surgical medications that I have ordered is for this patient to receive 1000 mg of Ofirmev IV to be given once an intravenous line has been established and also he is to receive 600 mg of clindamycin IV once an intravenous line has been established. If the pharmacy department sends any other pre-surgical prophylactic antibiotics to the pre-surgical area for this patient, please cancel that order and return the medication to the pharmacy. Also please make sure that the patient's account is credited appropriately. I have discussed the risks, benefits and alternative therapies for the above-mentioned procedure and for both sedation/analgesia as well as necessary blood product administration, if indicated, as they pertain to this patient. The patient has indicated his or her understanding and acceptance of the risks and procedures discussed. MMODL / IJN: [id number] /
[~2019-09-30 08:36] MED LIST changes: +DEXAMETHASONE SOD PHOSPHATE 10 MG/ML 1 ML VIAL IV ONE; +HYDROmorphone 0.5 MG/0.5 ML SYRINGE IVP PRN; +MIDAZOLAM 2 MG/2 ML VIAL IV PRN; -MORPHINE SULFATE 2 MG/ML SYRINGE IV PRN; +ONDANSETRON 4 MG/2 ML VIAL IVP ONE
[2019-09-30] MEDS ORDERED: LIDOCAINE 1% 20 ML VIAL (10MG/ML) FOR IV START INTRADERMA ONE (09:22)
[2019-09-30] MEDS ORDERED: CLINDAMYCIN 600 MG in DEXTROSE 5% IN WATER 50 ML IVPB ONE ×2 (09:45)
[2019-09-30] MEDS ORDERED: ACETAMINOPHEN IV (For NPO) 1,000 MG in EMPTY BAG 1 BAG IVPB ONE (09:45)
[2019-09-30] MEDS ORDERED: LIDOCAINE 1%-EPI 1:100,000 20 ML VIAL SQ ONE (09:56)
[2019-09-30] MEDS ORDERED: HYDROmorphone (PF) 1 MG/ML ONE (10:07)
[2019-09-30] MEDS ORDERED: ePHEDrine SULFATE/0.9% NACL/PF 50 MG/5 ML SYRINGE IV ONE (10:07)
[2019-09-30] MEDS ORDERED: fentaNYL (PF) 50 MCG/ML 2 ML AMP ONE (10:07)
[2019-09-30] MEDS ORDERED: SUCCINYLCHOLINE CHLORIDE 100 MG/5 ML SYR IV ONE (10:07)
[2019-09-30] MEDS ORDERED: MIDAZOLAM 2 MG/2 ML VIAL ONE (10:07)
[2019-09-30] MEDS ORDERED: diphenhydrAMINE 50 MG/ML 1 ML VIAL ONE (10:07)
[2019-09-30] MEDS ORDERED: LIDOCAINE 1% INJ 10MG/ML (20 ML MDV) ONE (10:07)
[2019-09-30] MEDS ORDERED: PROPOFOL 10 MG/ML 20 ML VIAL IV ONE (10:07)
[2019-09-30 11:52] VITALS: TEMP 96.6
[2019-09-30] MEDS ORDERED: DEXAMETHASONE SOD PHOSPHATE 10 MG/ML 1 ML VIAL IV STA (12:23)
[2019-09-30] MEDS ORDERED: HYDROcodone/APAP 7.5-325MG 1 EACH TAB PO ONE (13:50)
[2019-09-30] MEDS ORDERED: DEXAMETHASONE SOD PHOSPHATE 10 MG/ML 1 ML VIAL IV ONE (14:10)
[2019-09-30 14:14] VITALS: BP 146/85; PULSE 78; RESP 18
--- NOTE | 2019-10-04 05:37 | OP ---
OPERATIVE REPORT DATE OF SURGERY: 09/30/2019 PREOPERATIVE DIAGNOSIS: Left tongue mass. POSTOPERATIVE DIAGNOSIS: Left tongue mass, final pathology pending. ANESTHESIA: General. OPERATIVE PROCEDURE: Excision of left tongue mass with complex repair. OPERATING SURGEON: Dr. Hopkins. COMPLICATIONS: None. ESTIMATED BLOOD LOSS: Less than 25 mL. OPERATIVE PROCEDURE: The patient was placed on operating table in supine position and after uneventful induction endotracheal intubation, satisfactory general anesthesia was obtained. Next, the patient was draped in usual customary fashion. Initially, a pair of dental bite blocks were placed in the right buccal sulcus. In addition to this, a Lalita gag was used with appropriate mouth guards to protect the teeth. Next, the tip of the patient's tongue was grasped with a towel clip and pulled anteriorly thus exposing the lesion which was located along the left posterolateral aspect of the tongue. Palpation of the area revealed that the lesion extended into the underlying muscles. In addition to this, further palpation at the base of the tongue revealed that there was significant firmness at the base of the tongue on the left side when compared to the right side. Deep palpation of the neck did not reveal evidence of any significant lymphadenopathy. In addition to this, the left retromolar trigone was felt to be completely free of any suspicious disease. Furthermore, the firmness of the base of the tongue extended down to the floor of the mouth, but there was no discrete mass palpated. Palpation of the primary lesion again revealed firmness to extend into the underlying musculature. The lesion was approximately 1.5 cm in diameter. The tongue was dried with a 4 x 4 gauze and subsequently using a NaphCareman marking pen a large proposed elliptical incision was drawn on the tongue. that because this lesion was highly suspicious for carcinoma and because of his large size margins were knowingly quite close, especially on the dorsal and ventral aspect of the lesion. Next using the needle-tip Bovie, the lesion was excised on a watt setting of 40 helm to cut through the mucous membrane down to the submucosal tissue and deep into the underlying muscle. Care was taken to avoid injury to either the lingual artery or the lingual nerve. The lesion was excised as completely as possible. This created a rather large defect. Hemostasis was obtained using electrocautery. The excised lesion was marked with a black suture anteriorly, a purple suture posteriorly, a white suture ventrally and a blue suture dorsally. The specimen was sent in formalin for permanent sectioning. Further palpation of the underlying muscle did not reveal any significant firmness. It is ti be noted in the process of excising the lesion a significant portion of the underlying muscle was excised as usual. Next the complex closure was initially begun by reapproximating the underlying muscle fibers which had been incised using 4-0 rapid absorbing Vicryl in an interrupted buried fashion. Next a second reinforcing layer of interrupted buried 4-0 Vicryl was used to further strengthen the closure of the underlying muscle. The submucosal layer was then reapproximated using 4-0 rapid absorbing Vicryl in an interrupted buried fashion. It is to be noted that because of the large defect and in an effort to provide as tension-free closure as possible, the closure was began initially posteriorly, working anteriorly. Finally, the mucosal layer of the tongue was approximated as tension-free as possible using 4-0 rapid absorbing Vicryl in interrupted buried fashion. Because of the large defect, a very small area of approximately 3 or 4 mm was left open posteriorly because any attempt to close it would have caused too much tension on the incision. At this point, the procedure was terminated. Approximate operating time was 2 hours and 13 minutes. No local anesthesia was used because of concern: 1. Distorting the mass. 2. If the patient had any residual anesthesia of the tongue post intubation, it is possible he might accidentally chew his tongue because there would be no feeling in the left side. The specimen was sent to Pathology and permanent sectioning. At this point, the procedure was terminated. There were no known intraoperative complications. The patient tolerated procedure well. It is felt that this lesion is most likely malignant and that there may very well be residual tumor at the base of the tongue. 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 Again, it is to be noted that the margins dorsally and ventrally were intentionally somewhat limited in an effort to avoid a closure that would have required a dermal skin graft. The patient tolerated procedure well and was returned to the recovery room in satisfactory condition. MMODL / IJN: [id number] /
== END 2019-09-30 14:47 | disposition home or self-care (01) ==
LOC: OR 08:36
PROVIDERS: ATTEND Otolaryngology
DX: C02.1 Malignant neoplasm of border of tongue (principal); D00.08 Carcinoma in situ of pharynx; K21.9 Gastro-esophageal reflux disease without esophagitis; F17.210 Nicotine dependence, cigarettes, uncomplicated; I65.23 Occlusion and stenosis of bilateral carotid arteries; K70.31 Alcoholic cirrhosis of liver with ascites; Z79.1 Long term (current) use of non-steroidal anti-inflammatories (NSAID); Z79.899 Other long term (current) drug therapy; Z88.0 Allergy status to penicillin; Z79.891 Long term (current) use of opiate analgesic
CPT/HCPCS: 41112; 88305; 88342; 88341; J2250; J1200; J1100; J2405; J2001; J3010; J1170; J0131; J0330; J2704

== ENCOUNTER → 2019-10-14 | Outpatient (CLI) | payer MEDICARE ==
--- NOTE | 2019-10-17 11:41 | PE ---
Nuclear medicine PET/CT HISTORY: Malignant neoplasm of posterior cricoid region, had neck cancer, initial Patient received 10.8 mCi F-18 FDG intravenously in delayed scanning was performed from the skull bas e to the mid thighs. Localization and attenuation correction CT was performed. Small [id number] im aging obtained through the head and neck. Correlation to CT soft tissue neck 09/14/2019 Neck: At the level of the left palatine tonsil, posterior left tongue region and floor of mouth deep to the left mandible there is abnormal soft tissue with associated hypermetabolic uptake, SUV is 14. 5 and the area is poorly defined but measures approximately 3.7 cm in AP dimension by 3.1 cm in trans verse dimension. Deep to the left sternocleidomastoid muscle there is a nonenlarged node in the subma ndibular location with SUV value 6.2, additional node just inferiorly at the level of the hyoid bone also present on the left with SUV 5.7. There are dense carotid artery calcifications. No supraclavicu lar adenopathy. CHEST: The lungs show no mass. There is no pleural or pericardial effusion. No suspicious hypermetabo lic uptake. There is no mediastinal, axillary, or hilar adenopathy. Coronary artery calcifications ar e present. Ascending aorta measures 4.2 cm. ABDOMEN: The liver shows a distorted and lobular contour. No evident liver mass, no retroperitoneal a denopathy or mass. No suspicious hypermetabolic uptake. There is no ascites. Aorta shows dense calcif ication. No evident adrenal lesion. Gallbladder and kidneys are within normal limits. Osseous structures are remarkable for degenerative disc changes in the visualized spine. No suspiciou s hypermetabolic uptake. IMPRESSION: Abnormal hypermetabolic uptake in the neck as described. Correlate for possible cirrhosis . Coronary artery disease. Aortic aneurysm.
== END | disposition home or self-care (01) ==
LOC: RADPETMAIN 14:19
PROVIDERS: ATTEND Radiology Radiation Oncology
DX: C13.0 Malignant neoplasm of postcricoid region (principal); I25.10 Atherosclerotic heart disease of native coronary artery without angina pectoris; I71.9 Aortic aneurysm of unspecified site, without rupture; D00.08 Carcinoma in situ of pharynx; R94.8 Abnormal results of function studies of other organs and systems
CPT/HCPCS: 78815; A9552

== ENCOUNTER → 2019-10-27 | Outpatient (CLI) | payer MEDICARE ==
--- NOTE | 2019-10-27 16:11 | CT ---
EXAMINATION TYPE: CT soft tissue neck w con DATE OF EXAM: 10/27/2019 COMPARISON: 09/14/2019 HISTORY: Tongue CA follow up CT DLP: 329.8 mGycm CONTRAST: Patient injected with 80 mL of Isovue 300. TECHNIQUE: Axial images at 3 mm thick sections. Reconstructed images in the coronal plane and sagitt al plane are reviewed. FINDINGS: Limited CT sections are obtained the lung apices. On the initial image there may be some d ebris within the inferior aspect of the trachea. Series 8 image 1. An endobronchial lesion is not exc luded. Consider follow-up. The lung apices otherwise appear clear. CT neck: The torus tubarius and fossa of Rosenmuller are normal. Flask Maker spaces are normal. Para nasal sinuses and mastoid air cells are clear. Parotid glands appear normal and symmetrical. Submandibular glands, are normal. Parapharyngeal spac es are normal. Extensive shotty lymphadenopathy appears to be present greater on the left than the r ight. No enlarged lymphadenopathy however is evident. There is an asymmetric density within the left posterior tongue extending towards the tonsillar giovanni r on previous adjacent to the level the mandible above the geniohyoid musculature is estimated to cindy sure 3.0 x 3.7 cm. This area is similar to the PET/CT of 10/14/2019. Thickening remains through the left piriform sinus. Vocal cord level appear symmetrical. This has limitation as the vocal cords appear largely closed dur ing this portion of the exam. Thyroid as visualized is normal. Osseous structures are normal. IMPRESSIONS: 1. Persistent mass left posterior tongue at the level the mandible. 2. Stable thickening in the left piriform sinus level. 3. There appears to be extensive shotty lymphadenopathy present on the left enlarged lymphadenopathy is not identified at this time. This appears to be increasing over the interval.
== END | disposition home or self-care (01) ==
LOC: RADCTMAIN 12:29
PROVIDERS: ATTEND Otolaryngology
DX: C02.9 Malignant neoplasm of tongue, unspecified (principal); J39.2 Other diseases of pharynx; C13.0 Malignant neoplasm of postcricoid region; D00.08 Carcinoma in situ of pharynx; R59.1 Generalized enlarged lymph nodes
CPT/HCPCS: 82565; 84520; 70491; 36415; Q9967

== ENCOUNTER → 2019-12-12 | Outpatient (CLI) | payer MEDICARE ==
[2019-12-12 16:03] LABS: African American GFR (CKD) >90 (>60 ml/min/1.73 sqM); Blood Urea Nitrogen 33 mg/dL (9-20); Non-African American GFR(CKD) 86 (>60 ml/min/1.73 sqM)
--- NOTE | 2019-12-12 17:39 | CT ---
EXAMINATION TYPE: CT neck chest with and without con DATE OF EXAM: 12/12/2019 COMPARISON: 10/27/2019, PET/CT scan 10/14/2019 HISTORY: Tongue CA CT DLP: 925.69 mGycm Automated exposure control for dose reduction was used. FINDINGS: Dental artifact limits the exam. CT neck: The torus tubarius and fossa of Rosenmuller are normal. Tea Taster spaces are normal. Parana lori sinuses and mastoid air cells are clear. Parotid glands appear normal and symmetrical. Submandibular glands, are normal. Parapharyngeal spaces are normal. Extensive shotty lymphadenopathy appears to be present greater on the left than the righ t. No enlarged lymphadenopathy however is evident. Short axis measurement of 9 mm noted on the left. There is an asymmetric density within the left posterior tongue extending towards the tonsillar giovanni r on previous adjacent to the level the mandible above the geniohyoid musculature is estimated to cindy sure 4.7 x 3.3 cm and previously measured 3.0 x 3.7 cm. This area is concordant with the abnormality seen by PET/CT of 10/14/2019. This represents interval increase in size. There also is increased kacy ation from left to right of the airway relative to the prior exam Thickening remains through the left piriform sinus. Vocal cord level appear symmetrical. This has maxwell itation as the vocal cords appear largely closed during this portion of the exam. Thyroid as visualiz ed is normal. Extensive atherosclerotic change of the carotid bifurcations are noted. Scoliosis with multilevel sev ere degenerative disc disease and hypertrophic changes with multilevel foraminal encroachment suspect ed canal stenosis at C5-6 and C6-C7 suspected. Recommend follow-up MRI. Thyroid enhances normal. CT CHEST: The lungs are clear. There is no pneumothorax or pleural effusion. Mild hyperinflation is s uggestive of COPD. There are no sizable pulmonary nodules. Linear changes involving the anterior jm in the right lower lobe are most typical atelectasis. There is atherosclerotic change of aorta. A trace of pericardial effusion is seen and there is dense coronary artery atherosclerotic disease. Mild cardiomegaly and tiny pericardial effusion noted. No pa thologic adenopathy. Pulmonary arteries are of normal caliber and proximally enhance normally. Hypertrophic and degenerative change of the vertebral column. No destructive changes. Structures of t he upper abdomen demonstrate a small amount of ascites adjacent to the liver. Spleen is homogeneous a s visualized. Extensive atherosclerotic change at the origin of the celiac artery. Gallbladder is pro minent in size and there is slight heterogeneous enhancement to the liver which is partially included which be correlated with liver function studies IMPRESSION: 1. The previously noted left base of the tongue mass has increased in size now measuring 4.7 x 3.3 cm and previously measuring 3.7 x 3.0 cm. In addition, there is increased deviation from left to right of the airway secondary to the large mass. 2. The persistent shotty adenopathy with no lymph nodes measuring greater than 1 cm in short axis. Wi thin the left neck there is a single lymph node measuring short axis of 9 mm. This lymph node previou sly measured 6 mm in short axis. 3. No evidence of intrathoracic metastases. 4. Trace amount of ascites. Correlate with liver function studies to assess the liver which has a het erogeneous enhancement pattern without evidence of discrete mass note is made only portions of the li sayda included in the exam. The gallbladder does appear to be prominent in size. This is similar appear ance to the PET/CT scan of 10/14/2019.
== END | disposition home or self-care (01) ==
LOC: RADCTMAIN 14:52
PROVIDERS: ATTEND Otolaryngology
DX: C02.9 Malignant neoplasm of tongue, unspecified (principal); C13.0 Malignant neoplasm of postcricoid region; D00.08 Carcinoma in situ of pharynx
CPT/HCPCS: 82565; 84520; 70490; 70491; 71250; 71260; 36415; Q9967; 70492; 71270

== ENCOUNTER 2019-12-23 13:29 | Emergency (ER) | payer MEDICARE ==
--- NOTE | 2019-12-23 14:10 | ED ---
General Adult HPI - General Chief complaint: ENT Stated complaint: Mouth pain/ca Time Seen by Provider: 12/23/19 13:42 Source: patient, RN notes reviewed Mode of arrival: ambulatory Limitations: no limitations - History of Present Illness Initial comments: Patient is a pleasant 69-year-old male presenting to the emergency Department with mouth and tongue pain. Onset of symptoms was a couple months ago. Patient did have biopsy and repeat computed tomography scan just over a week ago. Patient has known cancer of the tongue. Patient feels it is getting worse and is having increase in pain with that. Patient states there is some difficulty swallowing, no dyspnea. Patient did have biopsy with ENT here however is planned have surgery with out of [facility]. Patient has also seen the radiation oncology here. - Related Data Home Medications Medication Instructions Recorded Confirmed Folic Acid 0.8 mg PO DAILY 10/16/17 09/28/19 Magnesium 400 mg PO DAILY 02/11/18 09/28/19 Jqrdbvxaj-Wclxhqb-Naczjxcv-Pet 1 applic TOPICAL Q2H PRN 09/14/19 09/28/19 [Anbesol Cold Sore Ointment] Ibuprofen [Motrin Ib] 1,200 mg PO Q12HR PRN 09/14/19 09/28/19 HYDROcodone/APAP 10-325MG [[place] 1 tab PO Q8H 09/28/19 09/28/19 10-325] Previous Rx's Medication Instructions Recorded Clindamycin [Cleocin] 300 mg PO Q8HR 7 Days #21 capsule 09/29/19 HYDROcodone/APAP 7.5-325MG [[place] 1 tab PO Q4H PRN 3 Days #18 tab 09/29/19 7.5-325] Allergies Allergy/AdvReac Type Severity Reaction Status Date / Time Penicillins Allergy Rash/Hives Verified 12/23/19 13:41 Review of Systems ROS Statement: Those systems with pertinent positive or pertinent negative responses have been documented in the HPI. ROS Other: All systems not noted in ROS Statement are negative. Constitutional: Denies: fever Eyes: Denies: eye pain ENT: Reports: as per HPI Respiratory: Denies: dyspnea Cardiovascular: Denies: chest pain Endocrine: Denies: fatigue Gastrointestinal: Denies: abdominal pain Genitourinary: Denies: dysuria Musculoskeletal: Denies: back pain Skin: Denies: rash Neurological: Denies: weakness Past Medical History Past Medical History: Asthma, Cancer, COPD, GERD/Reflux, GI Bleed, Hypertension, Liver Disease Additional Past Medical History / Comment(s): Irregular heart beat occ. Hx pancreatitis & ascities D/T to alcoholic cirrhosis, alcoholism with DTs in past, esophageal varices. CA LT PIRIFORM SINUS. History of Any Multi-Drug Resistant Organisms: None Reported Past Surgical History: Hernia Repair, Orthopedic Surgery Additional Past Surgical History / Comment(s): Colonoscopy, EGD, laser esophageal varices surgery, severed tendon lt thumb repaired, biopsy of vocal cord. Past Anesthesia/Blood Transfusion Reactions: No Reported Reaction Past Psychological History: No Psychological Hx Reported Smoking Status: Current every day smoker Past Alcohol Use History: None Reported Past Drug Use History: None Reported - Past Family History Father Family Medical History: Coronary Artery Disease (CAD), CVA/TIA, Myocardial Infarction ([place]) Additional Family Medical History / Comment(s): Father at 75 yrs. Mother Family Medical History: No Reported History Additional Family Medical History / Comment(s): Mother of bronchitis. She was 68yrs old. General Exam Limitations: no limitations General appearance: alert, in no apparent distress Head exam: Present: normocephalic Eye exam: Present: normal appearance, PERRL ENT exam: Present: other (Left posterior pharynx/tonsillar fullness and tenderness. There is also significant tongue tenderness and raised floor of the mouth.) Neck exam: Present: normal inspection Respiratory exam: Present: normal lung sounds bilaterally Cardiovascular Exam: Present: regular rate, normal rhythm GI/Abdominal exam: Present: soft. Absent: tenderness Extremities exam: Present: normal inspection Neurological exam: Present: alert Psychiatric exam: Present: normal affect, normal mood Skin exam: Present: normal color Course Vital Signs 12/23/19 12/23/19 13:35 16:05 Temperature 98.4 F Pulse Rate 55 L 100 Respiratory 22 19 Rate Blood Pressure 132/82 O2 Sat by Pulse 97 98 Oximetry - Reevaluation(s) Reevaluation #1: 12/23/19 14:29 Case was discussed with ENT, Dr. Powers, who would like patient transferred to [facility] in [place]. He will accept transfer. He states patient will need surgery however patient will also need laparoscopic G-tube and further workup prior to procedure. Patient reevaluated and updated. 12/23/19 16:09 Patient cannot tolerate K-Lyte liquid and was switched to k-dur. Still waiting on bed assignment from [facility] Medical Decision Making - Lab Data Result diagrams: 12/23/19 15:00 12/23/19 15:00 Lab Results 12/23/19 12/23/19 12/23/19 Range/Units 15:00 15:00 15:00 WBC 5.9 (3.8-10.6) k/uL RBC 3.64 L (4.30-5.90) m/uL Hgb 11.8 L (13.0-17.5) gm/dL Hct 35.2 L (39.0-53.0) % MCV 96.7 (80.0-100.0) fL MCH 32.5 (25.0-35.0) pg MCHC 33.6 (31.0-37.0) g/dL RDW 14.1 (11.5-15.5) % Plt Count 139 L (150-450) k/uL Neutrophils % 69 % Lymphocytes % 17 % Monocytes % 9 % Eosinophils % 2 % Basophils % 1 % Neutrophils # 4.0 (1.3-7.7) k/uL Lymphocytes # 1.0 (1.0-4.8) k/uL Monocytes # 0.5 (0-1.0) k/uL Eosinophils # 0.1 (0-0.7) k/uL Basophils # 0.1 (0-0.2) k/uL PT 10.8 (9.0-12.0) sec INR 1.0 (<1.2) APTT 24.5 (22.0-30.0) sec Sodium 141 (137-145) mmol/L Potassium 2.1 L* (3.5-5.1) mmol/L Chloride 88 L (98-107) mmol/L Carbon Dioxide 44 H* (22-30) mmol/L Anion Gap 9 mmol/L BUN 30 H (9-20) mg/dL Creatinine 0.93 (0.66-1.25) mg/dL Est GFR (CKD-EPI)AfAm >90 (>60 ml/min/1.73 sqM) Est GFR (CKD-EPI)NonAf 83 (>60 ml/min/1.73 sqM) Glucose 84 (74-99) mg/dL Calcium 8.6 (8.4-10.2) mg/dL Total Bilirubin 0.8 (0.2-1.3) mg/dL AST 41 (17-59) U/L ALT 15 (4-49) U/L Alkaline Phosphatase 121 (38-126) U/L Total Protein 6.8 (6.3-8.2) g/dL Albumin 3.3 L (3.5-5.0) g/dL Disposition Clinical Impression: Tongue cancer Disposition: OTHER INSTITUTION NOT DEFINED Is patient prescribed a controlled substance at d/c from ED?: No Referrals: Chucho Erickson MD [Primary Care Provider] - 1-2 days Time of Disposition: 14:31 - Out of Hospital Transfer - Req. Specs Out of Hospital Transfer - Requested Specifics: Other Non-Acute
[2019-12-23] MEDS ORDERED: MORPHINE SULFATE 4 MG/ML SYRINGE IV STA (14:31)
[2019-12-23] MEDS ORDERED: SODIUM CHLORIDE 0.9% 1,000 ML IV STA (14:31)
[2019-12-23 15:19] LABS: Basophils # (A) 0.1 k/uL (0-0.2); Basophils % (A) 1 %; Eosinophils # (A) 0.1 k/uL (0-0.7); Eosinophils % (A) 2 %; HCT 35.2 % (39.0-53.0); HGB 11.8 gm/dL (13.0-17.5); Lymphocytes % (A) 17 %; MCH 32.5 pg (25.0-35.0); MCHC 33.6 g/dL (31.0-37.0); MCV 96.7 fL (80.0-100.0); Mean Platelet Volume 8.5; Monocytes # (A) 0.5 k/uL (0-1.0); Monocytes % (A) 9 %; Neutrophils % (A) 69 %; Platelet Count 139 k/uL (150-450); RBC 3.64 m/uL (4.30-5.90); RDW 14.1 % (11.5-15.5); WBC 5.9 k/uL (3.8-10.6)
[2019-12-23 15:28] LABS: Partial Thromboplastin Time 24.5 sec (22.0-30.0); Prothrombin Time 10.8 sec (9.0-12.0)
[2019-12-23 15:33] LABS: ALT 15 U/L (4-49); AST 41 U/L (17-59); African American GFR (CKD) >90 (>60 ml/min/1.73 sqM); Albumin 3.3 g/dL (3.5-5.0); Alkaline Phosphatase 121 U/L (38-126); Blood Urea Nitrogen 30 mg/dL (9-20); Calcium 8.6 mg/dL (8.4-10.2); Chloride 88 mmol/L (98-107); Glucose 84 mg/dL (74-99); Non-African American GFR(CKD) 83 (>60 ml/min/1.73 sqM); Sodium 141 mmol/L (137-145); Total Bilirubin 0.8 mg/dL (0.2-1.3); Total Protein 6.8 g/dL (6.3-8.2)
[2019-12-23 15:39] LABS: Anion Gap 9 mmol/L
[2019-12-23 15:41] LABS: Potassium 2.1 mmol/L (3.5-5.1)
[2019-12-23 15:42] LABS: Carbon Dioxide 44 mmol/L (22-30)
[2019-12-23] MEDS ORDERED: SODIUM CHLORIDE 0.9% 500 ML 500 ML IV STA (15:43)
[2019-12-23] MEDS ORDERED: POTASSIUM CHLORIDE 20 MEQ in WATER FOR INJECTION 1 100ML.BAG IVPB STA (15:44)
[2019-12-23] MEDS: POTASSIUM BICARBONATE/CIT AC 20 MEQ TABLET.EFF PO ONE ×2 (16:01→16:07)
[2019-12-23 16:06] VITALS: RESP 19
[2019-12-23] MEDS ORDERED: POTASSIUM CHLORIDE ER 20 MEQ TAB.ER PO STA (16:09)
[2019-12-23 17:07] VITALS: BP 158/99; PULSE 89; TEMP 98.7
== END 2019-12-23 19:16 | disposition other institution (70) ==
LOC: EC 13:29
DX: C02.9 Malignant neoplasm of tongue, unspecified (principal); F17.200 Nicotine dependence, unspecified, uncomplicated; I10 Essential (primary) hypertension; Z79.1 Long term (current) use of non-steroidal anti-inflammatories (NSAID); Z88.0 Allergy status to penicillin; Z87.19 Personal history of other diseases of the digestive system; Z98.890 Other specified postprocedural states
CPT/HCPCS: 99284; 96365; 96366; 96375; 96361 ×2; 36415; 80053; 85025; 85610; 85730; J2270; J3480